=== PATIENT | male | born 1960 | race Caucasian/White ===

== ENCOUNTER 2022-03-19 10:58 | Outpatient (CLI) | payer MEDICARE, SELFPAY | END 2022-03-19 10:59 | disposition home or self-care (01) | LOC: WOUND 10:58 | PROVIDERS: PCP Family Medicine; Visit Provider Nurse Practitioner Family | DX: E11.621 Type 2 diabetes mellitus with foot ulcer (principal); L97.516 Non-pressure chronic ulcer of other part of right foot with bone involvement without evidence of necrosis; M86.171 Other acute osteomyelitis, right ankle and foot; Z79.84 Long term (current) use of oral hypoglycemic drugs; Z79.4 Long term (current) use of insulin | CPT/HCPCS: 11042 ==

== ENCOUNTER 2022-03-26 13:47 | Outpatient (CLI) | payer MEDICARE, SELFPAY | END 2022-03-26 13:48 | disposition home or self-care (01) | LOC: WOUND 13:47 | PROVIDERS: PCP Family Medicine; Visit Provider Nurse Practitioner Family | DX: E11.621 Type 2 diabetes mellitus with foot ulcer (principal); L97.516 Non-pressure chronic ulcer of other part of right foot with bone involvement without evidence of necrosis; M86.171 Other acute osteomyelitis, right ankle and foot; Z79.4 Long term (current) use of insulin; Z79.84 Long term (current) use of oral hypoglycemic drugs | CPT/HCPCS: 11043 ==

== ENCOUNTER 2022-05-28 09:34 | Outpatient (CLI) | payer OTHER, SELFPAY ==
--- NOTE | 2022-05-28 11:00 | CRLHL7_ITS ---
For Patients: As a result of the Cures Act, medical imaging exams and procedure reports are released immediately into your electronic medical record. You may view this report before your referring provider. If you have questions, please contact your health care provider. Indication: previous osteo infection, post-op with infection Technique: Right foot 3 views Comparison: MRI 02/13/2022 Findings: Amputation of the great toe noted. No soft tissue gas. No cortical destruction, periostitis or fracture. Large posterior calcaneal spur. Vascular calcifications. Impression: No evidence of osteomyelitis. Dictated by Joss Reyes MD @ 05/28/2022 11:43:53 AM (Electronically Signed)
== END 2022-05-28 09:35 | disposition home or self-care (01) ==
PROVIDERS: PCP Family Medicine; Visit Provider Nurse Practitioner Family
DX: T81.31XA Disruption of external operation (surgical) wound, not elsewhere classified, initial encounter (principal); E11.621 Type 2 diabetes mellitus with foot ulcer; L97.512 Non-pressure chronic ulcer of other part of right foot with fat layer exposed; Z79.4 Long term (current) use of insulin; Z79.84 Long term (current) use of oral hypoglycemic drugs
CPT/HCPCS: 11042; 73630; 99213

== ENCOUNTER 2022-06-04 11:19 | Outpatient (CLI) | payer OTHER, SELFPAY | END 2022-06-04 11:20 | disposition home or self-care (01) | LOC: WOUND 11:19 | PROVIDERS: PCP Family Medicine; Visit Provider Nurse Practitioner Family | DX: E11.621 Type 2 diabetes mellitus with foot ulcer (principal); T81.31XA Disruption of external operation (surgical) wound, not elsewhere classified, initial encounter | CPT/HCPCS: 11042 ==

== ENCOUNTER 2022-06-04 12:16 | Outpatient (CLI) | payer OTHER, SELFPAY | END 2022-06-04 12:17 | disposition home or self-care (01) | LOC: LAB 12:18 | PROVIDERS: PCP Family Medicine; Visit Provider Nurse Practitioner Family | DX: L97.516 Non-pressure chronic ulcer of other part of right foot with bone involvement without evidence of necrosis (principal) | CPT/HCPCS: 11042; 87070 ==

== ENCOUNTER 2022-06-05 10:45 | Outpatient (CLI) | payer OTHER, SELFPAY ==
--- NOTE | 2022-06-05 11:15 | CRLHL7_ITS ---
For Patients: As a result of the Century Cures Act, medical imaging exams and procedure reports are released immediately into your electronic medical record. You may view this report before your referring provider. If you have questions, please contact your health care provider. HISTORY: Edema/erythema to surgical site in the right foot. Evaluate for osteomyelitis. TECHNIQUE: Axial sagittal and coronal T1, proton density and STIR images were obtained of the right foot without contrast administration. COMPARISON: 05/28/2022 right foot radiographs, 02/13/2022 right foot MRI. FINDINGS: Changes of 1st toe amputation are again noted. Surgical wound at the amputation site with fluid collection in the soft tissues of the surgical bed measuring 1.9 x 0.9 cm (series 5, image 12). T1 bone marrow signal is preserved without evidence of osteomyelitis. - Diffuse superficial and deep soft tissue edema. Diffuse muscle atrophy is again noted. The flexor and extensor tendons are intact. Nodule along the medial band of the plantar aponeurosis is increased in size now measuring 14 x 8 mm previously 11 x 4 mm. Bipartite tibial hallux sesamoid is again noted. Lisfranc ligament is intact. Second 3rd TMT degenerative changes are again noted. - IMPRESSION: 1. Wound at the 1st toe amputation site with fluid collection in the surgical bed. Differential includes seroma or abscess. 2. No evidence of osteomyelitis. 3. Nodule along the medial band of the plantar aponeurosis is increased in size, possibly plantar fibroma. Dictated by Joss Keyes MD @ 06/05/2022 5:15:21 PM (Electronically Signed)
== END 2022-06-05 10:46 | disposition home or self-care (01) ==
LOC: MRI 10:47
PROVIDERS: PCP Family Medicine; Visit Provider Nurse Practitioner Family
DX: E11.621 Type 2 diabetes mellitus with foot ulcer (principal); L97.512 Non-pressure chronic ulcer of other part of right foot with fat layer exposed; R60.9 Edema, unspecified; E11.40 Type 2 diabetes mellitus with diabetic neuropathy, unspecified
CPT/HCPCS: 73718

== ENCOUNTER 2022-07-21 09:52 | Outpatient (CLI) | payer OTHER, SELFPAY ==
[2022-07-21 14:34] LABS: Chloride* 104 mmol/L (96-114); Potassium* 4.8 mmol/L (3.6-5.1); Sodium* 137 mmol/L (135-149)
[2022-07-21 14:37] LABS: Carbon Dioxide* 24 mmol/L (20-32); Creatinine* 1.8 mg/dL (0.5-1.5); Estimated Glomerular Filt Rate 43 ml/min
[2022-07-21 14:38] LABS: Blood Urea Nitrogen* 29 mg/dL (7-30); Calcium* 9.2 mg/dL (8.4-10.6); Glucose* 324 mg/dL (60-115)
== END 2022-07-21 09:53 | disposition home or self-care (01) ==
LOC: FBOREF 09:54
PROVIDERS: PCP Family Medicine; Visit Provider Family Medicine
DX: I10 Essential (primary) hypertension (principal); E11.9 Type 2 diabetes mellitus without complications
CPT/HCPCS: 80048

== ENCOUNTER 2022-07-24 10:01 | Day surgery (SDC) | payer OTHER, SELFPAY ==
[2022-07-24] VITALS (18 sets, daily range): BP systolic 158–191; BP diastolic 86–114; PULSE 89–94; RESP 16–18; TEMP 36.6; O2SAT 98–100; BMI 30.7
[2022-07-24] MEDS: BUPIVACAINE 0.5% 30 ML INJECTION (13:03)
--- NOTE | 2022-07-24 19:05 | P.GSOP_ITS ---
Operative Note Date of procedure: 07/24/22 Type of Procedure: 1. Debridement and partial resection 1st metatarsal right foot 2. Secondary closure of surgical wound dehiscence right foot Procedure Description: After discussing the risks and benefits of the procedure, the patient signed informed consent.? The operative site was marked and the patient was brought to the operating room and placed on the operating table in supine position.? Care was taken to pad the patient's pressure points.?? 30 mL of 0.5% bupivacaine plain was injected into the right foot.?? The operative site was then prepped and draped in the usual sterile fashion.? A time-out was then performed. ? Due to revascularization a tourniquet was not used. Elliptical incision was made around the open wound and then extended proximal on the medial 1st metatarsal. Incision was carried down through skin and subcutaneous tissues directly to bone. Cautery was used to obtained coagulation. All unhealthy tissue from the wound was excised using a rongeur. The tibial and fibular sesamoid bones were identified and excised in total. Wound was explored for loose bony fragments and these were removed. First metatarsal remaining shaft was identified and periosteum reflected proximally. Rongeur was used to take a small bite on the medial 1st metatarsal at a level that did have active bleeding indicating healthy bone. At this level sagittal saw was used to make a transverse cut and the distal portion of the bone removed and sent to pathology. A portion was also sent to culture. The remaining metatarsal head bleeding throughout and appeared healthy. We thoroughly irrigated with normal sterile saline. A #10 SIMÓN drain was placed. Subcutaneous tissues reapproximated with 3- 0 Vicryl and skin reapproximated with 3-0 nylon with multiple retention sutures. Excellent closure was obtained with no stress on the flaps. Sterile dressing was applied. The patient was transported to the recovery area in stable condition. The patient tolerated the procedure well. He will be discharged home. He is weight-bearing to the heel. He is encouraged to rest and elevate as much as possible. He is going to resume his clindamycin as he felt better on that antibiotic and I think the foot looked better while he was on it as well. He is shown how to remove the SIMÓN drain which can be done tomorrow. If increased bleeding is noted drinking remain in and is instructed to call me. Findings: Necrotic bone sent to pathology and culture. Complications: None apparent Anesthesia: local Surgeon: Aries [place] DPM Estimated blood loss (mL): 20 Condition: stable Disposition: same day
== END 2022-07-24 13:41 | disposition home or self-care (01) ==
PROVIDERS: PCP Family Medicine; Visit Provider Podiatrist
PROC: (CPT 11044; principal; 2022-07-24 11:30)
DX: E11.621 Type 2 diabetes mellitus with foot ulcer (principal); L97.414 Non-pressure chronic ulcer of right heel and midfoot with necrosis of bone
CPT/HCPCS: 11044; 28005; 87186; 87205; 88304; 88311; J3490

== ENCOUNTER 2022-10-23 16:37 | Outpatient (CLI) | payer OTHER, SELFPAY ==
[2022-10-23 17:22] LABS: Chloride* 104 mmol/L (96-114); Potassium* 4.6 mmol/L (3.6-5.1); Sodium* 139 mmol/L (135-149)
[2022-10-23 17:25] LABS: Blood Urea Nitrogen* 23 mg/dL (7-30); Calcium* 9.1 mg/dL (8.4-10.6); Carbon Dioxide* 29 mmol/L (20-32); Creatinine* 1.5 mg/dL (0.5-1.5); Estimated Glomerular Filt Rate 53 ml/min; Glucose* 241 mg/dL (60-115); Magnesium* 1.9 mg/dL (1.5-2.6)
== END 2022-10-23 16:38 | disposition home or self-care (01) ==
LOC: NFLDREF 16:38
PROVIDERS: PCP Family Medicine; Visit Provider Family Medicine
DX: I10 Essential (primary) hypertension (principal); N18.30 Chronic kidney disease, stage 3 unspecified; E11.9 Type 2 diabetes mellitus without complications
CPT/HCPCS: 80048; 83735

== ENCOUNTER 2023-05-17 09:14 | Outpatient (CLI) | payer MEDICARE, BC, SELFPAY ==
[2023-05-17 15:03] LABS: Anion Gap 9 mEq/L (7-15); Blood Urea Nitrogen* 28 mg/dL (7-30); Calcium* 9.8 mg/dL (8.4-10.6); Carbon Dioxide* 24 mmol/L (20-32); Chloride* 104 mmol/L (96-114); Cholesterol* 197 mg/dL (90-199); Creatinine* 1.6 mg/dL (0.5-1.5); Estimated Glomerular Filt Rate 49 ml/min; Glucose* 269 mg/dL (60-115); Potassium* 4.8 mmol/L (3.6-5.1); Sodium* 137 mmol/L (135-149); Triglycerides* 258 mg/dL (40-149)
[2023-05-17 15:04] LABS: HDL Cholesterol* 39 mg/dL (>=40); LDL Cholesterol Calculated 106 mg/dL (<100)
== END 2023-05-17 09:15 | disposition home or self-care (01) ==
PROVIDERS: PCP Family Medicine; Visit Provider Family Medicine
DX: I10 Essential (primary) hypertension (principal); E11.9 Type 2 diabetes mellitus without complications; N18.30 Chronic kidney disease, stage 3 unspecified; Z79.4 Long term (current) use of insulin; Z13.6 Encounter for screening for cardiovascular disorders
CPT/HCPCS: 80048; 80061

== ENCOUNTER 2023-08-16 08:18 | Outpatient (CLI) | payer MEDICARE, BC, SELFPAY | END 2023-08-16 08:19 | disposition home or self-care (01) | PROVIDERS: PCP Family Medicine; Visit Provider Family Medicine | DX: E11.9 Type 2 diabetes mellitus without complications (principal); I10 Essential (primary) hypertension; Z12.5 Encounter for screening for malignant neoplasm of prostate; Z79.4 Long term (current) use of insulin | CPT/HCPCS: 80048; 84153 ==

== ENCOUNTER 2023-10-14 09:20 | Outpatient (CLI) | payer MEDICARE, BC, SELFPAY | END 2023-10-14 09:21 | disposition home or self-care (01) | PROVIDERS: PCP Family Medicine; Referring Provider Family Medicine; Visit Provider Otolaryngology | DX: H91.93 Unspecified hearing loss, bilateral (principal); Z13.29 Encounter for screening for other suspected endocrine disorder | CPT/HCPCS: 84443; 85025; 85651; 86039; 86431; 86618 ==

== ENCOUNTER 2023-10-19 09:56 | Outpatient (CLI) | payer MEDICARE, BC, SELFPAY ==
--- NOTE | 2023-10-19 10:00 | CRLHL7_ITS ---
For Patients: As a result of the Century Cures Act, medical imaging exams and procedure reports are released immediately into your electronic medical record. You may view this report before your referring provider. If you have questions, please contact your health care provider. INDICATION: Otorrhea Comparison none. TECHNIQUE: Noncontrast CT of the temporal bones. FINDINGS: Right: The right mastoid air cells and mastoid antrum are clear. Middle ear cavity is clear. Normal articulation of the ossicular chain. No opacification of sinus tympani. Normal tympanic membrane. The external auditory canal is patent. Tegmen tympani is intact. Normal mineralization of the otic capsule. Normal cochlea and vestibule. Marked thinning of the osseous margin of the superior semicircular canal but no peace dehiscence. Normal internal auditory canal. Left: Opacification of the posterior inferior left mastoid air cells. The mastoid air cells and mastoid antrum are clear. Middle ear cavity is clear. Normal articulation of the ossicular chain. No opacification of sinus tympani. Normal tympanic membrane. The external auditory canal is patent. Tegmen tympani is intact. Normal mineralization of the otic capsule. Normal cochlea and vestibule. Marked thinning and focal dehiscence of the osseous margin of the superior semicircular canal (best seen on series 10, image 53; series 7, images 75-76). Normal internal auditory canal. Other: Opacification of the posterior left ethmoid air cells. Remaining visualized paranasal sinuses are clear. No facial fractures. No abnormal soft tissue swelling or inflammation about the methodist bones or mastoid bones. IMPRESSION: 1. Normal right temporal bone structures 2. Opacification of the posterior inferior left mastoid air cells. The remaining left mastoid air cells and middle ear cavity are clear. 3. Marked thinning and focal dehiscence of the osseous margin of the left superior semicircular canal. Please note that all CT scans at this facility use dose modulation, iterative reconstruction, and/or weight-based dosing when appropriate to reduce radiation dose to as low as reasonably achievable. Dictated by Yair Villegas MD @ 10/19/2023 4:36:09 PM (Electronically Signed)
== END 2023-10-19 09:57 | disposition home or self-care (01) ==
LOC: CT 10:03
PROVIDERS: PCP Family Medicine; Visit Provider Otolaryngology
DX: H92.10 Otorrhea, unspecified ear (principal)
CPT/HCPCS: 70480

== ENCOUNTER 2023-11-18 10:01 | Outpatient (CLI) | payer MEDICARE, BC, SELFPAY ==
--- NOTE | 2023-11-18 10:00 | CT_ITS ---
Patient: PILY WILSON Facility:?[facility] Patient ID:?[id number] Site Patient ID:?[id number]. Site :?[id number] Study:?CT-Head WITHOUT-11/18/2023 10:37:12 AM Ordering Physician:?VILMA Final Report: INDICATION: DIZZINESS, GIDDINESS, EAR PAIN AND EYE PRESSURE COMPARISON: 01/27/2023 MRI TECHNIQUE: A CT volumetric acquisition was performed of the brain without IV contrast. Please note that all CT scans at this facility use dose modulation, iterative reconstruction, and/or weight-based dosing when appropriate to reduce radiation dose to as low as reasonably achievable. FINDINGS: Chronic areas of decreased attenuation are present within the periventricular and subcortical white matter bilaterally. Mild generalized cortical atrophy. Degenerative changes at the temporomandibular joints. Partial opacification of the posterior left ethmoid sinus, as before. Mild mucosal thickening within the posterior left maxillary sinus. No midline shift or hydrocephalus. No hemorrhage. IMPRESSION: Chronic white matter changes likely reflecting small-vessel ischemic disease. Generalized cortical atrophy noted. Chronic ischemic change to the telma. No acute findings. Please note that all CT scans at this facility use dose modulation, iterative reconstruction, and/or weight-based dosing when appropriate to reduce radiation dose to as low as reasonably achievable. Dictated by Joss Reyes MD @ 11/18/2023 10:43:32 AM Signed by:?Joss Reyes MD @11/18/2023 10:43:32 AM (Electronic Signature)
== END 2023-11-18 10:02 | disposition home or self-care (01) ==
LOC: CT 10:02
PROVIDERS: PCP Family Medicine; Visit Provider Otolaryngology
DX: R42 Dizziness and giddiness (principal); I67.82 Cerebral ischemia
CPT/HCPCS: 36415; 70450; 82565

== ENCOUNTER 2024-03-20 12:23 | Outpatient (CLI) | payer MEDICARE, BC, SELFPAY ==
--- OUTSIDE RECORDS SUMMARY | 2024-03-20 12:32 | XMS_ITS | Clinical Summary ---
Author Organization [facility] Address [address] [place] [address] Care Team Providers Care Commercial Underwriter Name Role Phone Elsewhere, Pcp Primary Care Provider Unavailabl e Source Comments Patient records contain information from all sites at [facility]. For routine questions regarding patient records, call [phone] during business hours, M-F 8:00 AM - 5:00 PM Central Time. Record requests for emergency care only can be directed to [phone] at any time.[facility] Allergies Active Allergy Reactions Criticality Noted Date Comments Chlorthalidone Hypotension (Reselect Reaction) 01/29/2022 Caused dizziness at 25mg. Empagliflozin GI intolerance 02/09/2022 GI tolerance Lisinopril Other (see comments) 04/15/2017 Methocarbamol Other (see comments) 07/23/2020 Tiff loopy, dizzy for 1.5 days. Nexgpba-Fvl-Svo Reductase Inhibitors Other (see comments) 08/19/2014 Medications Medication Sig Dispensed Refills Start Date End Date Status blood-glucose meter kit Dispense meter, test strips, lancets covered by pt ins. E11.65 IDDM type II, uncontrolled - Test 4 times/day. Reason: High A1C 10/30/2020 Active blood sugar diagnostic (glucose blood) strips Use to test blood glucose twice daily 200 each 3 02/20/2021 Active flash glucose scanning reader (FreeStyle Carmina [address] [place]) miscIndications:Kym betes Mellitus Type 2 With Diabetic Nephropathy (HCC) 1 application daily. 1 each 05/21/2021 Active FreeStyle Carmina 2 Sensor kitIndications:Diab etes Mellitus Type 2 With Diabetic Nephropathy (HCC) CHANGE EVERY 14 DAY 6 each 3 10/28/2021 Active pen needle, diabetic 31 gauge x 5/16 needle 4 Injection daily. Use to inject 4 times daily as directed. 300 each 3 12/23/2021 Active metFORMIN (FORTAMET) 500 mg 24 hr tablet Take 1 tablet (500 mg total) by mouth 2 (two) times a day with meals. 180 tablet 11 01/30/2022 Active Additional Information Patient taking differently:500 mg oralDaily with breakfast, Reported on 11/20/2022 Basaglar KwikPen U-100 Insulin 100 unit/mL (3 mL) injectionIndication s:Diabetes Mellitus Type 2 With Diabetic Nephropathy Hyperglycemic (HCC),Care Home Use Of Insulin Active (HCC) Inject 60 Units under the skin at bedtime. 60 mL 3 01/30/2022 Active clopidogreL (PLAVIX) 75 mg tablet Take 75 mg by mouth daily. 08/31/2022 Active insulin aspart U-100 (NovoLOG FlexPen) 100 unit/mL (3 mL) injection Inject 20 Units under the skin 3 (three) times a day. 10/29/2020 Active Ozempic 1 mg/dose (4 mg/3 mL) injection INJECT 1 MG SUBCUTANEOUSLY ONCE A WEEK 10/20/2022 Active oxyCODONE (OXY-IR) 5 mg immediate release capsule Take 5 mg by mouth as needed. 07/21/2022 Active candesartan (ATACAND) 8 mg tablet Take 1 tablet by mouth once daily 90 tablet 12/28/2022 Active Additional Information Patient not taking.Reported on 03/30/2023 tamsulosin (FLOMAX) 0.4 mg 24 hr capsule Take 0.4 mg by mouth daily. 12/17/2022 Active verapamiL (CALAN-SR) 120 mg ER tablet Take 1 tablet (120 mg total) by mouth at bedtime. 30 tablet 1 01/07/2023 Active gabapentin (NEURONTIN) 300 mg capsule Take 300 mg by mouth as needed. Active Active Problems Problem Noted Date Diagnosed Date Atrial Fibrillation Paroxysmal 01/30/2022 Overview: He developed an episode of afib during a 03/2021 dobutamine stress echo. He has been on aspirin and metoprolol. Body Mass Index 32.0 To 32.9 Adult 01/28/2022 Malabsorption 01/28/2022 Overview: Reduced B12 absorption due to longstanding metformin use. Diabetes Mellitus 2 Ulcer Toe 10/07/2021 Overview: He has a wound on the right first metatarsal since 01/2021, initially he was under the care of podiatry. 08/2021 MRI no osteomyelitis. Required doxycycline 11/2021 for infection. Wound has included silvadene, iodosorb and it was healing well with Apligraf. He then developed cellulitis and toe infection 01/2022 which resulted in the wound opening back up. Xray was negative for osteomyelitis. Cultures prior to antibiotics grew staph lugdunesis. He presented with hypotension and worsening foot infection on 01/28/22 and blood cultures x2 were no growth. Vascular studies: 10/2021 lower extremity ANTOINE with TcPO2. On the R. 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 He also saw Dr. Duong with vascular at that time, no revascularization was recommended. 02/05/22 He initiated care with [facility]. Last Assessment & Plan: He states his wound has worsened since last week. His is doing wound care at home. She states that she cleaned on a pus pocket on Wednesday. He is finishing up his doxycycline for STAPHYLOCOCCUS LUGDUNENSIS 2+ The wound measures 0.5 cm x 0.9 x 0.5 undermining at 3:00 o'clock. The wound bed itself is beefy red. There is periwound excoriation measuring 1.5 x 1.5 cm. The toe is showing erythema. There is no edema in the foot. PROCEDURAL PAUSE Procedural pause conducted to verify: correct patient identity, procedure to be performed, and as applicable, correct side and site, correct patient position, and availability of implants, special equipment, or special requirements. The wound was cleansed with saline and dried. A new wound culture was obtained today. Wound was rinse with saline and cleansed with Hysept 0.5%, rinsed with saline and dried. Sharp debridement was done using a # 3 circular curette to remove the non viable tissue in the periwound skin. No bleeding occurred. Wounds rinse with Saline and dried. KerraCel AG was tucked into the wound bed covered with sterile 2 x [address] with cover stretch tape. I am concerned about his overall constitution. He states his vision is funny his blood pressure is elevated again. He has not started his Ozempic or Jardiance because he did know what he was supposed to do regarding these medications. I suggested he go to [place]' emergency department for his overall constitutional symptoms. I feel he would need Ortho ID and would benefit from hospitalization to workup his multiple chronic medical problems. He is refusing to go. He states he needs to fix his planter. I felt that he needs to be seen in a wound center. He would prefer to not go to [place]. I did put a referral in for him to go to the [facility] wound clinic in [place]. He will call to make an appointment. The benefit of a center such as [place] is the accessibility of hyperbaric therapy, if he would meet the criteria. Hypertensive Chronic Kidney Disease (CKD) Stage 3a Glomerular Filtration Rate (GFR) 45 To 59 03/14/2021 Overview: Losartan replaced with Valsartan 12/2021 Medications: Valsartan 160mg, Metoprolol succinate 150mg (for SVT). 01/28/22: pending brain imaging, holding valsartan due to dizziness with Bps < 170s, likely due to impaired autoregulation of cerebral blood flow. Last Assessment & Plan: Consider screening for Carotid Stenosis, given dizziness with slight decreases in Bps. For now, low Bps likely related to underlying foot infection. Hold Valsartan until Bps normalize. Diabetes Mellitus Type 2 With Diabetic Nephropat hy 11/11/2016 Overview: Diagnosed: Complications: Nephropathy, Neuropathy Medications: Metformin 500 mg bid (max dose with GFR 30-45), Basiglar 60 units, Aspart 15-20 units tid with meals Freestyle Carmina Last Assessment & Plan: At follow up explore adding GLP-1 agonist, SGLT2 inhibitor and reducing insulin. Supraventricular Tachycardia, Unspecified 2016 Resolved Problems Problem Noted Date Diagnosed Date Resolved Date Elevated Alkaline Phosphatase 01/28/2022 01/28/2022 Cough Acute 01/27/2022 01/28/2022 Overview: Productive cough with yellow sputum Last Assessment & Plan: He is complaining of fatigue. He has a cough which is productive with yellow sputum. He denies any fevers. His states ? you can hear it in his chest ? . X-ray was done which was normal. He was put on a Z-Reyes. He should continue the Z-Reyes due to his symptomatology. He will also take Mucinex 600 mg every 12 hours while he has the cough. Chronic Kidney Disease (CKD) , Stage 3a Glomerular Filtration Rate (GFR) 45 To 59 03/14/2021 2021 Other Intervertebral Disc Di splacement Lumbar Region 08/25/2018 01/28/2022 Encounters Date Type Department Care Team Description 01/19/2024 Clinical Communication Department of Otorhinolaryngology in [place], [place] [address] [place] [address] Олег Gracia M.D. Order Request; Pre-visit Intake 01/12/2024 Clinical Communication Department of Otorhinolaryngology in [place], [place] [address] [place] [address] Vinicius Rios M.D. 01/05/2024 Clinical Communication [facility] Emergency Department Formerly [facility], [facility] [place] [phone] Nory Andujar M.S.N., R.N. Follow-up 01/04/2024 1:10 PM CDT - 01/04/2024 5:35 PM CDT Emergency [facility] Emergency Department [address] [place] [phone] Uday Quan APRN, C.N.P., D.N.P. Otitis Externa Acute Left (Primary Dx); Otitis Media Unspecified Left Ear Discharge Disposition: Home or Self Care 01/04/2024 Clinical Communication Department of Otorhinolaryngology in [place], [place] [address] [address] Олег Gracia M.D. 12/29/2023 Clinical Communication Department of Otorhinolaryngology in [place], [place] [address] [address] Олег Gracia M.D. 12/22/2023 11:00 AM CDT Comprehensive Visit Department of Otorhinolaryngology in [place], [place] [address] [address] Олег Gracia M.D. Dizziness (Primary Dx); Imbalance Non Orthopedic; Eustachian Tube Disorder Bilateral from Last 3 Months Immunizations Name Administration Dates Next Due Influenza TIV (IM) 09/28/2011 Influenza, Seasonal, Injectable 09/28/2011 PPSV23 09/28/2011 RZV (SHINGRIX) 02/11/2021(Deferred: Patient karen lobo) SARS-COV-2 (COVID-19) - PFIZ ER (Discontinued)(12 years or older) 12/26/2020,12/05/2020 Td (Adult), adsorbed 11/10/2000 Tdap 09/28/2011 influenza vaccine QV(FLUBLOK ) (18 years or older) (PF) 08/11/2021 influenza vaccine quad (FLUZONE/FLUARIX) (6 months and older)(PF) 07/23/2020,09/06/2019,08/16/2018, 017,11/12/2016 Family History Medical History Relation Name Comments Diabetes mellitus type II Brother 1 Artie Diabetes type II Brother 2 Gar Hypertension Father Stroke Father Diabetes mellitus type II Mother Relation Name Status Comments Brother 1 Artie Alive Brother 2 Gar Alive Father Mother Social History Tobacco Use Types Packs/Day Years Used Date Smoking Tobacco: Former Cigarettes Q uit: 2018 Smokeless Tobacco: Never Tobacco Cessation:Counseling Given: Not Answered Alcohol Use Standard Drinks/Week Comments Yes 1 (1 standard drink = 0.6 oz pur e alcohol) once in a while PHQ-2 Answer Date Recorded PHQ-2 Score 0 09/22/2021 Nutrition Answer Date Recorded Nutrition: EVOO Fat Source Unknown 11/25 Nutrition: Servings of Fruits/Vegetables per Day Not on file 11/25/2020 Dental Answer Date Recorded Dental: Regular Dentist Unknown 11/28/19 21 Sex and Gender Information Value Date Recorded Sex Assigned at Not on file Gender Identity Not on file Sexual Orientation Not on file Last Filed Vital Signs Vital Sign Reading Time Taken Comments Blood Pressure 189/116 01/04/2024 5:15 PM CDT Pulse 91 01/04/2024 5:15 PM CDT Temperature 36.7 ??C (98.1 ??F) 01/04/2024 1:13 PM CD T Respiratory Rate 18 01/04/2024 1:13 PM CDT Oxygen Saturation 99% 01/04/2024 5:15 PM CDT Inhaled Oxygen Concentration - - Weight 112 kg (246 lb 7.6 oz) 01/04/2024 1:12 PM CDT Height 182.3 cm (5' 11.77) 03/30/2023 8:53 AM C DT Body Mass Index 33.64 03/30/2023 8:53 AM CDT Plan of Treatment Upcoming Encounters Date Type Department Care Team (Latest Contact Info) Description 04/04/2024 10:45 AM CDT Diagnostic Department of Otorhinolaryngology in [place], [place] [address] [place] [address] Олег Gracia M.D. [address] [place] [phone] Jo Mota Au.D., M.A. [address] [place] [address] 04/04/2024 1:00 PM CDT Diagnostic Department of Otorhinolaryngology in [place], [place] [address] [place] [address] Олег Gracia M.D. [address] [place] [phone] Glen Graham Au.D. [address] [place] [address] 05/01/2024 12:15 PM CDT Office Visit Department of Neurology in [place], [place] [address] [place] [address] Yunier Galloway M.D., M.P.H. [address] [place] [address] Discharge Disposition: Home or Self Care Health Maintenance Due Date Last Done Comments CT Colonography 1962 Cologuard 1962 Dilated Eye Exam 1962 FIT 1962 Hepatitis C Screening 1962 Pneumococcal vaccine (0-64 y ears) (2 of 2 - PCV) 09/28/2012 09/28/2011 Diabetes Education 02/11/2021 Hemoglobin A1C 03/11/2022 2021, 09/20, 09/18/2021, Additional history exists Urine Albumin 09/18/2022 09/18/2021 Diabetic Office Visit with F oot Exam 10/29/2022 10/29/2021 (Performed elsewhere) COVID-19 Vaccine (4 - 2022-2 4 season) 2023 08/11/2021, 12/26/2020, 12/05/2020 Influenza Vaccine (#1) 2023 , 07/23/2020, 09/06/2019, Additional history exists Office Visit for Blood Press ure Check / Re-check 06/30/2023 03/30/2023 Depression Screening (Annual PHQ-2) 09/20/2023 Lipid (Cholesterol) Screening 11/25/2023, 07/17/2022, 02/02/2022, Additional history exists Creatinine Level (Kidney Fun ction Test) 01/03/2025 01/04/2024, 12/23/2022, 11/24/2022, Additional history exists Potassium Level 01/03/2025 01/04/2024, 0401/2023, 11/24/2022, Additional history exists Sodium Level 01/03/2025 01/04/2024, 03/0 03/2023, 07/20/2022, Additional history exists Colonoscopy 12/03/2027 12/02/2017 Colorectal Cancer Screening 12/03/2027 DTaP,Tdap,and Td Vaccines (3 - Td or Tdap) 04/19/2033 04/19/2023, 09/28/2011, 11/10/2000 Zoster Vaccines Completed 04/19/2023, 02/11/2021 Procedures Procedure Name Priority Date/Time Associated Diagnosis Comments GRAM STAIN Routine 01/04/2024 5:24 PM CDT FUNGAL SMEAR Routine 01/04/2024 5:24 PM CDT BACTERIAL CULTURE, AEROBIC + SUSC Routine 01/04/2024 5:24 PM CDT FUNGAL CULTURE, ROUTINE Routine 01/04/2024 5:24 PM CDT POTASSIUM, S/P STAT 01/04/2024 3:[address] TEMPORAL BONE WITHOUT IV CONTRAST RAD - Routine (most inpatients and all outpatients) 01/04/2024 3:41 PM CDT C-REACTIVE PROTEIN (CRP), S/P STAT 01/04/2024 2:30 PM CDT SEDIMENTATION RATE, B STAT 01/04/2024 2:30 PM CDT CBC WITH DIFFERENTIAL, B STAT 01/04/2024 2:30 PM CDT BASIC METABOLIC PANEL, S/P STAT 01/04/2024 2:30 PM CDT LIPID PANEL, S Routine 11/24/2022 2:57 PM NETWORK PROGRAM MANAGER Hypertensive Chronic Kidney Disease (CKD) Stage 3a Glomerular Filtration Rate (GFR) 45 To 59 (HCC) HEMOGLOBIN A1C, B Routine 2021 10:01 AM CDT Diabetes Mellitus Type 2 With Diabetic Nephropathy (HCC) ALBUMIN, RANDOM, U Routine 09/18/2021 9: 14 AM NETWORK PROGRAM MANAGER Diabetes Mellitus Type 2 Hyperglycemia (HCC) from Last 3 Months or Most Recently Relevant to Health Maintenance Results * (ABNORMAL) Bacterial Culture, Aerobic + Susceptibility (01/04/2024 5:24 PM CDT) Bacterial Culture, Aerobic + Susc With upper respiratory/ora l microbiota(A) 01/08/2024 2:29 PM CDT DTL Bacterial Culture, Aerobic + Susc FILAMENTOUS FUNGUS 2+ (A) 01/08/2024 2:29 PM CDT DTL Comment:Identification repor dat under fungal culture. Swab (Ear, Left) 01/04/2024 5:24 PM CDT 01/04/2024 7:04 PM CDT Comment:Specimen Source Site : Swab Koko Lee P.A.-C. LAB MICROBIOLOGY - GENERAL ORDERABLES Performing Organization Address City/[facility]/ZIP Co de Phone Number [facility] [address] [place] [address], [facility] [place] [address] * (ABNORMAL) Fungal Smear (01/04/2024 5:24 PM CDT) Fungal Smear HYPHAE(A) 01/04/2024 10:21 PM CDT DTL Swab (Ear, Left) 01/04/2024 5:24 PM CDT 01/04/2024 7:04 PM CDT Comment:Specimen Source Site : Swab Koko Lee P.A.-C. LAB MICROBIOLOGY - GENERAL ORDERABLES Performing Organization Address City/[facility]/ZIP Co de Phone Number [facility] [address] [place] [address], [facility] [place] [phone] * (ABNORMAL) Gram Stain (01/04/2024 5:24 PM CDT) Gram Stain GRAM POSITIVE COCCI Rare. (A) 01/04/2024 9:30 PM CDT DTL Swab (Ear, Left) 01/04/2024 5:24 PM CDT 01/04/2024 7:04 PM CDT Comment:Specimen Source Site : Swab Koko Lee P.A.-C. LAB MICROBIOLOGY - GENERAL ORDERABLES Performing Organization Address [facility] Co de Phone Number [facility] [address] [place] [address], [facility] [address] [place] [address] * (ABNORMAL) Fungal Culture, Routine (01/04/2024 5:24 PM CDT) Fungal Culture, Routine ASPERGILLUS FLAVUS COMPLEX Many (A) 01/28/2024 4:05 PM CDT DT Comment: Susceptibility testing is not indicated for all molds. Infectious Diseases consult is required to order mold susceptibility testing. Swab (Ear, Left) 01/04/2024 5:24 PM CDT 01/04/2024 7:04 PM CDT Comment:Specimen Source Site : Swab Koko Lee P.A.-C. LAB MICROBIOLOGY - GENERAL ORDERABLES Performing Organization Address [facility] Co de Phone Number [facility] [address] [place], [place] [address] [address] [place] [address] * Potassium (01/04/2024 3:44 PM CDT) Potassium, P 4.8 3.6 - 5.2 mmol/L 01/04/2024 4:15 PM CDT STMA Blood 01/04/2024 3:44 PM CDT 01/04/2024 3:52 PM CDT Uday Brookesirwan JACOBO C.N.P., Sylvia.N.PJeff L AB BLOOD ADD-ON [facility] [address] [place] [address], [facility] [address] [place] [address] * CT Temporal Bone without IV Contrast (01/04/2024 3:41 PM CDT) Anatomical Region Laterality Modality Head, Neuroradiology RST LOS , Neuroradiology ARZ LOS, Neuroradiology FLA LOS N/A Computed Tomography, Compute d Tomography Impressions 01/04/2024 4:15 PM CDT 1. Findings compatible with left otitis externa and otomastoiditis. No evidence of drainable fluid collection/abscess. 2. Dehiscence of the left superior semicircular canal. Narrative 01/04/2024 4:15 PM CDT EXAM: CT TEMPORAL BONE WITHOUT IV CONTRAST COMPARISON: CT head 12/17/2023 FINDINGS: LEFT: Since 11/27/2023, new soft tissue thickening has appeared throughout the left external auditory canal with associated prominent thickening of the left tympanic membrane. Scattered areas of soft tissue thickening throughout the left middle ear cavity, including Prussak's space without associated osseous erosive or destructive changes. The ossicular chain and scutum are intact. Focal dehiscence of the left superior semicircular canal (7-134, 8-46, 10-80). The left inner ear structures and left IAC are otherwise normal in appearance. Moderate fluid opacification of the left mastoid air cells. No definite evidence of osseous dehiscence, subperiosteal abscess or surrounding inflammatory changes. RIGHT: Thin bone covering of the right superior semicircular canal without evidence of dehiscence. The internal auditory canal, ossicular chain and inner ear structures appear normal. The external auditory canal, middle ear cavity and mastoid air cells are well aerated. Procedure Note Everardo Wiley M.D., Ph.D. - 01/04/2024 EXAM: CT TEMPORAL BONE WITHOUT IV CONTRAST COMPARISON: CT head 12/17/2023 FINDINGS: LEFT: Since 11/27/2023, new soft tissue thickening has appeared throughoutthe left external auditory canal with associated prominent thickening ofthe left tympanic membrane. Scattered areas of soft tissue thickeningthroughout the left middle ear cavity, including Prussak's space without associated osseous erosive ordestructive changes. The ossicular chain and scutum are intact. Focaldehiscence of the left superior semicircular canal (7-134, 8-46, 10-80).The left inner ear structures and left IAC are otherwise normal in appearance. Moderate fluid opacification of the leftmastoid air cells. No definite evidence of osseous dehiscence,subperiosteal abscess or surrounding inflammatory changes. RIGHT: Thin bone covering of the right superior semicircular canal withoutevidence of dehiscence. The internal auditory canal, ossicular chain andinner ear structures appear normal. The external auditory canal, middleear cavity and mastoid air cells are well aerated. IMPRESSION: 1. Findings compatible with left otitis externa and otomastoiditis. Noevidence of drainable fluid collection/abscess. 2. Dehiscence of the left superior semicircular canal. Uday Quan APRN, C.N.P., D.N.P. I MG CT PROCEDURES * (ABNORMAL) Sedimentation Rate (01/04/2024 2:30 PM CDT) [facility] Signature Sedimentation Rate, B 28(H) 2 - 20 mm/h 01/04/2024 3:42 PM CDT DTL Blood (Blood, Venous) 01/04/2024 2:30 PM CDT 01/04/2024 2:45 PM CDT Uday Quan APRN, C.N.P., D.N.P. L AB BLOOD ADD-ON [facility] [address] [place] [address], [place] [facility] [address] [place] [address] * CBC with Differential, Blood (01/04/2024 2:30 PM CDT) [facility] Hemoglobin 14.9 13.2 - 16.6 g/dL 01/04/2024 2:41 PM CDT STMA Hematocrit 42.3 38.3 - 48.6 % 01/04/2024 2:41 PM CDT STMA Erythrocytes 4.68 4.35 - 5.65 x10(12)/L 01/04/2024 2:41 PM CDT ST[facility] MCV 90.4 78.2 - 97.9 fL 01/04/2024 2:41 PM CDT ST[facility] RBC Distrib Width 12.7 11.8 - 14.5 % 01/04/2024 2:41 PM CDT ST[facility] Platelet Count 287 135 - 317 x10(9)/L 01/04/2024 2:41 PM CDT [facility] Leukocytes 6.8 3.4 - 9.6 x10(9)/L 01/04/2024 2:41 PM CDT ST[facility] Neutrophils 4.11 1.56 - 6.45 x10(9)/L 01/04/2024 2:41 PM CDT DH[facility] Lymphocytes 1.71 0.95 - 3.07 x10(9)/L 01/04/2024 2:41 PM CDT STMA Monocytes 0.63 0.26 - 0.81 x10(9)/L 01/04/2024 2:41 PM CDT STMA Eosinophils 0.30 0.03 - 0.48 x10(9)/L 01/04/2024 2:41 PM CDT STMA Basophils 0.07 0.01 - 0.08 x10(9)/L 01/04/2024 2:41 PM CDT ST[facility] Blood (Blood, Venous) 01/04/2024 2:30 PM CDT 01/04/2024 2:38 PM CDT Imtithana Quan APRN, C.N.P., D.N.P. L AB BLOOD ADD-ON [facility] [address] [place] [address], [facility] STMA [facility] [address] [place] [address] [facility] [address] [place] [address] * CRP (C-Reactive Protein) (01/04/2024 2:30 PM CDT) Pathologist [facility] C-Reactive Protein (CRP), S 3.9 <5.0 mg/L 01/04/2024 3:25 PM CDT DT Blood (Blood, Venous) 01/04/2024 2:30 PM CDT 01/04/2024 3:08 PM CDT Uday Quan APRN C.N.P., D.N.P. L AB BLOOD ADD-ON [facility] [address] [place] [address], [facility] [address] [place] [address] * (ABNORMAL) Basic Metabolic Panel (01/04/2024 2:30 PM CDT) [facility] Potassium, P CANCELED mmol/L 01/04/2024 2:55 PM CDT STMA Comment: Specimen was hemolyzed. Redraw has been ordered and is in progress. Result canceled by the ancillary. Sodium, P 140 135 - 145 mmol/L 01/04/2024 2:54 PM CDT STMA Chloride, P 106 98 - 107 mmol/L 01/04/2024 2:54 PM CDT STMA Bicarbonate, P 25 22 - 29 mmol/L 01/04/2024 2:54 PM CDT STMA Anion Gap, P 9 7 - 15 01/04/2024 2:54 PM CDT STMA BUN (Blood Urea Nitrogen), P 30(H) 8 - 24 mg/dL 01/04/2024 2:54 PM CDT STMA Creatinine 1.72(H) 0.74 - 1.35 mg/dL 01/04/2024 2:54 PM CDT STMA Estimated GFR (eGFR) 45(L) >=60 mL/min/BSA 01/04/2024 2:54 PM CDT STMA Comment: Estimated GFR calculated using the 2020 CKD_EPI creatinine equation. Calcium, Total, P 9.7 8.8 - 10.2 mg/dL 01/04/2024 2:54 PM CDT STMA Glucose, P 142(H) 70 - 140 mg/dL 01/04/2024 2:54 PM CDT STMA Blood (Blood, Venous) 01/04/2024 2:30 PM CDT 01/04/2024 2:38 PM CDT Uday Quan APRN C.N.P., D.N.P. L AB BLOOD ADD-ON [facility] [address] [place] [address], [facility] [address] [place] [address] * (ABNORMAL) Lipid Panel (11/24/2022 2:57 PM NETWORK PROGRAM MANAGER) Triglycerides 392(H) mg/dL 11/24/2022 3:36 PM NETWORK PROGRAM MANAGER OWAT Comment: ----REFERENCE VALUE---- Normal: <150 mg/dL Borderline High: 150-199 mg/dL High: 200-499 mg/dL Very High: > or =500 mg/dL Cholesterol, Total 210(H) mg/dL 2022 3:36 PM NETWORK PROGRAM MANAGER OWAT Comment: ----REFERENCE VALUE---- Desirable: < 200 mg/dL Borderline High: 200 - 239 mg/dL High: > or = 240 mg/dL Cholesterol, LDL, Calculated 102 mg/dL 11/24/2022 3:36 PM NETWORK PROGRAM MANAGER OWAT Comment: ----REFERENCE VALUE---- Desirable: <100 mg/dL Above Desirable: 100-129 mg/dL Borderline High: 130-159 mg/dL High: 160-189 mg/dL Very High: >=190 mg/dL ----ADDITIONAL INFORMATION---- LDL cholesterol calculated using the Rivas/NIH equation. Cholesterol, HDL 42 >=40 mg/dL 11/25/19 3:36 PM NETWORK PROGRAM MANAGER OWAT Cholesterol, Non-HDL, Calculated 168(H) mg/dL 11/24/2022 3:36 PM NETWORK PROGRAM MANAGER OWAT Comment: ----REFERENCE VALUE---- Desirable: <130 mg/dL Above Desirable: 130-159 mg/dL Borderline High: 160-189 mg/dL High: 190-219 mg/dL Very High: > or =220 mg/dL Fasting (8 HR or more) No 11/24/2022 3:03 PM NETWORK PROGRAM MANAGER OWAT Blood (Blood, Venous) 11/24/2022 2:57 PM NETWORK PROGRAM MANAGER 11/24/2022 3:03 PM NETWORK PROGRAM MANAGER Glen Patel APRN, C.N.P. LAB BLOOD ADD -ON Performing Organization Address [facility] Co de Phone Number [facility] [address] [place] [address], [facility] OW[address] [facility] [place] [address] [place] [address] * (ABNORMAL) Hemoglobin A1c (2021 10:01 AM CDT) Hemoglobin A1c, B 8.5(H) 4.2 - 5.6 % 2021 2:29 PM CDT AT Comment: Hemoglobin A1c values greater than or equal to 6.5 percent are diagnostic for diabetes mellitus. ??Diagnosis should be confirmed by repeat testing. ??In diabetic patients, HbA1c goals should be discussed with healthcare provider. Blood (Blood, Venous) 2021 10:01 AM CDT 2021 1:46 PM CDT Mayte Berger APRN, C.N.P. LAB BLOOD ADD- ON Performing Organization Address [facility] Co de Phone Number [facility] [address] [place] [address], [facility] [place] [address] [place] [address] * (ABNORMAL) Albumin, Random, Urine (09/18/2021 9:14 AM NETWORK PROGRAM MANAGER) Microalbumin 2618.0 mg/L 09/18/2021 1:27 PM NETWORK PROGRAM MANAGER OWAT Creatinine 200 mg/dL 09/18/2021 11:02 AM NETWORK PROGRAM MANAGER OWAT Albumin/Creatinin e Ratio 1309(H) <17 mg/g 09/18/2021 1:27 PM NETWORK PROGRAM MANAGER OWAT Urine (Urine, Clean Catch) 09/18/2021 9:14 AM NETWORK PROGRAM MANAGER 09/18/2021 10:25 AM NETWORK PROGRAM MANAGER Vinicius Garza M.D. LAB URI NE ORDERABLES [facility] [address] [place] [address], [place] [address] [facility] [place] [address] [place] [address] from Last 3 Months or Most Recently Relevant to Health Maintenance Advance Directives For more information, please contact: [phone] Documents on File Type Date Recorded Patient Camp Housekeeper Expl anation Advance Directives 03/20/2021 2:16 PM Jazz Jones Health Care Directive Healthcare Agents on File Name Relationship Healthcare Agent Relationshi p Communication Jazz Jones Spouse Health Care Agent Aly Jones First Alterna te Health Care Agent Care Teams Commercial Underwriter Relationship Specialty Start Date End Date Elsewhere, Pcp PCP - General Internal Medicine 03/10/22
--- OUTSIDE RECORDS SUMMARY | 2024-03-20 12:32 | XMS_ITS | Encounter Summary ---
Author Organization [facility] Address [address] [place] [address] Care Team Providers Care Host Name Role Phone Elsewhere, Pcp Primary Care Provider Unavailabl e Reason for Visit * Reason Onset Date Comments Follow-up 01/05/2024 Encounter Details Date Type Department Care Team (Late st Contact Info) Description 01/05/2024 Clinical Communication [facility] Emergency Department [address] [place] [phone] Nory Andujar M.SJeffN., R.N. [address] [place] [phone] Follow-up Social History Tobacco Use Types Packs/Day Years Used Date Smoking Tobacco: Former Cigarettes Q uit: 2018 Smokeless Tobacco: Never Alcohol Use Standard Drinks/Week Comments Yes 1 [...] on file Sexual Orientation Not on file documented as of this encounter Miscellaneous Notes * Telephone Encounter - Nory Andujar M.SBridger., R.N. - 01/05/2024 9:00 AM CDT BACKGROUND Date and place of ED encounter being referenced: 01/03 [facility] ED Outcome / Disposition of encounter: Ear pain. Otowick placed and patient given Rxs levofloxacin andofloxacin drops REASON FOR CALL TODAY New or worsening symptom-patient calling stating overnight he noticed 2-3 oz of yellow fluid that sprayed out of his ear when he touched it. His ear felt full of fluid and then he touched it which is when the fluid came out. He states his ear feels very full of fluid and he is dizzy. He states heis having a hard time walking due to this. He is wondering if the otowick is causing the fluid to be trapped. ACTIONS TAKEN DURING CALL Other: ENT electronics design engineer has been paged to discuss. Discussed patient's concerns with Dr. French, ENT. Dr. French states the otowick is helping to open up the ear canal, which is likely why he has more drainage, which is positive from his perspective. He advises leaving the otowick in place until patient has local ENT follow up. We also reviewed gram stain and fungal smear. Dr. French advises no changes be made in plan of care until cultures are available. Called patient back and relayed Dr. French's recommendations. Patient states he feels like the wick is blocking the fluid from draining. Discussed to continue his medications. Advised if he is unable to tolerate current conditions to see a local provider or return to our ED. PLAN OF CARE DISCUSSED Per provider, Dr. French If you feel your symptoms are worsening or you are developing new symptoms that are concerning, please seek evaluation with your local care provider or Emergency Department. ANY ADDITIONAL QUESTIONS OR CONCERNS? Caller has no additional questions or concerns at this time PATIENT'S RESPONSE Verbalizes agreement with plan of care Nory Andujar M.S.N., R.N. 01/05/24 0924 documented in this encounter Plan of Treatment Upcoming Encounters Date Type Department Care Team (Latest Contact Info) Description 04/04/2024 10:45 AM CDT Diagnostic Department of Otorhinolaryngology in [place], [place] [address] [place] [address] Олег Gracia M.D. [address] [place] [phone] Jo Mota Au.D., M.A. [address] [place] [phone] 04/04/2024 1:00 PM CDT Diagnostic Department of Otorhinolaryngology in [place], [place] [address] [place] [phone] Олег Gracia M.D. [address] [place] [phone] Glen Graham Au.D. [address] [place] [phone] 05/01/2024 12:15 PM CDT Office Visit Department of Neurology in [place], [place] [address] [place] [address] Yunier Galloway M.D., M.P.H. [address] [place] [phone] Discharge Disposition: Home or Self Care documented as of this encounter Visit Diagnoses Not on filedocumented in this encounter Care Teams Host Relationship Specialty Start Date End Date Elsewhere, Pcp PCP - General Internal Medicine 03/10/22 documented as of this encounter
--- OUTSIDE RECORDS SUMMARY | 2024-03-20 12:32 | XMS_ITS | Encounter Summary ---
Author Organization [facility] Address [address] [place] [address] Care Team Providers Care Guide Domestic Tour Name Role Phone Elsewhere, Pcp Primary Care Provider Unavailabl e Reason for Referral * Outpatient (Routine) - Authorized Specialty Diagnoses / Procedures Referred By Sri wells Referred To Contact Diagnoses Dizziness Procedures Audio-Vestibular Balance evaluation Олег Gracia M.D. [address] [place] [phone] [facility] Referral ID Status Reason Start Date Expiration Date V isits Requested Visits Authorized [id number] Authorized 01/20/2024 01/19/2025 1 1 Reason for Visit * Reason Onset Date Comments Order Request 01/19/2024 Pre-visit Intake 01/19/2024 Encounter Details Date Type Department Care Team (Latest Contact Info) Description 01/19/2024 Clinical Communication Department of Otorhinolaryngology in [place], [place] [address] [place] [phone] Олег Gracia M.D. [address] [place] [phone] Order Request; Pre-visit Intake Social History Tobacco Use Types Packs/Day Years [...] on file documented as of this encounter Plan of Treatment Upcoming Encounters Date Type Department Care Team (Latest Contact Info) Description 04/04/2024 10:45 AM CDT Diagnostic Department of Otorhinolaryngology in [place], [place] [address] [place] [address] Олег Gracia M.D. [address] [phone] Jo Mota Au.D., M.A. [address] [place] [phone] 04/04/2024 1:00 PM CDT Diagnostic Department of Otorhinolaryngology in [place], [place] [address] [place] [address] Олег Gracia M.D. [address] [phone] Glen Graham Au.D. [address] [place] [phone] 05/01/2024 12:15 PM CDT Office Visit Department of Neurology in [place], [place] [address] [place] [address] Yunier Galloway M.D., M.P.H. [address] [place] [phone] Discharge Disposition: Home or Self Care documented as of this encounter Visit Diagnoses Diagnosis Dizziness- Primary documented in this encounter Care Teams Guide Domestic Tour Relationship Specialty Start Date End Date Elsewhere, Pcp PCP - General Internal Medicine 03/10/22 documented as of this encounter
--- OUTSIDE RECORDS SUMMARY | 2024-03-20 12:32 | XMS_ITS | Clinical Summary ---
Author Organization [employer] [facility] Address [place], [place] [address] Care Team Providers Care Cupola Charger Name Role Phone Joss Manning MD Primary Care Provider + [facility] Care, [place] Unavailable Allergies Active Allergy Reactions Criticality Noted Date Comments Chlorthalidone Hypotension 01/29/2022 Caused dizziness at 25mg. Empagliflozin GI Upset 02/09/2022 GI tolerance Lisinopril Hyperkalemia 04/15/2017 Methocarbamol Dizziness 07/23/2020 [place], dizzy for 1.5 days. Pjljfua-Zbn-Dak Reductase Inhibitors Myalgia 08/19/2014 Medications Medication Sig Dispensed Refills Start Date End Date Status acetaminophen (TYLENOL EXTRA STRGTH) 500 mg tablet Take 2 tablets by mouth every 6 hours if needed. Max acetaminophen dose: 4000mg in 24 hrs. 500 tablet 08/15/2019 Active insulin aspart, U-100, (NOVOLOG FLEXPEN U-100 INSULIN) 100 unit/mL (3 mL) penIndications:Ty pe 2 diabetes mellitus with hyperglycemia, with long-term current use of insulin (HC) Inject 20 units subcutaneous 3 times daily before meals. 6 pen 6 10/29/2020 Active blood-glucose meterIndications: Type 2 diabetes mellitus with hyperglycemia, with long-term current use of insulin (HC) Dispense meter, test strips, lancets covered by pt ins. E11.65 IDDM type II, uncontrolled - Test 4 times/day. Reason: High A1C 1 Device 10/30/2020 Active insulin syringe-needle u-100 1 mL 31 gauge x 02/02Indications:T ype 2 diabetes mellitus with hyperglycemia, with long-term current use of insulin (HC) FOR ADMINISTERING INSULIN AT HOME 100 Each 3 12/07/2020 Active Insulin [place], Disposable, 32 gauge x Indications: Type 2 diabetes mellitus with hyperglycemia, with long-term current use of insulin (HC) USE 1 THREE TIMES DAILY AT HOME 300 Each 3 02/20/2021 Active OneTouch Ultra Blue Test Strip stripIndications: Type 2 diabetes mellitus with hyperglycemia, with long-term current use of insulin (HC) USE TO TEST TWICE DAILY 200 Each 6 02/20/2021 Active flash glucose sensor (FreeStyle Carmina 2 Sensor) kit 1 Kit by Continuous Infusion route. 05/15/2021 Active Basaglar KwikPen U-100 Insulin 100 unit/mL (3 mL) pen INJECT 65 UNITS SUBCUTANEOUS BEFORE BEDTIME 03/10/2021 Active gabapentin (NEURONTIN) 300 mg capsule Take 300 mg by mouth at bedtime. Active Ozempic 0.25 mg or 0.5 mg(2 mg/1.5 mL) pen Inject 0.5 mg subcutaneous once weekly. On Saturdays07/02/2022 Active metoprolol succinate (TOPROL XL) 100 mg Sustained-Release tabletIndications :Hypertension DO NOT take this medication for 2 weeks and until cleared by your PCP (Jul 31) 0 07/18/2022 Active clopidogreL (PLAVIX) 75 mg tabletIndications :Left pontine stroke (HC) Take 1 Tablet (75 mg) by mouth every morning. 30 Tablet 07/18/2022 Active metFORMIN (GLUCOPHAGE XR) 500 mg Extended-Release tabletIndications :Type 2 diabetes mellitus with hyperglycemia, with long-term current use of insulin (HC) Hold your metformin through your vascular procedure. Please hold until your primary care doctor says you are okay to continue. 0 07/18/2022 Active dilTIAZem SR (CARDIZEM SR) 60 mg extended release 12 hr capsule Take 60 mg by mouth. 10/31/2022 Acti ve fluticasone (50 mcg per actuation) nasal solution (FLONASE) USE 2 SPRAY(S) IN EACH NOSTRIL ONCE DAILY 08/24/2023 Active hydrALAZINE (APRESOLINE) 10 mg tablet TAKE 1 TABLET BY MOUTH EVERY 8 HOURS 11/20/2022 Active carvediloL (COREG) 6.25 mg tablet Take 6.25 mg by mouth two times daily with meals. 12/10/2022 Active candesartan (ATACAND) 8 mg tablet Take 8 mg by mouth once daily. Active LORazepam (ATIVAN) 1 mg tablet TAKE 1 TABLET BY MOUTH ONCE NEEDED FOR ANXIETY - TAKE 1 TABLET 2 HOURS BEFORE MRI, REPEAT IN 2 HOURS NEEDED 01/18/2023 Active Active Problems Problem Noted Date Diagnosed Date Type 2 diabetes mellitus wit h kidney complication, with long-term current use of insulin 07/18/2022 PAD (peripheral artery disease) with critical is chemia RLE 07/18/2022 Vision change due to acute p ontine CVA- weakness of left eye abduction- improved 07/18/2022 Left pontine stroke 07/16/2022 Paroxysmal atrial fibrillation 01/30/2022 Overview: He developed an episode of afib during a 03/2021 dobutamine stress echo. He has been on aspirin and metoprolol. Hypertensive kidney disease, stage III Overview: Losartan replaced with Valsartan 12/2021 Medications: [...] foot infection. Hold Valsartan until Bps normalize. 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 January 2018: tried cymbalta and had side effects. ~ February 2018: Left S1 Transforaminal epidural steroid injection by Dr. Howard. ~ Apr 2018: Saw Dr. Soriano, recommended Sacroiliac joint injection and time, no surgical indication. ~ May 2018: left sacroiliac joint injection. ~ August 2018: Starting [facility] physical therapy program. ~ August 2020: L5-S1 TF epidural steroid injection by Dr. Howard. Joint pain 05/31/2017 Dizziness 05/31/2017 Rib pain on right side 11/11/2016 Hyponatremia 11/11/2016 Diabetic nephropathy associa dat with type 2 diabetes mellitus 11/11/2016 SVT (supraventricular tachycardia) 11/11/2016 Influenza A 11/08/2016 Right carpal tunnel syndrome Screening for colon cancer Abdominal bloating Diabetic ulcer of right midf oot associated with diabetes mellitus due to underlying condition, limited to breakdown of skin Rupture of operation wound Change in vision Type 2 diabetes mellitus wit h diabetic peripheral angiopathy without gangrene, with long-term current use of insulin Stage 3 chronic kidney disease Resolved Problems Problem Noted Date Diagnosed Date Resolved Date Type 2 diabetes mellitus with hyperglycemia 08/05/2015 07/18/2022 DIABETES 08/10/2002 08/05/2015 Encounters Date Type Department Care Team Description 03/09/[address] [address] Stanislav Mendoza MD Refill Request (Denied Onetouch Ultra Test / defer to current PCP Early Department of Family Medicine,) from Last 3 Months Immunizations Name Administration Dates Next Due COVID-19 vaccine ([employer] 30mcg/0.3mL) TEETEE CABRERA 12/26/2020,12/05/2020 Influenza RIV4 (Age 18+ Year s) PRESERV FREE 08/11/2021 Influenza, IIV3 (Age >=3 years) 09/28/2011 Influenza, IIV4 07/23/2020, 9,08/16/2018,2016,11/12/2016 Pneumococcal Poly,23-Valent (Pneumovax) 09/28/2011 Td (Age >=7 Years) 11/10/2000 Tdap 09/28/2011 Zoster (Shingrix-RZV, recombinant) 02/11/2021 Family History Medical History Relation Name Comments No Known Problems Brother 1 motorcycle accident Diabetes Brother 2 Prediabetes Hypertension Father Other Father parkinson Stroke Father Cancer Mother adrenal Diabetes Mother Relation Name Status Comments Brother 1 Brother 2 Alive Father Mother Social History Tobacco Use Types Packs/Day Years Used Date Smoking Tobacco: Former Cigarettes 1.5 20 0 11/06/1996 - 11/06/2016 Smokeless Tobacco: Never Tobacco Cessation:Counseling Given: Yes Comments:advised to quit Alcohol Use Standard Drinks/Week Comments Yes 0 (1 standard drink = 0.6 oz pur e alcohol) Rarely/socially PHQ-2 Answer Date Recorded PHQ-2 Score 0 11/19/2018 Social Connections Answer Date Recorded Frequency of Communication with Friends and Fami ly Not on file 09/19/2021 Financial Resource Strain Answer Date R ecorded Difficulty of Paying Living Expenses Not on file 09/19/2021 Difficulty of Paying Living Expenses Not on file 09/19/2021 Sex and Gender Information Value Date Recorded Sex Assigned at Not on file Gender Identity Not on file Sexual Orientation Not on file Obstetrics History Last Filed Vital Signs Vital Sign Reading Time Taken Comments Blood Pressure 194/96 09/01/2023 12:36 PM BLEACHING SUPERVISOR Pulse 95 09/01/2023 12:36 PM BLEACHING SUPERVISOR Temperature 36.4 ??C (97.5 ??F) 09/01/2023 12:[address] Respiratory Rate 18 09/01/2023 12:36 PM BLEACHING SUPERVISOR Oxygen Saturation 98% 09/01/2023 12:36 PM BLEACHING SUPERVISOR Inhaled Oxygen Concentration - - Weight 110.7 kg (244 lb) 09/01/2023 12:36 PM BLEACHING SUPERVISOR Height 180.3 cm (5' 11) 07/20/2022 1:00 PM CDT Body Mass Index 34.03 07/20/2022 1:00 PM CDT Plan of Treatment Health Maintenance Due Date Last Done Comments HIV for age 15-65 1977 Hepatitis C screening for ag e 18-79 1980 Pneumococcal series for age 6-64 (2 of 2 - PCV) 09/28/2012 09/28/[address] (for lung CA) ag e 50-80 2012 Depression screening for age 12+ 08/16/2019 08/16/2018, 11/15/2017, 03/08/2017, Additional history exists BMI (ht and wt on same day) for age 18+ 06/07/2020 06/07/2019, 03/02/2019, 11/21/2018, Additional history exists Zoster (shingles) series for age 50+ (2 of 2) 04/08/2021 02/11/2021 Tetanus booster 09/28/2021 09/28/2011, 11/10/2000 COVID-19 vaccine series (24 season) 2023 08/11/2021, 12/26/2020, 12/05/2020 Influenza for age 50-64 05/21/2024 08/11/20, 07/23/2020, 09/06/2019, Additional history exists Lipids for age 45-75 07/17/2027 07/17/2022, 03/13/2020, 12/16/2018, Additional history exists Colonoscopy through age 75 12/03/2027 12/02/2017 Tdap Completed 09/28/2011 Goals Goal Patient Goal Type Associated Problems Recent Progress Patient-Stated? Author BLOOD PRESSURE - MAINTAINS BP less than 140/90 Blood Pressure No Estrellita Vergara Procedures Procedure Name Priority Date/Time Associated Diagnosis Comments LIPID PANEL Early AM 07/17/2022 6:36 AM CDT COLONOSCOPY 12/02/2017 12:36 PM CDT from Last 3 Months or Most Recently Relevant to Health Maintenance Results * (ABNORMAL) Lipid Panel (07/17/2022 6:36 AM CDT) CHOLESTEROL,TOTAL 145 100 - 199 mg/dL 07/17/2022 8:17 AM CDT [facility] TRIGLYCERIDES 182(H) <150 mg/dL 07/17/2022 8:17 AM CDT [facility] HDL CHOLESTEROL 28(L) >40 mg/dL 8:17 AM CDT [facility] NON-HDL CHOLESTEROL 117 <145 mg/dl 07/17/2022 8:17 AM CDT [facility] CHOL/HDL RATIO 5.18(H) <4.50 07/17/2022 8:17 AM CDT [facility] LDL CHOLESTEROL 81 <=130 mg/dL 07/17/2022 8:17 AM CDT [facility] VLDL CHOLESTEROL 36(H) <=30 mg/dL 07/17/2022 8:17 AM CDT [facility] PROVIDER ORDERED STATUS RANDOM 07/17/2022 8:17 AM CDT [facility] Blood BLOOD SPECIMEN / Unknown Venipuncture / Unknown 07/17/2022 6:36 AM CDT 07/17/2022 7:00 AM CDT Oriana Dawn MD CHEMISTRY [facility] [address] [place] [address], * COLONOSCOPY (12/02/2017 12:36 PM CDT) 12/02/2017 12:3 6 PM CDT Narrative Transcriptions Erik Nicole MD - 12/02/2017 1:02 PM CDT Patient Name: Reggie Jones Procedure Date: 12/02/2017 Gender: Male Date of : 1960 Admit Type: Ambulatory Procedure: Colonoscopy Proceduralist: Erik [facility] Indications/Pre-Op Diagnosis: Screening for colorectal malignantneoplasm Medications: Midazolam 2 mg IV, Fentanyl 25 microgramsIV Procedure Description: The patient had risks, benefits and alternatives explained to andgave informed consent. The patient had a stable cardiopulmonary status and judged an adequate candidate for conscious sedation. The Colonoscope was passed through the anus and advanced to thececum, identified by appendiceal orifice and ileocecal valve. Thecolonoscopy was performed without difficulty. The patient tolerated the procedure well. The quality of the bowel preparation was good. Complications: No immediate complications. Estimated Blood Loss & Specimen: Estimated blood loss: none. Specimen collected - None Findings: The perianal and digital rectal examinations were normal. A few medium-mouthed diverticula were found in the sigmoid colon. Retroflexion in the right colon was performed. The retroflexed view of the distal rectum and anal verge was normaland showed no anal or rectal abnormalities. The exam was otherwise normal throughout the examined colon. Impressions/Post-Op Diagnosis: - Diverticulosis in the sigmoid colon. - No specimens collected. Recommendation: - Discharge patient to home. - Resume previous diet. - Continue present medications. - Repeat colonoscopy in 10 years for surveillance. Moderate Sedation: please see sedation report above. Sedation was given under thedirection of the endoscopist. please see sedation report above. Sedation was given under thedirection of the endoscopist. Moderate (conscious) sedation was administered by the endoscopy nurse and supervised by the endoscopist. The following parameters were monitored: oxygen saturation, heart rate, blood pressure, andresponse to care. Total physician intraservice time was 42 minutes. Erik Nicole, 12/02/2017 1:02:49 PM This report has been signed electronically. Note Initiated On: 12/02/2017 12:36 PM Erik Nicole MD PROCEDURE ORD from Last 3 Months or Most Recently Relevant to Health Maintenance Reggie Jones Workers Comp Self 1960 [id number] [place] [address] Reggie Jones Workers Comp Self 1960 [id number] [facility] [place] [address] Reggie Jones Workers Comp Self 1960 [id number] [place] [address] Reggie Jones Personal/Famil y Self 1960 [id number] [place] [id number] Advance Directives Documents on File Type Date Recorded Patient Distribution Driver Expl anation Healthcare Directive 02/11/2021 021 * Full Code (Latest Code Status on File) Date Activated Date Inactivated Comments 07/16/2022 4:41 PM 07/18/2022 2:11 PM Question Answer Comments Code Status Discussion: Reviewed Preferences * Full Code Date Activated Date Inactivated Comments 06/15/2022 7:36 AM 06/15/2022 12:52 PM Question Answer Comments Code Status Discussion: Reviewed Preferences * Full Code Date Activated Date Inactivated Comments 04/13/2022 8:59 AM 04/13/2022 1:15 PM Question Answer Comments Code Status Discussion: Unable to Assess Preferences, Provider to review later * Full Code Date Activated Date Inactivated Comments 04/13/2022 8:59 AM 04/13/2022 8:59 AM Question Answer Comments Code Status Discussion: Unable to Assess Preferences, Provider to review later * Full Code Date Activated Date Inactivated Comments 04/06/2017 10:39 AM 04/06/2017 4:43 PM Care Teams Cupola Charger Relationship Specialty Start Date End Date Joss Manning MD [address] [place] [id number] PCP - General Family Practice 06/20/[address] [address] 07/18/22
--- OUTSIDE RECORDS SUMMARY | 2024-03-20 12:32 | XMS_ITS | Encounter Summary ---
Author Organization [facility] Address [address] [place] [address] Care Team Providers Care Housekeeper Name Role Phone Elsewhere, Pcp Primary Care Provider Unavailabl e Encounter Details Date Type Department Care Team (Latest Contact Info) Description 01/12/2024 Clinical Communication Department of Otorhinolaryngology in [place], [place] [address] [place] [phone] Vinicius Rios M.D. [address] [place] [phone] Social History Tobacco Use Types Packs/Day Years [...] AM CDT Diagnostic Department of Otorhinolaryngology in [place], [place] [address] [place] [phone] Олег Gracia M.D. [address] [phone] Jo Mota Au.D., M.AJeff [address] [phone] 04/04/2024 1:00 PM CDT Diagnostic Department of Otorhinolaryngology in [place], [place] [address] [place] [phone] Олег Gracia M.D. [address] [place] [phone] Glen Graham Au.D. [address] [phone] 05/01/2024 12:15 PM CDT Office Visit Department of Neurology in [address] [phone] Yunier Galloway M.D., M.P.H. [address] [place] [phone] Discharge Disposition: Home or Self Care documented as of this encounter Visit Diagnoses Not on filedocumented in this encounter Care Teams Housekeeper Relationship Specialty Start Date End Date Elsewhere, Pcp PCP - General Internal Medicine 03/10/22 documented as of this encounter
--- OUTSIDE RECORDS SUMMARY | 2024-03-20 12:32 | XMS_ITS ---
Author Organization [facility] Address [address] [place] [address] Care Team Providers Care Compounder Flavorings Name Role Phone Unavailable Unavailable Unavailable Surgery Details Not on file Complications Check Surgery Details section. Procedure Estimated Blood Loss Check Surgery Details section. Procedure Findings Check Surgery Details section. Procedure Specimens Taken Check Surgery Details section.
--- OUTSIDE RECORDS SUMMARY | 2024-03-20 12:32 | XMS_ITS | Encounter Summary ---
Author Organization [facility] Address [address] [place] [address] Care Team Providers Care Aerial Installer Name Role Phone Elsewhere, Pcp Primary Care Provider Unavailabl e Encounter Details Date Type Department Care Team (Latest Contact Info) Description 12/29/2023 Clinical Communication Department of Otorhinolaryngology in [place], [place] [address] [phone] Олег Gracia M.D. [address] [phone] Social History Tobacco Use Types Packs/Day Years Used Date Smoking Tobacco: Former Cigarettes Q uit: 2018 Smokeless Tobacco: Never Alcohol Use Standard Drinks/Week Comments Yes 1 (1 standard drink = 0.6 oz pur e alcohol) Occ. PHQ-2 Answer Date Recorded PHQ-2 Score 0 [...] AM CDT Diagnostic Department of Otorhinolaryngology in [place], [place] [address] [place] [address] Олег Gracia M.D. [address] [place] [phone] Jo Mota Au.D., M.A. [address] [place] [address] 04/04/2024 1:00 PM CDT Diagnostic Department of Otorhinolaryngology in [place], [place] [address] [place] [address] Олег Gracia M.D. [address] [place] [phone] Glen Graham Au.D. 200 [place] [phone] 05/01/2024 12:15 PM CDT Office Visit Department of Neurology in [place], [place] [address] [place] [address] Yunier Galloway M.D., M.P.H. [address] [place] [address] Discharge Disposition: Home or Self Care documented as of this encounter Visit Diagnoses Not on filedocumented in this encounter Care Teams Aerial Installer Relationship Specialty Start Date End Date Elsewhere, Pcp PCP - General Internal Medicine 03/10/22 documented as of this encounter
--- OUTSIDE RECORDS SUMMARY | 2024-03-20 12:32 | XMS_ITS | Encounter Summary ---
Author Organization [facility] Address [address] [place] [address] Care Team Providers Care Helicopter Mechanic Name Role Phone Elsewhere, Pcp Primary Care Provider Unavailabl e Encounter Details Date Type Department Care Team (Latest Contact Info) Description 01/04/2024 Clinical Communication Department of Otorhinolaryngology in [place], [place] [address] [phone] Олег Gracia M.D. [address] [phone] Social History Tobacco Use Types [...] AM CDT Diagnostic Department of Otorhinolaryngology in [place], [place] [address] [place] [address] Олег Gracia M.D. [address] [place] [phone] Jo Mota Au.D., M.A. [address] [place] [address] 04/04/2024 1:00 PM CDT Diagnostic Department of Otorhinolaryngology in [place], [place] [address] [place] [address] Олег Gracia M.D. [address] [place] [address] Glen Graham Au.D. 200 [place] [phone] 05/01/2024 12:15 PM CDT Office Visit Department of Neurology in [place], [place] [address] [place] [address] Yunier Galloway M.D., M.P.H. [address] [place] [address] Discharge Disposition: Home or Self Care documented as of this encounter Visit Diagnoses Not on filedocumented in this encounter Care Teams Helicopter Mechanic Relationship Specialty Start Date End Date Elsewhere, Pcp PCP - General Internal Medicine 03/10/22 documented as of this encounter
--- OUTSIDE RECORDS SUMMARY | 2024-03-20 12:32 | XMS_ITS | Continuity of Care Document ---
Author Organization [facility] Address [address] [place] [address] Phone Care Team Providers Care Cut Off Saw Operator Pipe Blanks Name Role Phone Josr Bealsey MD Unavailable Unavailable Allergies, Adverse Reactions, Alerts Substance Reaction Status Criticality No Known Allergies Active No Inform ation Medications Medication Instructions Dosage Effective Dates (start - stop) Status Comments GABAPENTIN (unknown strength) Not Available - Active NORCO (unknown strength) Not Available - A ctive ASPIRIN (unknown strength) Not Available - Active CHLORTHALIDONE (unknown strength) Not Available - Active GLIPIZIDE (unknown strength) Not Available - Active LANTUS (unknown strength) Not Available - Active NOVOLOG PENFILL (unknown strength) Not Available - Active METFORMIN HCL (unknown strength) Not Available - Active TIZANIDINE HCL (unknown strength) Not Available - Active Procedures Procedure Date Office/Outpatient Visit,Est, Mod 2020 Office/Outpatient Visit,New, Mod 2017 Advance Directives Directive Yes / No Effective Date File Name No Information Encounters Encounter Description Practice Location Reason(s) For Visit Diagnoses Date Provider Providers Copied on Encounter [facility], [address], [place], [id number] , [place] tel: [phone] [facility] No Information [address] [facility], [address] [place] [address], [address], [place], [id number] , [place]. tel: [phone] Office/Outpa tient Visit,Est, Mod [facility], [address], [place], [id number] , [place] tel: [phone] [facility] Other intervertebral disc displacement, lumbar regionRadiculop athy, lumbar regionSpinal stenosis, lumbar region with neurogenic claudication [address] [place]. [facility], [address], [address], [place], [place], [id number] , [place]. tel:[phone] Referring Provider: Woodrow [place] [address] [place], [address]. [phone] Office/Outpa tient Visit,New, Mod [facility], [address], [place], [place], [id number] , [place] tel:[phone] [facility] Other intervertebral disc displacement, lumbar region [address] [place]. [facility], [address], [address], [place], [place], [id number] , . tel:[phone] Referring Provider: Woodrow [place] [address] [facility] [place], [address]. tel:[phone] Family History Family Member Type Diagnosis Age At Onset No Information Payers Payer name Insurance type Covered constitution party ID Danay sadler(s) Risk Administration Service [id number] Social History Type Description Quantity Date Captured Comments Sex Male Smoking Status No Information Chief Complaint And Reason For Visit No Information Reason For Referral Reason For Referral No Information History Of Present Illness Encounter Date Complaint History Of Prese nt Illness No Information Functional Status Date Functional Assessmen t No Information Instructions Date Instruction Additional Infor mation No Information Assessments Type Assessment Date No Information Patient Care Teams Name Effective Dates (start - stop) Status Members No Information
--- OUTSIDE RECORDS SUMMARY | 2024-03-20 12:32 | XMS_ITS | Referral Summary ---
Author Organization [facility] Address [address] [place] [address] Care Team Providers Care Peripheral Vascular Tech Name Role Phone Elsewhere, Pcp Primary Care Provider Unavailabl e Source Comments Patient records contain information from all sites at [facility]. For routine questions regarding patient records, call [phone] during business hours, M-F 8:00 AM - 5:00 PM Central Time. Record requests for emergency care only can be directed to [phone] at any time.[facility] Encounters Date Type Department Care Team Description 01/19/2024 Clinical Communication Department of Otorhinolaryngology in [place], [place] [address] [place] [address] Олег Gracia M.D. Order Request; Pre-visit Intake 01/12/2024 Clinical Communication Department of Otorhinolaryngology in [place], [place] [address] [place] [address] Vinicius Rios M.D. 01/05/2024 Clinical Communication [facility] Emergency Department [address] [place] [phone] Nory Andujar M.S.N., R.N. Follow-up 01/04/2024 1:10 PM CDT - 01/04/2024 5:35 PM CDT Emergency [facility] Emergency Department [address] [place] [phone] Uday Quan APRN, C.N.P., D.N.P. Otitis Externa Acute Left (Primary Dx); Otitis Media Unspecified Left Ear Discharge Disposition: Home or Self Care 01/04/2024 Clinical Communication Department of Otorhinolaryngology in [address] [phone] Олег Gracia M.D. 12/29/2023 Clinical Communication Department of Otorhinolaryngology in [address] [phone] Олег Gracia M.D. 12/22/2023 11:00 AM CDT Comprehensive Visit Department of Otorhinolaryngology in [address] [phone] Олег Gracia M.D. Dizziness (Primary Dx); Imbalance Non Orthopedic; Eustachian Tube Disorder Bilateral from Last 3 Months Allergies Active Allergy Reactions Criticality Noted Date Comments Chlorthalidone Hypotension (Reselect Reaction) 01/29/2022 Caused dizziness at 25mg. Empagliflozin GI intolerance 02/09/2022 GI tolerance Lisinopril Other (see comments) 04/15/2017 Methocarbamol Other (see comments) 07/23/2020 [place] loopy, dizzy for 1.5 days. Vzdikra-Rbk-Bed Reductase Inhibitors Other (see comments) 08/19/2014 Medications [...] flash glucose scanning reader (FreeStyle Carmina 2 [place]) miscIndications:Kym betes Mellitus Type 2 With Diabetic [...] Mellitus Type 2 With Diabetic Nephropathy Hyperglycemic (HCC),Installation Helper Use Of Insulin Active (HCC) Inject 60 [...] was recommended. 02/05/22 He initiated care with [facility] Wound center. Last Assessment & Plan: He [...] occurred. Wounds rinse with Saline and dried. [employer] was tucked into the wound bed [...] these medications. I suggested he go to [facility] emergency department for his overall constitutional symptoms. I feel he would need Ortho ID and would benefit from hospitalization to workup his multiple chronic medical problems. He is refusing to go. He states he needs to fix his planter. I felt that he needs to be seen in a wound center. He would prefer to not go to [place]. I did put a referral in for him to go to the [facility] wound clinic in [place]. He will call to make an appointment. The benefit of a center such as [place] is the accessibility of hyperbaric therapy, if [...] Disc Di splacement Lumbar Region 08/25/2018 01/28/2022 Immunizations Name Administration Dates Next Due Influenza TIV (IM) 09/28/2011 Influenza, Seasonal, Injectable 09/28/2011 PPSV23 09/28/2011 RZV (SHINGRIX) 02/11/2021(Deferred: Patient karen tian) SARS-COV-2 (COVID-19) - PFIZ ER (Discontinued)(12 years or older) 12/26/2020,12/05/2020 Td (Adult), adsorbed 11/10/2000 Tdap 09/28/2011 influenza vaccine QV(FLUBLOK ) (18 years or older) (PF) 08/11/2021 influenza vaccine quad (FLUZONE/FLUARIX) (6 months and older)(PF) 07/23/2020,09/06/2019,08/16/2018, 017,11/12/2016 Social History Tobacco Use Types Packs/Day Years [...] AM CDT Diagnostic Department of Otorhinolaryngology in [place], [place] [address] [place] [address] Олег Gracia M.D. [address] [place] [phone] Jo Mota Au.D., M.A. [address] [place] [phone] 04/04/2024 1:00 PM CDT Diagnostic Department of Otorhinolaryngology in [place], [place] [address] [place] [phone] Олег Gracia M.D. [address] [place] [phone] Glen Graham Au.D. [address] [place] [phone] 05/01/2024 12:15 PM CDT Office Visit Department of Neurology in [place], [place] [address] [place] [address] Yunier Galloway M.D., M.P.H. [address] [place] [phone] Discharge Disposition: Home or Self Care Procedures Procedure Name Priority Date/Time Associated Diagnosis [...] LIPID PANEL, S Routine 11/24/2022 2:57 PM COIN MACHINE SERVICE REPAIRER Hypertensive Chronic Kidney Disease (CKD) Stage 3a Glomerular Filtration Rate (GFR) 45 To 59 (HCC) HEMOGLOBIN A1C, B Routine 2021 10:01 AM CDT Diabetes Mellitus Type 2 With Diabetic Nephropathy (HCC) ALBUMIN, RANDOM, U Routine 09/18/2021 9: 14 AM COIN MACHINE SERVICE REPAIRER Diabetes Mellitus Type 2 Hyperglycemia (HCC) from [...] MICROBIOLOGY - GENERAL ORDERABLES Performing Organization Address City/[facility]/ZIP Co de Phone Number [facility] [address] [place] [address], [facility] [address] [place] [address] * (ABNORMAL) Fungal Smear (01/04/2024 5:24 PM CDT) Fungal Smear HYPHAE(A) 01/04/2024 10:21 PM CDT DTL Swab (Ear, Left) 01/04/2024 5:24 PM CDT 01/04/2024 7:04 PM CDT Comment:Specimen Source Site : Swab Koko Lee P.A.-C. LAB MICROBIOLOGY - GENERAL ORDERABLES Performing Organization Address City/[facility]/ZIP Co de Phone Number [facility] [address] [place] [address], [facility] [address] [place] [address] * (ABNORMAL) Gram Stain (01/04/2024 5:24 PM CDT) Gram Stain GRAM POSITIVE COCCI Rare. (A) 01/04/2024 9:30 PM CDT DTL Swab (Ear, Left) 01/04/2024 5:24 PM CDT 01/04/2024 7:04 PM CDT Comment:Specimen Source Site : Swab Koko Lee P.A.-C. LAB MICROBIOLOGY - GENERAL ORDERABLES Performing Organization Address [facility] de Phone Number [facility] [address] [place] [address] * (ABNORMAL) Fungal Culture, Routine (01/04/2024 5:24 PM CDT) [facility] Fungal Culture, Routine ASPERGILLUS FLAVUS COMPLEX Many (A) 01/28/2024 4:05 PM CDT DT Comment: Susceptibility testing is not indicated for all molds. Infectious Diseases consult is required to order mold susceptibility testing. Swab (Ear, Left) 01/04/2024 5:24 PM CDT 01/04/2024 7:04 PM CDT Comment:Specimen Source Site : Swab Koko Lee P.A.-C. LAB MICROBIOLOGY - GENERAL ORDERABLES Performing Organization Address [facility] de Phone Number [facility] [address] [place] [address], [facility] [address] [place] [address] * Potassium (01/04/2024 3:44 PM CDT) Pathologist [facility] Potassium, P 4.8 3.6 - 5.2 mmol/L 01/04/2024 4:15 PM CDT STMA Blood 01/04/2024 3:44 PM CDT 01/04/2024 3:52 PM CDT Uday Quan APRN, C.N.P., D.N.P. L AB BLOOD ADD-ON [facility] [address] [place] [address], [place] [facility] [facility] [employer] [facility] [address] [place] [address] * CT Temporal Bone without IV Contrast [...] (ABNORMAL) Sedimentation Rate (01/04/2024 2:30 PM CDT) Pathologist [facility] Sedimentation Rate, B 28(H) 2 - 20 mm/h 01/04/2024 3:42 PM CDT DTL Blood (Blood, Venous) 01/04/2024 2:30 PM CDT 01/04/2024 2:45 PM CDT Uday Quan APRN, C.N.P., D.N.P. L AB BLOOD ADD-ON [facility] [address] [place] [address], [facility] [address] [place] [address] * CBC with Differential, Blood (01/04/2024 2:30 PM CDT) Pathologist [facility] Hemoglobin 14.9 13.2 - 16.6 g/dL [...] APRN, C.N.P., D.N.P. L AB BLOOD ADD-ON [facility] [address] [place] [address], [facility] STMA [facility] [address] [place] [address] [facility] [address] [place] [address] * CRP (C-Reactive Protein) (01/04/2024 2:30 PM CDT) C-Reactive Protein (CRP), S 3.9 <5.0 mg/L 01/04/2024 3:25 PM CDT DTL Blood (Blood, Venous) 01/04/2024 2:30 PM CDT 01/04/2024 3:08 PM CDT Uday Quan APRN, C.N.P., D.N.P. L AB BLOOD ADD-ON [facility] [address] [place] [address], [facility] [address] [place] [address] * (ABNORMAL) Basic Metabolic Panel (01/04/2024 2:30 PM CDT) Pathologist [facility] Potassium, P CANCELED mmol/L 01/04/2024 2:55 [...] 2:30 PM CDT 01/04/2024 2:38 PM CDT Imtithal Kadeem CENTENO C.N.P., D.N.P. L AB BLOOD ADD-ON [facility] [address] [place] [address], [facility] [address] [place] [address] * (ABNORMAL) Lipid Panel (11/24/2022 2:57 PM COIN MACHINE SERVICE REPAIRER) Triglycerides 392(H) mg/dL 11/24/2022 3:36 PM COIN MACHINE SERVICE REPAIRER [facility]AT Comment: ----REFERENCE VALUE---- Normal: <150 mg/dL Borderline High: 150-199 mg/dL High: 200-499 mg/dL Very High: > or =500 mg/dL Cholesterol, Total 210(H) mg/dL 2022 3:36 PM COIN MACHINE SERVICE REPAIRER [place] Comment: ----REFERENCE VALUE---- Desirable: < 200 mg/dL Borderline High: 200 - 239 mg/dL High: > or = 240 mg/dL Cholesterol, LDL, Calculated 102 mg/dL 11/24/2022 3:36 PM COIN MACHINE SERVICE REPAIRER [place] Comment: ----REFERENCE VALUE---- Desirable: <100 mg/dL Above Desirable: 100-129 mg/dL Borderline High: 130-159 mg/dL High: 160-189 mg/dL Very High: >=190 mg/dL ----ADDITIONAL INFORMATION---- LDL cholesterol calculated using the Rivas/NIH equation. Cholesterol, HDL 42 >=40 mg/dL 11/25/19 3:36 PM COIN MACHINE SERVICE REPAIRER OWAT Cholesterol, Non-HDL, Calculated 168(H) mg/dL 11/24/2022 3:36 PM COIN MACHINE SERVICE REPAIRER [place] Comment: ----REFERENCE VALUE---- Desirable: <130 mg/dL Above Desirable: 130-159 mg/dL Borderline High: 160-189 mg/dL High: 190-219 mg/dL Very High: > or =220 mg/dL Fasting (8 HR or more) No 11/24/2022 3:03 PM COIN MACHINE SERVICE REPAIRER [place] Blood (Blood, Venous) 11/24/2022 2:57 PM COIN MACHINE SERVICE REPAIRER 11/24/2022 3:03 PM COIN MACHINE SERVICE REPAIRER Glen Patel APRN, C.N.P. LAB BLOOD ADD -ON Performing Organization Address [facility] Co de Phone Number - [facility] [address] [place] [address], [facility] OWAT [facility] [place] [address], [place] [address] * (ABNORMAL) Hemoglobin A1c (2021 10:01 AM CDT) Hemoglobin A1c, B 8.5(H) 4.2 - 5.6 % 2021 2:29 PM CDT OWAT Comment: Hemoglobin A1c values greater than or equal to 6.5 percent are diagnostic for diabetes mellitus. ??Diagnosis should be confirmed by repeat testing. ??In diabetic patients, HbA1c goals should be discussed with healthcare provider. Blood (Blood, Venous) 2021 10:01 AM CDT 2021 1:46 PM CDT Mayte Berger APRN, C.N.P. LAB BLOOD ADD- ON Performing Organization Address [facility] Co de Phone Number - [facility] [address] [place] [address], [place] [facility] [facility] [place] [address], [place] [address] * (ABNORMAL) Albumin, Random, Urine (09/18/2021 9:14 AM COIN MACHINE SERVICE REPAIRER) Microalbumin 2618.0 mg/L 09/18/2021 1:27 PM COIN MACHINE SERVICE REPAIRER [facility] Creatinine 200 mg/dL 09/18/2021 11:02 AM COIN MACHINE SERVICE REPAIRER [facility] Albumin/Creatinin e Ratio 1309(H) <17 mg/g 09/18/2021 1:27 PM COIN MACHINE SERVICE REPAIRER [facility] Urine (Urine, Clean Catch) 09/18/2021 9:14 AM COIN MACHINE SERVICE REPAIRER 09/18/2021 10:25 AM COIN MACHINE SERVICE REPAIRER Vinicius Garza M.D. LAB URI NE ORDERABLES - [facility] [address] [place] [address], [place] [facility] [place] [address] [place] [address] from Last 3 Months or Most Recently Relevant to Health Maintenance Advance Directives For more information, please contact: [phone] Documents on File Type Date Recorded Patient Quality Manager Expl anation Advance Directives 03/20/2021 2:16 PM Jazz Jones Health Care Directive Healthcare Agents on File Name Relationship Healthcare Agent Relationshi p Communication Jazz Jones Spouse Health Care Agent Aly Jones First Alterna te Health Care Agent Care Teams Peripheral Vascular Tech Relationship Specialty Start Date End Date Elsewhere, Pcp PCP - General Internal Medicine 03/10/22
--- OUTSIDE RECORDS SUMMARY | 2024-03-20 12:32 | XMS_ITS | Encounter Summary ---
Author Organization [facility] Address [address] [place] [address] Care Team Providers Care Dermatology Physician Name Role Phone Elsewhere, Pcp Primary Care Provider Unavailabl e Reason for Referral * Outpatient (Routine) - Authorized Specialty Diagnoses / Procedures Referred By Sri wells Referred To Contact Otorhinolaryngology Diagnoses Dizziness Imbalance Non Orthopedic Eustachian Tube Disorder Bilateral Олег Gracia M.D. [address] [place] [address] [facility] Referral ID Status Reason Start Date Expiration Date V isits Requested Visits Authorized [id number] Authorized 12/22/2023 06/22/2025 1 1 Reason for Visit * Reason Comments Otitis Media * Appointment Request (Routine) - Closed Specialty Diagnoses / Procedures Referred By Sri wells Referred To Contact Otorhinolaryngology Referral ID Status Reason Start Date Expiration Date Visits Re quested Visits Authorized [id number] Closed 11/09/2023 11/08/2024 1 1 Encounter Details Date Type Department Care Team (Latest Contact Info) Description 12/22/2023 11:00 AM CDT Comprehensive Visit Department of Otorhinolaryngology in [place], [place] [address] [place] [address] Олег Gracia M.D. [address] [place] [address] (work) Dizziness (Primary Dx); Imbalance Non Orthopedic; Eustachian Tube Disorder Bilateral Social History Tobacco Use Types Packs/Day Years [...] Date Recorded Dental: Regular Dentist Unknown 11/28/19 Sex and Gender Information Value Date Recorded Sex Assigned at Not on file Gender Identity Not on file Sexual Orientation Not on file documented as of this encounter Consult Notes * Олег Gracia M.D. - 12/22/2023 11:00 AM CDT Referring Provider: No ref. provider found Primary Care Provider: ELSEWHERE, PCP CHIEF COMPLAINT / REASON FOR VISIT Reggie Jones is a 63 y.o. male who presents for evaluation of Otitis Media. ENT PROGRESS NOTE: HISTORY OF PRESENT ILLNESS Patient is a pleasant 63-year-old male here with his for 2nd opinion evaluation of his ears. He has a complicated ear history with extensive workup with Dr. Silveira in [place]. He had a history of a CVA 2 years ago. Denies problems with a plugged sensation and pressure in the left ear as well as dizziness and imbalance particularly when walking. He has had a CT scan of the temporal bone was reported out as normal. He was unable tolerate an open MRI. He has been using Flonase intranasalsteroid spray. His symptoms started 4 months ago. Recently 1 week ago he had a left PE tube placed.Symptoms improved initially however he now feels they are worse with the pressure sensation and imbalance. Past Medical History: Diagnosis Date Chronic Kidney Disease (CKD), Stage 3a Glomerular Filtration Rate (GFR) 45 To 59 ([facility]) 03/14/2021 Diabetes Mellitus 2 Ulcer Toe ([facility]) 10/07/2021 He has a wound on the first metatarsal since 02/07. He has been under the care of the insurance claims representative. Hewas told he needs an amputation. He had a recent negative MRI. Wound has included silvadene Then iodosorb. He stated nothing is working' He does have an appointment with vascular in [place] for venous/arterial competency. Doppler was used to ascertain pedal pulse. Tendon visualized. Diabetes Mellitus Type 2 With Diabetic Nephropathy (HCC) 11/11/2016 Hypertension Essential Primary 03/14/2021 Hypertensive Chronic Kidney Disease (CKD) Stage 3a Glomerular Filtration Rate (GFR) 45 To 59 (HCC) 03/14/2021 Hypertension with CKD Past Surgical History: Procedure Laterality Date BACK SURGERY CARPAL TUNNEL RELEASE CHOLECYSTECTOMY Allergies Allergen Reactions Chlorthalidone Hypotension (Reselect Reaction) Caused dizziness at 25mg. Jardiance [Empagliflozin] GI intolerance GI tolerance Lisinopril Other (see comments) Methocarbamol Other (see comments) [place] loopy, dizzy for 1.5 days. Cwctzhp-Epk-Cbz Reductase Inhibitors Other (see comments) Current Outpatient Medications Medication Sig Dispense Refill Basaglar KwikPen U-100 Insulin 100 unit/mL (3 mL) injection Inject 60 Units under the skin at bedtime. 60 mL 3 blood sugar diagnostic (glucose blood) strips Use to test blood glucose twice daily 200 each 3 blood-glucose meter kit Dispense meter, test strips, lancets covered by pt ins. E11.65 IDDM type II, uncontrolled - Test 4 times/day. Reason: High A1C candesartan (ATACAND) 8 mg tablet Take 1 tablet by mouth once daily (Patient not taking: Reported on 03/30/2023) 90 tablet 0 clopidogreL (PLAVIX) 75 mg tablet Take 75 mg by mouth daily. flash glucose scanning reader (FreeStyle Carmina 2 [place]) misc 1 application daily. 1 each 0 FreeStyle Carmina 2 Sensor kit CHANGE EVERY 14 DAY 6 each 3 gabapentin (NEURONTIN) 300 mg capsule Take 300 mg by mouth as needed. insulin aspart U-100 (NovoLOG FlexPen) 100 unit/mL (3 mL) injection Inject 20 Units under the skin 3 (three) times a day. metFORMIN (FORTAMET) 500 mg 24 hr tablet Take 1 tablet (500 mg total) by mouth 2 (two) times a day with meals. (Patient taking differently: Take 500 mg by mouth daily with breakfast.) 180 tablet 11 oxyCODONE (OXY-IR) 5 mg immediate release capsule Take 5 mg by mouth as needed. Ozempic 1 mg/dose (4 mg/3 mL) injection INJECT 1 MG SUBCUTANEOUSLY ONCE A WEEK pen needle, diabetic 31 gauge x 5/16 needle 4 Injection daily. Use to inject 4 times daily as directed. 300 each 3 tamsulosin (FLOMAX) 0.4 mg 24 hr capsule Take 0.4 mg by mouth daily. verapamiL (CALAN-SR) 120 mg ER tablet Take 1 tablet (120 mg total) by mouth at bedtime. 30 tablet 1 No current facility-administered medications for this visit. Social History Socioeconomic History Marital status: Spouse name: Not on file Number of children: Not on file Years of education: Not on file Highest education level: Not on file Occupational History Not on file Tobacco Use Smoking status: Former Packs/day: 1.5 Types: Cigarettes Quit date: 2017 Years since quittin.2 Smokeless tobacco: Never Vaping Use Vaping Use: never used Substance and Sexual Activity Alcohol use: Yes Alcohol/week: 1.0 standard drink of alcohol Types: 1 Cans of beer per week Comment: Occ. Drug use: Never Sexual activity: Not Currently Partners: Female Other Topics Concern Not on file Social History Narrative Not on file Social Determinants of Health Food Insecurity: Not on file Transportation Needs: Not on file Physical Activity: Not on file Intimate Partner Violence: Not on file Housing Stability: Not on file Family History Problem Relation Age of Onset Diabetes mellitus type II Mother Stroke Father Hypertension Father Diabetes mellitus type II Brother Diabetes type II Brother There were no vitals filed for this visit. There is no height or weight on file to calculate BMI. PHYSICAL EXAM GENERAL: Patient is alert, oriented, and in no acute distress. Respirations are quiet and unlabored. Vocal quality is normal. HEAD: Normocephalic and atraumatic. Skin on head and neck normal. EARS: External ears normal bilaterally. External ear canals normal bilaterally. Binocular chad microscopic exam reveals normal ear canal bilaterally. Right tympanic membrane is normal with clear middle ear space. Left ear reveals a patent PE tube with clear middle ear space. New line cranial nerves are intact. No spontaneous nystagmus. Gait appears unstable. ASSESSMENT / PLAN #1 Dizziness #2 Imbalance Non Orthopedic #3 Eustachian Tube Disorder Bilateral Long discussion with patient. We discussed difficulty of this problem. We discussed Eustachian tubedysfunction. Discussed paradoxical plugging secondary PE tube. I am not sure if he is imbalance anddizziness is due to his ears or his previous CVA. I have no other further answers or recommendations. Initially he was referred to subspecialty Otology, [facility] however he was scheduled to seeme general ENT. If we are unable to obtain [place] appointment discussed option of the neurology consultation. I think he needs tertiary, probable multi specialty evaluation. If unable to get him in to [place], discussed option of [facility]. Referral order for [place] was placed. He will follow-up with Dr. Sunil Silveira as needed. Олег Gracia M.D. 12/29/2023 3:35 PM CDT documented in this encounter Plan of Treatment Upcoming Encounters Date Type Department Care Team (Latest Contact Info) Description 04/04/2024 10:45 AM CDT Diagnostic Department of Otorhinolaryngology in [place], [place] [address] [place] [address] Олег Gracia M.D. [address] [phone] Jo Mota Au.D., M.A. [address] [place] [phone] 04/04/2024 1:00 PM CDT Diagnostic Department of Otorhinolaryngology in [place], [place] [address] [place] [phone] Олег Gracia M.D. [address] [phone] Glen Graham Au.D. [address] [place] [phone] 05/01/2024 12:15 PM CDT Office Visit Department of Neurology in [address] [phone] Yunier Galloway M.D., M.P.H. [address] [place] [phone] Discharge Disposition: Home or Self Care Scheduled Referrals Name Type Priority Associated Diagnoses Order Schedule Otorhinolaryngology - Otology and neurotology consult (clinic) Outpatient Referral Routine Dizziness Imbalance Non Orthopedic Eustachian Tube Disorder Bilateral Expected: 12/22/2023, Expires: 03/22/2025 documented as of this encounter Visit Diagnoses Diagnosis Dizziness- Primary Imbalance Non Orthopedic Eustachian Tube Disorder Bilateral documented in this encounter Care Teams Dermatology Physician Relationship Specialty Start Date End Date Elsewhere, Pcp PCP - General Internal Medicine 03/10/22 documented as of this encounter
--- OUTSIDE RECORDS SUMMARY | 2024-03-20 12:32 | XMS_ITS | Encounter Summary ---
Author Organization [facility] Address [address] [place] [id number] Care Team Providers Care Order Make Up Clerk Name Role Phone Elsewhere, Pcp Primary Care Provider Unavailabl e Reason for Visit * Reason Comments Earache L ear Encounter Details Date Type Department Care Team (Late st Contact Info) Description 01/04/2024 1:10 PM CDT - 01/04/2024 5:[address] [facility] Emergency Department [address] [place] [phone] Uday Quan APRN, C.N.P., D.N.P. [address] [place] [phone] Otitis Externa Acute Left (Primary Dx); Otitis Media Unspecified Left Ear Discharge Disposition: Home or Self Care Social History Tobacco Use Types Packs/Day Years [...] on file documented as of this encounter Last Filed Vital Signs Vital Sign Reading [...] 7.6 oz) 01/04/2024 1:12 PM CDT Height - - Body Mass Index 33.64 03/30/2023 8:53 AM CDT documented in this encounter Discharge Instructions * Discharge Instructions* Koko Lee P.A.-C. - 01/04/2024 5:24 PM CDT Follow up with the ENT as planned, they can exchange your ear wick during this visit Take antibiotic as directed. Consider use of live culture yogurt or rqwy-qqw-mquqggz probiotic, candiscuss with local pharmacist about their recommendations. Also take the antibiotic with food in your stomach. Ear drops as prescribed Given sinus type symptoms as well as positive response to anti history of enlarging medication, we will plan to start the patient on a nasal hygiene regimen Nasal saline irrigations b.i.d. Flonase daily for the next week, b.i.d. for the week thereafter Afrin b.i.d. for the next 3 days You were examined and treated today in the Emergency Department (ED) on an emergency basis. This visit is not a substitute for comprehensive and ongoing medical care. In most cases, you must let yourprimary physician evaluate you again. Call your doctor today to advise them of your ED visit and arrange for out patient follow up. Tell your doctor about any new or lasting problems. After you leavethe ED today, please follow the instructions provided to you. Return to the Emergency Department for new, worsening, or persistent symptoms. * Attachments The following attachments cannot be sent through Care Everywhere. * Otitis Media Adult Fjqb-to-Mcrx (Czech) * Otitis Externa Zvqj-zo-Awtc (Czech) documented in this encounter Medications at Time of Discharge Medication Sig Dispensed Refills Start Date End Date Ian Rice U-100 Insulin 100 unit/mL (3 mL) injectionIndications: Diabetes Mellitus Type 2 With Diabetic Nephropathy Hyperglycemic (HCC),Assisted Use Of Insulin Active (HCC) Inject 60 Units under the skin at bedtime. 60 mL 3 01/30/2022 blood sugar diagnostic (glucose blood) strips Use to test blood glucose twice daily 200 each 3 02/20/2021 blood-glucose meter kit Dispense meter, test strips, lancets covered by pt ins. E11.65 IDDM type II, uncontrolled - Test 4 times/day. Reason: High A1C 10/30/2020 candesartan (ATACAND) 8 mg tablet Take 1 tablet by mouth once daily 90 tablet 12/28/2022 clopidogreL (PLAVIX) 75 mg tablet Take 75 mg by mouth daily. 08/31/2022 flash glucose scanning reader (AcronisStyle Carmina 2 Reagan) miscIndications:Diabe sri Mellitus Type 2 With Diabetic Nephropathy (HCC) 1 application daily. 1 each 05/21/2021 FreeStyle Carmina 2 Sensor kitIndications:Diabet es Mellitus Type 2 With Diabetic Nephropathy (HCC) CHANGE EVERY 14 DAY 6 each 3 10/28/2021 gabapentin (NEURONTIN) 300 mg capsule Take 300 mg by mouth as needed. insulin aspart U-100 (NovoLOG FlexPen) 100 unit/mL (3 mL) injection Inject 20 Units under the skin 3 (three) times a day. 10/29/2020 metFORMIN (FORTAMET) 500 mg 24 hr tablet Take 1 tablet (500 mg total) by mouth 2 (two) times a day with meals. 180 tablet 11 01/30/2022 oxyCODONE (OXY-IR) 5 mg immediate release capsule Take 5 mg by mouth as needed. 07/21/2022 Ozempic 1 mg/dose (4 mg/3 mL) injection INJECT 1 MG SUBCUTANEOUSLY ONCE A WEEK 10/20/2022 pen needle, diabetic 31 gauge x 5/16 needle 4 Injection daily. Use to inject 4 times daily as directed. 300 each 3 12/23/2021 tamsulosin (FLOMAX) 0.4 mg 24 hr capsule Take 0.4 mg by mouth daily. 12/17/2022 verapamiL (CALAN-SR) 120 mg ER tablet Take 1 tablet (120 mg total) by mouth at bedtime. 30 tablet 1 01/07/2023 clotrimazole (FUNGI CURE) 1 % external solution Apply to left ear 4-5 drops BID for 10 days. 30 mL 01/06/2024 01/16/2024 levoFLOXacin (LEVAQUIN) 750 mg tablet Take 1 tablet (750 mg total) by mouth every morning before breakfast for 10 days. 10 tablet 01/04/2024 01/14/2024 ofloxacin (FLOXIN) 0.3 % otic solution Administer 5 drops into the left ear 2 (two) times a day for 7 days. 10 mL 01/04/2024 01/11/2024 documented as of this encounter Consult Notes * Richardson French M.D., Ph.D. - 01/04/2024 4:14 PM CDTAssociated Order(s): IP CONSULT TO OTORHINOLARYNGOLOGY Addendum In addition to my recommendations below, given the patient's likely otitis externa and potential otitis media after imaging results, would recommend the following in addition to those recs below: Start Levaquin for 10 days Ofloxacin drops, 4 drops in the left ear, 2 times a day, for 7 days Please send swab left in Room for: Aerobic culture Fungal culture Gram stain Fungal smear OTORHINOLARYNGOLOGY ED CONSULT Chief Complaint: L ear pain History of Present Illness: Reggie Jones is a 63 y.o. male with a past medical history significant for type 2 diabetes, diabetic nephropathy, supraventricular tachycardia, and proximal atrial fibrillation presenting to theemergency department with left- sided ear pain. Please see assessment plan for full history. Review of Systems: Constitutional: no fevers or weight loss Eyes: no recent changes in vision Mouth: no sore throat Cardiovascular: no lightheadedness Respiratory: no wheezing or stridor GI: no dysphagia, no nausea/vomiting Lymph: no swollen lymph nodes in the head and neck Skin: no new skin lesions Musculoskeletal: no neck pain, no shoulder weakness Neurological: no facial weakness or droopiness, no headache, no changes in voice Allergic/Immune: no new rashes, no congestion, no rhinorrhea Past Medical History: Past Medical History: Diagnosis Date Chronic Kidney Disease (CKD), Stage 3a Glomerular Filtration Rate (GFR) 45 To 59 ([facility]) 03/14/2021 Diabetes Mellitus 2 Ulcer Toe ([facility]) 10/07/2021 He has a wound on the first metatarsal since 02/07. He has been under the care of the airport engineer. Hewas told he needs an amputation. He had a recent negative MRI. Wound has included silvadene Then iodosorb. He stated nothing is working' He does have an appointment with vascular in [place] for venous/arterial competency. Doppler was used to ascertain pedal pulse. Tendon visualized. Diabetes Mellitus Type 2 With Diabetic Nephropathy ([facility]) 11/11/2016 Hypertension Essential Primary 03/14/2021 Hypertensive Chronic Kidney Disease (CKD) Stage 3a Glomerular Filtration Rate (GFR) 45 To 59 ([facility]) 03/14/2021 Hypertension with CKD Family History: Family History Problem Relation Name Age of Onset Diabetes mellitus type II Mother Stroke Father Hypertension Father Diabetes mellitus type II Brother Artie Diabetes type II Brother Gar Physical Exam: Vital Signs: Vitals: 01/04/24 1430 BP: Pulse: 94 Resp: Temp: SpO2: 97% General: Awake, alert, oriented, in no acute distress Head: Normocephalic, atraumatic Face: Symmetric. House-Brackmann 1/6 bilaterally. Symmetric sensation in the distribution of V1-V3 Eyes: Pupils are equal round and reactive to light bilaterally. Extraocular movements intact. No gross lateral gaze nystagmus. No conjunctival injection. Ears: Auricles unremarkable bilaterally. Otoscopy was performed on both ears. On the right side, the EAC appeared clear without signs of erythema or excoriation. There was moderate cerumen in the canal. The tympanic membrane was visualized and appeared intact and non-erythematous. It was not retracted. There was a good light reflex and the middle ear space appeared well-aerated. The mastoid area w as non-tender, non-erythematous, and nonfluctuant bilaterally. On the left side, there is significant narrowing of the canal with granulation tissue as well as white raised lesions throughout it was judiciously suctioned. A full view of the tympanic membrane could not be appreciated, nor can a tympanostomy tube be appreciated (recently placed) given the level of stenosis in the external auditory canal. Nose: Nares patent bilaterally. Nasal mucosa appears pink and moist. Anterior rhinoscopy revealed normal appearing inferior turbinates. No signs of excoriations or ulcerations on the anterior septum.No epistaxis. No purulent discharge. No obvious polyps visualized. Septum appeared midline. Mouth: Dentition appeared healthy. There was no trismus. Oral mucosa was pink and moist. No lesionsnoted anywhere on the buccal or labial mucosa, or on the floor of mouth, soft or hard palate, or oral tongue. Tongue is midline and mobile. Palate elevation is symmetric. Uvula is midline. Neck: Normal range of motion. Trachea is midline. No lymphadenopathy palpable in any of the neck levels on either side. Thyroid was normal in size and there were no palpable nodules. Neuro: Cranial nerves II-XII were grossly intact. The voice is strong without hoarseness or breathiness. Pulmonary: Non-labored breathing, no wheezing or stridor noted. Cardiac: Weaver, well-perfused extremities, no signs of cyanosis. Assessment/Plan: Patient Active Problem List Diagnosis Diabetes Mellitus Type 2 With Diabetic Nephropathy (HCC) Supraventricular Tachycardia, Unspecified (HCC) Hypertensive Chronic Kidney Disease (CKD) Stage 3a Glomerular Filtration Rate (GFR) 45 To 59 Diabetes Mellitus 2 Ulcer Toe (HCC) Body Mass Index 32.0 To 32.9 Adult Malabsorption Atrial Fibrillation Paroxysmal (HCC) Reggie Jones is a 63 y.o. male year old male with a past medical history significant for type 2 diabetes, diabetic nephropathy, supraventricular tachycardia, and proximal atrial fibrillation presenting to the emergency department with left-sided ear pain. Patient reports to me 4-5 months of left- sided ear pain as well as mild headaches and ocular pain without ocular pain with extraocular movements. He did see his local ear nose and throat doctor, who recently placed a tympanostomy tube in the left side, which provided some benefit in the short term given the patient's what was believed to be Eustachian tube dysfunction, however, over the past 2-3 days, the patient has had significant worsening of his left-sided ear pain. No ear drops were prescribed at that time. He does report that he has taken ofloxacin in the past with what he describes as ???filling of my eyes?? , when he places these in his left external auditory canal. The patient has excellent extraocular movement, anterior rhinoscopy is not revealing for purulent material suggestive of active sinus infection, but left-sided otoscopy is revealing for what appears to be granulation tissue and white lesions throughout the external auditory canal, given the level of stenosis in the external auditory canal full view of the tympanic membrane can not be appreciated, nor can I appreciate the tympanostomy tube recently placed by a local ear nose and throat doctor. Given these findings and the patient's strange presentation as it relates to his description of ocular manifestations and potential sinusitis type symptoms) he reports some facial pain and pressure over the left side over the past 4-5 months as well which is mildly responsive to antihistamines urgent medications)\ - we will plan to get some imaging with aCT temporal bone. Review of his most recent CT head with and without contrast on 11/18/2023 is unrevealing for mastoid opacification or signs or symptoms concerning for otitis externa on the left or right. Recommendations: CT Temporal bone Pending these results, either otitis externa treatment, otitis media treatment, or alternative pathology ENT likely to place an otowick for ototopicals given level of stenosis This can be removed by his PCP in 3-4 days Given sinus type symptoms as well as positive response to anti history of enlarging medication, we will plan to start the patient on a nasal hygiene regimen Nasal saline irrigations b.i.d. Flonase daily for the next week, b.i.d. for the week thereafter Afrin b.i.d. for the next 3 days Follow-up outpatient with neurology All questions from the patient and family were welcomed and answered to the best of my abilities. This case was discussed with Chief Resident senior national account manager, Dr. Cuate Rios. The primary service has been updated regarding the plan. Thank you for involving us in the care of this patient. Please do not hesitate [place] [phone] with any additional questions or concerns. Richardson French M.D., Ph.D. Otorhinolaryngology - Head & Neck Surgery ENT on-call pager number: [phone] documented in this encounter ED Notes * Koko Lee P.A.-C. - 01/04/2024 4:55 PM CDT Care of patient transferred to sc by Uday Castelan CNP. Disposition pending CT results, labs and ENT recommendations. VITAL SIGNS BP (!) 189/116 Pulse 91 Temp 36.7 ??C (Oral) Resp 18 Wt 112 kg SpO2 99% BMI 33.64 kg/m?? ED Course as of 01/04/241747e Jan 04, 2024 1654 Paged ENT, they will be down to place [place]. They request primary follow-up to remove this. They want Levaquin 750 mg for the next 10 days. They would like Ciprodex drops as well. Updated patient and family. They note that they have some concern about the Ciprodex drops being patient was getting eye irritation with these, noted that they should discuss this with ENT physician. 1747 ENT obtained Gram stain, fungal smear, fungal culture, aerobic culture. Follow up with the ENT on this coming . I encourage follow up with their primary care provider as indicated. I also encourage to return emergency department for worsening symptoms or any other concerns they feel requires further evaluation. This plan of discharge and follow-up included discussion of all test results in detail with opportunity to ask questions during discharge process. At this time there are no further questions regarding this plan and discussion. I will discharge them home in stable condition. Final Diagnoses: as of 01/04/241747 Otitis Externa Acute Left Otitis Media Unspecified Left Ear - concern for developing mastoiditis Koko eLe, P.A.-C. 01/04/241748 * Uday Quan APRN, C.N.P., D.N.P. - 01/04/2024 3:20 PM CDT SUBJECTIVE CHIEF COMPLAINT/REASON FOR VISIT Earache (L ear) HISTORY OF PRESENT ILLNESS 63-year-old male patient known with Patient Active Problem List: Diabetes Mellitus Type 2 With Diabetic Nephropathy (HCC) Supraventricular Tachycardia, Unspecified (HCC) Hypertensive Chronic Kidney Disease (CKD) Stage 3a Glomerular Filtration Rate (GFR) 45 To 59 Diabetes Mellitus 2 Ulcer Toe (HCC) Body Mass Index 32.0 To 32.9 Adult Malabsorption Atrial Fibrillation Paroxysmal (HCC) Presenting to the emergency department with worsening left ear pain and pressure. Patient reported that he had long history of left ear pain and discomfort with pressure around the ear the eyes and in his head. He reported that he was told he has eustachian tube dysfunction. He reported that a tubewas inserted in his left ear couple of weeks ago and he has been taking Claritin which has helped with his symptoms however over the past 2 days been having increasing pain in his left ear and increasing discharges that is yellow and thick in nature. No fever no chills no difficulty swallowing. No otorrhea. REVIEW OF SYSTEMS Constitutional: Negative for fever. HENT: Positive for ear discharge. Negative for voice change. Gastrointestinal: Negative for abdominal pain. Genitourinary: Negative for dysuria. Musculoskeletal: Negative for back pain. Neurological: Positive for headaches. Psychiatric/Behavioral: Negative for confusion. OBJECTIVE Initial Vitals Temperature 01/04/24 1313 36.7 ??C Pulse Rate 01/04/24 1313 96 Heart Rate -- Resp Rate 01/04/24 1313 18 Blood Pressure 01/04/24 1316 (!) 186/106 SpO2 01/04/24 1313 98 % Pain Score 01/04/24 1337 6 PHYSICAL EXAMINATION Constitutional: Nursing note and vitals reviewed. No distress. HENT: Head: No signs of injury. Left Ear: There is drainage and tenderness. No mastoid tenderness. A middle ear effusion is present. Decreased hearing is noted. Eyes: Pupils are equal, round, and reactive to light. Cardiovascular: No tachycardia present. Pulmonary/Chest: No tachypnea. Abdominal: exhibits no distension. Musculoskeletal: General: No edema. Cervical back: Normal range of motion. Neurological: Alert. Skin: Skin is warm. Psychiatric: He has a normal mood and affect. ASSESSMENT/PLAN Assessment and Plan 63-year-old male patient presenting to the emergency department with left ear pain and discharge. Mastoid is non swollen nontender. The canal itself appears to be mildly swollen I do not appreciate any significant erythema there is significant fluids and secretions and front of the tympanic membrane and was not able to evaluate it properly. Given his history and given that he was recently evaluated by ENT will proceed with an ENT consult in the ED will obtain basic labs. Concern for otitis externa, concern for perforated tympanic membrane, concern for tube dislodgement among others. He is otherwise well-appearing his blood pressure is on the upper side at 189/105 systolic he reported that his blood pressure runs high most of the time. I think the plan will be dependent on our ENT colleagues recommendations.. ED Course as of 01/04/24 1524 Tue Jan 04, 2024 1524 ENT recommended CBC BMP ESR CRP and CT of the temporal bones. Uday Quan APRN, C.N.P., D.N.P. 01/04/24 1524 * Lucy Campos R.N. - 01/04/2024 1:15 PM CDT Pt with complaints of left ear pain. Pt reports a L ear drain placed two weeks ago and worsening pain, difficulty hearing, and drainage coming from L ear. Pt reports It feels like the tube is being pushed in. The is worried it is infected Lucy Campos R.N. 01/04/24 1318 documented in this encounter Plan of Treatment Upcoming Encounters Date Type Department Care Team (Latest Contact Info) Description 04/04/2024 10:45 AM CDT Diagnostic Department of Otorhinolaryngology in [place], [place] [address] [place] [phone] Олег Gracia M.D. [address] [place] [address] Jo Mota Au.D., M.A. [address] [place] [phone] 04/04/2024 1:00 PM CDT Diagnostic Department of Otorhinolaryngology in [place], [place] [address] [place] [phone] Олег Gracia M.D. [address] [place] [phone] Glen Graham Au.D. [address] [place] [phone] 05/01/2024 12:15 PM CDT Office Visit Department of Neurology in [place], [place] [address] [place] [address] Yunier Galloway M.D., M.P.H. [address] [place] [address] Discharge Disposition: Home or Self Care documented as of this encounter Procedures Procedure Name Priority Date/Time Associated Diagnosis Comments BACTERIAL CULTURE, AEROBIC + SUSC Routine 01/04/2024 5:24 PM CDT FUNGAL SMEAR Routine 01/04/2024 5:24 PM CDT GRAM STAIN Routine 01/04/2024 5:24 PM CDT FUNGAL CULTURE, ROUTINE Routine 01/04/2024 5:24 PM CDT POTASSIUM, S/P STAT 01/04/2024 3:[address] TEMPORAL BONE WITHOUT IV CONTRAST RAD - Routine (most inpatients and all outpatients) 01/04/2024 3:41 PM CDT SEDIMENTATION RATE, B STAT 01/04/2024 2:30 PM CDT CBC WITH DIFFERENTIAL, B STAT 01/04/2024 2:30 PM CDT C-REACTIVE PROTEIN (CRP), S/P STAT 01/04/2024 2:30 PM CDT BASIC METABOLIC PANEL, S/P STAT 01/04/2024 2:30 PM CDT documented in this encounter Results * (ABNORMAL) Gram Stain (01/04/2024 5:24 PM CDT) Gram Stain GRAM POSITIVE COCCI Rare. (A) 01/04/2024 9:30 PM CDT DTL Swab (Ear, Left) 01/04/2024 5:24 PM CDT 01/04/2024 7:04 PM CDT Comment:Specimen Source Site : Swab Koko Lee P.A.-C. LAB MICROBIOLOGY - GENERAL ORDERABLES Performing Organization Address City/[facility]/ZIP Co de Phone Number [address] [place] [address] * (ABNORMAL) Fungal Smear (01/04/2024 5:24 PM CDT) Fungal Smear HYPHAE(A) 01/04/2024 10:21 PM CDT DTL Swab (Ear, Left) 01/04/2024 5:24 PM CDT 01/04/2024 7:04 PM CDT Comment:Specimen Source Site : Swab Koko Lee P.A.-C. LAB MICROBIOLOGY - GENERAL ORDERABLES Performing Organization Address City/[facility]/ZIP Co de Phone Number [facility] [address] [place] [address] * (ABNORMAL) Bacterial Culture, Aerobic + Susceptibility [...] MICROBIOLOGY - GENERAL ORDERABLES Performing Organization Address City/[facility] Co de Phone Number [facility] [address] [place] [address] * (ABNORMAL) Fungal Culture, Routine (01/04/2024 5:24 [...] MICROBIOLOGY - GENERAL ORDERABLES Performing Organization Address [facility] Co de Phone Number [facility] [address] [place] [address] * Potassium (01/04/2024 3:44 PM CDT) Potassium, P 4.8 3.6 - 5.2 mmol/L 01/04/2024 4:15 PM CDT STMA Blood 01/04/2024 3:44 PM CDT 01/04/2024 3:52 PM CDT Uday Quan APRN, C.N.P., D.N.P. L AB BLOOD ADD-ON Performing Organization Address City/[facility]/ZIP Co de Phone Number [facility] 200 [place] [address], [facility] [address] [place] [address] * CT Temporal Bone without IV Contrast [...] Dehiscence of the left superior semicircular canal. [facility] Quan APRN, C.N.P., D.N.P. I MG CT PROCEDURES * CRP (C-Reactive Protein) (01/04/2024 2:30 PM CDT) Pathologist [facility] C-Reactive Protein (CRP), S 3.9 <5.0 mg/L 01/04/2024 3:25 PM CDT DTL Blood (Blood, Venous) 01/04/2024 2:30 PM CDT 01/04/2024 3:08 PM CDT [facility] Kadeem CENTENO, C.N.P., D.N.P. L AB BLOOD ADD-ON [facility] [address] [place] [address], [facility] [address] [place] [address] * (ABNORMAL) Sedimentation Rate (01/04/2024 2:30 PM CDT) Pathologist [facility] Sedimentation Rate, B 28(H) 2 - 20 mm/h 01/04/2024 3:42 PM CDT DT Blood (Blood, Venous) 01/04/2024 2:30 PM CDT 01/04/2024 2:45 PM CDT Katie Cote APRNN.PJeff, D.N.P. L AB BLOOD ADD-ON [facility] [address] [place] [address], [facility] [address] [place] [address] * CBC with Differential, Blood (01/04/2024 2:30 PM CDT) Hemoglobin 14.9 13.2 - 16.6 g/dL 01/04/2024 [...] PM CDT 01/04/2024 2:38 PM CDT Uday Kadeem CENTENO C.N.P., D.N.P. L AB BLOOD ADD-ON [facility] [address] [place] [address], [facility] STMA [facility] [address] [place] [address] DHPM [facility] [address] [place] [address] * (ABNORMAL) Basic Metabolic Panel (01/04/2024 2:30 PM CDT) Potassium, P CANCELED mmol/L 01/04/2024 2:55 PM [...] CDT 01/04/2024 2:38 PM CDT Imtithana Quan APRN C.N.P., D.N.P. L AB BLOOD ADD-ON [facility] [address] [place] [address], [facility] [place] [facility] [address] [place] [address] documented in this encounter Visit Diagnoses Diagnosis Otitis Externa Acute Left- Primary Otitis Media Unspecified Left Ear documented in this encounter Care Teams Order Make Up Clerk Relationship Specialty Start Date End Date Elsewhere, Pcp PCP - General Internal Medicine 03/10/22 documented as of this encounter
== END 2024-03-20 12:24 | disposition home or self-care (01) ==
PROVIDERS: PCP Family Medicine; Visit Provider Family Medicine
DX: E78.5 Hyperlipidemia, unspecified (principal); I10 Essential (primary) hypertension
CPT/HCPCS: 80048; 80061; 84460

== ENCOUNTER 2024-03-31 10:20 | Inpatient (IN) | payer MEDICARE, BC, SELFPAY ==
[2024-03-31 10:35] VITALS: BP 199/94; PULSE 78; RESP 18; TEMP 36.3; O2SAT 97; BMI 34.4
--- NOTE | 2024-03-31 10:55 | ED.GENADULT ---
HPI - General Adult General Date Seen: 03/31/24 Chief complaint: Dizziness/Vertigo Stated complaint: post surgical - vomiting, nausea Time Seen by Provider: 03/31/24 10:55 History of Present Illness HPI narrative: 64-year-old male with a history of type 2 diabetes, diabetic neuropathy, hypertension, hypertensive chronic kidney disease, paroxysmal AFib, cardiovascular disease, peripheral artery disease, BPH, He saw ENT on 03/15 and was diagnosed with left otitis externa due to otorrhea on the left. Treated with Ciprodex drops. Also sinus infection-treated with Augmentin 875/125 b.i.d.. Fluticasone nasal spray. He had a follow-up visit with ENT on 03/21. He had ongoing left ear otorrhea-ENT saw granulation tissue around the ear to. Tube removal is recommended. Patient wanted to wait a week for tube removal so patient had another visit on 03/29. Tube was removed on 03/29. He was started on steroid (Kenalog drops for the left ear to use 2 drops daily for 7 days. He was to see [facility] [place] in 2 days (today) Related Data Home Medications ?Medication ?Instructions ?Recorded ?Confirmed aspirin 81 mg tablet,delayed 81 mg PO QDAY 04/19/23 03/29/24 release clotrimazole 1 % topical solution topical 01/14/24 03/29/24 ciprofloxacin 0.3 %-dexamethasone 6 drp otic (ear) QID PRN 01/17/24 03/29/24 0.1 % ear drops,suspension cetirizine 10 mg tablet 10 mg PO QDAY 03/13/24 03/29/24 Previous Rx's ?Medication ?Instructions ?Recorded flash glucose sensor (FreeStyle #6 ea 06/15/23 Carmina 2 Sensor kit) flash glucose scanning reader #1 ea 10/18/23 (FreeStyle Carmina 2 [place]) pen needle, diabetic 31 gauge x #300 ea 03/03/2402/02 (BD Ultra-Fine Short Pen Needle) insulin aspart U-100 100 unit/mL 20 unit (0.2 mL) subcut TID #30 mL 03/14/24 (3 mL) subcutaneous pen (Novolog FlexPen U-100 Insulin aspart) blood sugar diagnostic ([email or web address].comTouch #200 ea 03/15/24 Ultra Test strips) fluticasone propionate 50 2 spray intranasal QDAY 30 days 03/15/24 mcg/actuation nasal #16 grams spray,suspension Ian Rice U-100 Insulin 100 55 unit (0.55 mL) subcut QPM #45 mL 03/20/24 unit/mL (3 mL) subcutaneous (insulin glargine) candesartan 8 mg tablet 8 mg PO DAILY #90 tabs 03/20/24 hydroxyzine pamoate 25 mg capsule 25 - 50 mg (1 - 2 x 25 mg) PO TID 03/20/24 #90 caps ezetimibe 10 mg tablet (Zetia) 10 mg PO QDAY #30 tabs 03/21/24 semaglutide 1 mg/dose (4 mg/3 mL) 1 mg (0.75 mL) subcut QWEEK #3 mL 03/21/24 subcutaneous pen injector triamcinolone acetonide 0.1 % See Rx Instructions .Route 03/29/24 lotion .COMPLEX #60 mL Allergies Allergy/AdvReac Type Severity Reaction Status Date / Time candesartan Allergy Mild dizzy Verified 03/29/24 10:23 Cephalosporins Allergy Unknown Verified 03/29/24 10:23 chlorthalidone Allergy Unknown Unknown Verified 03/29/24 10:23 clotrimazole Allergy Unknown Verified 03/29/24 10:23 lisinopril Allergy Unknown Verified 03/29/24 10:23 methocarbamol Allergy Unknown Unknown Verified 03/29/24 10:23 [id number] Reductase Allergy Verified 03/29/24 10:23 Inhibitor PFSH PFS Medical History (Updated 03/31/24 @ 15:29 by Too Andujar MD) Mixed hyperlipidemia ?E78.2 - Mixed hyperlipidemia (ICD-10) Type 2 diabetes mellitus, with long-term current use of insulin ?E11.9 - Type 2 diabetes mellitus without complications (ICD-10) ?Z79.4 - correction (current) use of insulin (ICD-10) Primary hypertension ?I10 - Essential (primary) hypertension (ICD-10) Lightheadedness ?R42 - Dizziness and giddiness (ICD-10) BPH (benign prostatic hyperplasia) ?N40.0 - Benign prostatic hyperplasia without lower urinary tract symptoms (ICD-10) Cardiovascular disease ?I25.10 - Atherosclerotic heart disease of [place] coronary artery without angina pectoris (ICD-10) Peripheral vascular disease ?I73.9 - Peripheral vascular disease, unspecified (ICD-10) Peripheral neuropathy ?G62.9 - Polyneuropathy, unspecified (ICD-10) Hypertensive kidney disease, stage III ?I12.9 - Hypertensive chronic kidney disease with stage 1 through stage 4 chronic kidney disease, or unspecified chronic kidney disease (ICD-10) ?N18.30 - Chronic kidney disease, stage 3 unspecified (ICD-10) Paroxysmal atrial fibrillation ?I48.0 - Paroxysmal atrial fibrillation (ICD-10) Health care directive on file ?Z78.9 - Other specified health status (ICD-10) CVA (cerebral vascular accident) ?I63.9 - Cerebral infarction, unspecified (ICD-10) Non-pressure chronic ulcer of other part of right foot with fat layer exposed ?L97.512 - Non-pressure chronic ulcer of other part of right foot with fat layer exposed (ICD-10) Diabetic nephropathy associated with type 2 diabetes mellitus (11/11/16) ?E11.21 - Type 2 diabetes mellitus with diabetic nephropathy (ICD-10) Degeneration of intervertebral disc of lumbar region (08/25/18) ?M51.36 - Other intervertebral disc degeneration, lumbar region (ICD-10) Surgical History (Updated 11/20/22 @ 05:38 by Joss Manning MD) Hx of appendectomy ?Z90.49 - Acquired absence of other specified parts of digestive tract (ICD-10) History of amputation of toe ?Z89.429 - Acquired absence of other toe(s), unspecified side (ICD-10) Carpal tunnel syndrome of right wrist ?G56.01 - Carpal tunnel syndrome, right upper limb (ICD-10) Family History (Updated 09/09/22 @ 08:42 by Linda Sandoval) Father Stroke High blood pressure Parkinson disease Mother Type 2 diabetes mellitus History of adrenal cancer Brother Type 2 diabetes mellitus Social History (Updated 08/16/23 @ 08:57 by Carey Malik ~ [facility], [facility]) Narrative: , 2 kids, nonsmoker, no alcohol What is your current living situation?: declined to answer Problems where you live: declined to answer In the past 12 months, utilities in danger of being shut off: declined to answer In past 12 months, lack of transportation kept you from medical appts, meetings, work, or getting things needed for daily living: declined to answer In the past 12 mos, have been you worried that your food would run out before you had money to buy more?: declined to answer In the past 12 mos, the food you bought just didn't last and you didn't have money to buy more?: declined to answer Smoking Status: Former smoker Do you use any of these nicotine containing products: None How often do you have a drink containing alcohol: monthly or less Alcohol type: beer How many standard drinks containing alcohol do you have on a typical day: 1 or 2 How often do you have six or more drinks on one occasion: Never AUDIT-C Alcohol total score: 1 Non-prescribed substance use: denies use Caffeine: Yes (COFFEE DAILY 1 POT) How often does anyone, including family, friends and others, physically hurt you: decline to answer How often does anyone, including family, friends and others, insult or talk down to you: decline to answer How often does anyone, including family, friends and others, threaten you with harm: decline to answer How often does anyone, including family, friends and others, scream or curse at you: decline to answer Little interest or pleasure in doing things: nearly every day Feeling down, depressed, or hopeless: not at all Exam Const: Vital Signs, click to edit/add: Vital Signs - 24 hr 03/31/24 10:35 03/31/24 14:02 Temperature 97.3 F L Pulse Rate [Pulse Oximeter] 78 79 Respiratory Rate 18 20 Blood Pressure [Ri ght Upper Arm] 199/94 H 200/102 H Pulse Oximetry 97 98 Oxygen Delivery Me thod Room Air Room Air Course Course ED Course: Discussed with his ENT surgeon, Dr. Mead. We discussed that he has no worsening severe vertigo that started yesterday after he started the steroid drops. He also has significant whitish discharge in his left ear canal. ENT requested we get CT imaging. MRI would be best but is not possible because of the patient's marked claustrophobia. We will do CT head and CT temporal bones to evaluate for possible mastoiditis or other complication. We will also do labs with CBC and sed rate. Recheck-nurses were only able able to get a small 24 gauge IV in the patient's right thumb through this we were able to administer Zofran and Valium. We also administered oral meclizine. Vital Signs Vital signs: Initial Vital Signs Temperature 97.3 F L 03/31/24 10:35 Temperature Source Temporal Artery Scan 03/31/24 10:35 Pulse Rate 78 03/31/24 10:35 Respiratory Rate 18 03/31/24 10:35 Blood Pressure 199/94 H 03/31/24 10:35 Blood Pressure Mean 129 H 03/31/24 10:35 Blood Pressure Position Sitting 03/31/24 10:35 Pulse Oximetry 97 03/31/24 10:35 Oxygen Delivery Method Room Air 03/31/24 10:35 Vital Signs Temperature 97.3 F L 03/31/24 10:35 Pulse Rate 78 03/31/24 10:35 Respiratory Rate 18 03/31/24 10:35 Blood Pressure 199/94 H 03/31/24 10:35 Pulse Oximetry 97 03/31/24 10:35 Oxygen Delivery Method Room Air 03/31/24 10:35 Temperature 97.3 F L 03/31/24 10:35 Pulse Rate 79 03/31/24 14:02 Respiratory Rate 20 03/31/24 14:02 Blood Pressure 200/102 H 03/31/24 14:02 Pulse Oximetry 98 03/31/24 14:02 Oxygen Delivery Method Room Air 03/31/24 14:02 Medications Administered Medications: Discontinued Medications Generic Name Dose Route Start Last Admin Trade Name Freq PRN Reason Stop Dose Admin Diazepam 10 mg 03/31/24 13:38 03/31/24 15:01 Diazepam 5 Mg/Ml Inj IV 03/31/24 13:39 Not Given ONCE ONE Sodium Chloride 1,000 mls @ 1,000 mls/hr 03/31/24 12:00 03/31/24 15:04 0.9 % Sodium Chloride 1000 Ml IV 03/31/24 12:59 Infused .Q1H JUSTO Infusion Meclizine HCl 25 mg 03/31/24 11:50 03/31/24 12:38 Meclizine Hcl 25 Mg Tablet PO 03/31/24 11:51 25 mg ONCE ONE Administration Ondansetron HCl 4 mg 03/31/24 11:50 03/31/24 12:12 Ondansetron 2 Mg/Ml Inj IVP 03/31/24 11:51 4 mg ONCE ONE Administration Ondansetron HCl 4 mg 03/31/24 14:50 07/12/24 15:01 Ondansetron 2 Mg/Ml Inj IVP 03/31/24 14:51 4 mg ONCE ONE Administration Medical Decision Making MDM Narrative Medical decision making narrative: 63-year-old gentleman with a complex presentation to the ER. He has been having ongoing trouble with infections and drainage from his left ear canal. He has been on Ciprodex drops for the past couple of weeks (but only using them once a day or sporadically and not exactly as directed), and is also on oral Augmentin for possible sinus infection since March 20, about 10 days ago. He had his left ear tube removed 2 days ago by ENT and has had ongoing drainage since then. He was put on otic steroid drops with suspicion that he probably had a allergic phenomena in his left ear. Since starting the drops yesterday he has had onset of severe vertigo triggered by movement and better if he holds very still. Although we suspect that the vertigo is probably due to his ear infection or a side effect of the steroid drops. Differential is broad including central causes of vertigo. At this point on my exam I see a horizontal nystagmus but no vertical nystagmus no evidence for other brainstem lesions or other focal deficits. MRI would be most sensitive to look for an acute cerebellar infarct, however that is not possible due to the patient's severe anxiety. Although it is much less sensitive, we did were at least able to do a noncontrast brain CT which is normal. No evidence for any obvious hemorrhage, or infarct on the CT scan . CT scan does show evidence for fluid in left mastoid air cells and left middle ear suspicious for an ongoing left otitis media. CT temporal bones except confirms fluid in the left middle ear cavity would and debris in the external auditory canal and opacification of left mastoid air cells. Discussed with ENT, Dr. Mead. At this point with the patient's ongoing symptoms, he pain and he will require hospitalization for supportive care. Will also start on antibiotics. Is discussion with pharmacist will start him on Zosyn to cover for possible Pseudomonas which may have not been covered by his recent Augmentin. Will also obtain cultures of the debris from his left ear canal. MRSA culture from his left nares. Discussed with our hospitalist, Dr. Montoya who graciously agrees to admit. With the patient's nausea and vomiting he has also developed hyperglycemia. Labs confirm a sugar of 413 which correlates with his CGM. Fortunately venous pH and anion gap are normal. No evidence for DKA a. He received IV fluids here in the ER. He had already taken an extra dose of his long acting insulin at home. White blood cell count is 6.8-normal. However ESR is elevated at 28. The patient also has significant underlying anxiety. He is very nervous about all of a interventions, requires sedation just have a CT scan. He is very anxious about being in the hospital but ultimately agrees to stay. He is self medicating himself with his prescription hydroxyzine from home. He took a dose of his home hydroxy here in the ER and is starting to feel little bit better. He is refusing Valium for now. Lab Data Labs: Lab Results 03/31/24 03/31/24 Range/Units 12:00 12:22 WBC 6.78 (4.50-11.00) K/uL RBC 3.51 L (4.30-5.90) m/uL Hgb 11.1 L (13.5-17.5) gm/dL Hct 32.7 L (37.0-53.0) % MCV 93 (80-100) fL MCH 32 (26-34) pg MCHC 34 (32-36) gm/dL RDW Coeff of Isac 13.0 (11.5-15.5) % Plt Count 155 (140-440) K/uL Neut % (Auto) 88.4 H (42.0-72.0) % Lymph % (Auto) 7.5 L (20-44) % [place] % (Auto) 3.4 (0.0-11.0) % Eos % (Auto) 0.3 (0.0-7.0) % Baso % (Auto) 0.1 (0.0-3.0) % Neut # (Auto) 6.00 (1.7-7.0) K/uL Lymph # (Auto) 0.50 L (0.90-2.90) K/uL [place] # (Auto) 0.20 (0.00-0.90) K/UL Eos # (Auto) 0.02 (0.00-0.50) K/uL Baso # (Auto) 0.01 (0.00-0.30) K/uL Abs Immat Gran (auto) 0.02 (0.00-0.30) K/uL Imm/Tot Granulo (auto) 0.3 % ESR 28 H (2-15) mm/hr VBG pH 7.326 (7.32-7.43) VBG pCO2 45 (40-50) mmHG VBG pO2 < 30.1 (25-47) mmHG VBG HCO3 24 (21-28) mmol/L Sodium 140 (135-149) mmol/L Potassium 5.1 (3.6-5.1) mmol/L Chloride 105 (96-114) mmol/L Carbon Dioxide 21 (20-32) mmol/L Anion Gap 14 (7-15) mEq/L BUN 30 (7-30) mg/dL Creatinine 1.7 H (0.5-1.5) mg/dL Estimated Creat Clear 48.60 Estimated GFR 45 ml/min Glucose 413 H* (60-115) mg/dL Calcium 9.7 (8.4-10.6) mg/dL Imaging Data CT scan - head: Attestation: I have reviewed the pertinent imaging results. Radiologist's impression: IMPRESSION: 1. No intracranial bleed or mass effect. 2. Fluid within the left middle ear and mastoid air cells which can be seen in otitis media. 3. Mild nonspecific white matter disease, likely microangiopathy. CT temporal bones: Attestation: I have reviewed the pertinent imaging results. Radiologist's impression: prelim report 2:21 Near-complete opacification of the left middle ear cavity is new/increased along with circumferential thickening and heterogeneous foci about the external auditory canal. Opacification of the left mastoid air cells has increased, without evidence of coalescent mastoiditis. Findings are likely infectious/inflammatory in nature. Thinning and dehiscence of the osseous left superior semi circular canal is similar. Discharge Plan Discharge Clinical Impression: Vertigo, Acute left otitis media, Acute hyperglycemia, Anxiety Prescriptions: No Action aspirin 81 mg tablet,delayed release (DR/EC) 81 mg PO QDAY clotrimazole 1 % solution topical ciprofloxacin-dexamethasone 0.3-0.1 % drops,suspension 6 drp otic (ear) QID PRN fluticasone propionate 50 mcg/actuation spray,suspension 2 spray intranasal QDAY 30 Days Qty: 16 11RF Rx Instructions: administer into each nostril triamcinolone acetonide 0.1 % lotion See Rx Instructions .ROUTE .COMPLEX Qty: 60 0RF Rx Instructions: 2 drops to left ear daily for 7 days; candesartan 8 mg tablet 8 mg PO DAILY Qty: 90 1RF hydroxyzine pamoate 25 mg capsule 25 - 50 mg PO TID Qty: 90 5RF insulin glargine [Basaglar KwikPen U-100 Insulin] 100 unit/mL (3 mL) insulin pen 55 unit subcut QPM Qty: 45 3RF semaglutide 1 mg/dose (4 mg/3 mL) pen injector 1 mg subcut QWEEK Qty: 3 3RF cetirizine 10 mg tablet 10 mg PO QDAY (DME) FreeStyle Carmina 2 Sensor Kit See Rx Instructions .ROUTE .MEDSUPPLY Qty: 6 3RF Rx Instructions: As directed (DME) FreeStyle Carmina 2 [place]eca Misc See Rx Instructions .Route Qty: 1 0RF Rx Instructions: As directed (DME) pen needle, diabetic [BD Ultra-Fine Short Pen Needle] 31 gauge x 5/16 needle See Rx Instructions .ROUTE .COMPLEX Qty: 300 0RF Dose Instruction: USE 1 4 TIMES DAILY Rx Instructions: USE 1 4 TIMES DAILY insulin aspart U-100 [Novolog FlexPen U-100 Insulin] 100 unit/mL (3 mL) insulin pen 20 unit subcut TID Qty: 30 2RF (DME) OneTouch Ultra Test Strip See Rx Instructions .Route Qty: 200 2RF Rx Instructions: As directed, tests BID ezetimibe [Zetia] 10 mg tablet 10 mg PO QDAY Qty: 30 5RF Follow Up/Referrals: Joss Manning MD [Primary Care Provider] -
--- OUTSIDE RECORDS SUMMARY | 2024-03-31 11:38 | XMS_ITS | Clinical Summary ---
Author Organization [facility] Address [address] [place] [address] Care Team Providers Care Lead Janitor Name Role Phone Elsewhere, Pcp Primary Care Provider Unavailabl e Source Comments Patient records contain information from all sites at [facility]. For routine questions regarding patient records, call [phone] during business hours, M-F 8:00 AM - 5:00 PM Central Time. Record requests for emergency care only can be directed to [phone] at any time.[facility] Allergies Active Allergy Reactions Criticality Noted Date Comments Chlorthalidone Hypotension (Reselect Reaction) 01/29/2022 Caused dizziness at 25mg. Empagliflozin GI intolerance 02/09/2022 GI tolerance Lisinopril Other (see comments) 04/15/2017 Methocarbamol Other (see comments) 07/23/2020 [place] loopy, dizzy for 1.5 days. Smuzrgi-Ptr-Qle Reductase Inhibitors Other (see comments) 08/19/2014 Medications [...] flash glucose scanning reader (FreeStyle Carmina 2 [place]) miscIndications:Kym betes Mellitus Type 2 With Diabetic [...] Information Patient taking differently:500 mg oralDaily with morning meal, Reported on 11/20/2022 Basaglar KwikPen U-100 Insulin 100 unit/mL (3 mL) injectionIndication s:Diabetes Mellitus Type 2 With Diabetic Nephropathy Hyperglycemic (HCC),Phone Engineer Use Of Insulin Active (HCC) Inject 60 [...] was recommended. 02/05/22 He initiated care with [facility] center. Last Assessment & Plan: He states [...] these medications. I suggested he go to [facility] emergency department for his overall constitutional symptoms. I feel he would need Ortho ID and would benefit from hospitalization to workup his multiple chronic medical problems. He is refusing to go. He states he needs to fix his planter. I felt that he needs to be seen in a wound center. He would prefer to not go to [facility]. I did put a referral in for him to go to the [facility] wound clinic in [place]. He will call to make an appointment. The benefit of a center such as [place] is the accessibility of hyperbaric therapy, if [...] 01/19/2024 Clinical Communication Department of Otorhinolaryngology in [place], [place] [address] [place] [address] Олег Gracia M.D. Order Request; Pre-visit Intake 01/12/2024 Clinical Communication Department of Otorhinolaryngology in [place], [place] [address] [place] [address] Vinicius Rios M.D. 01/05/2024 Clinical Communication [facility] Emergency [facility] [place] [phone] Nory Andujar M.S.N., R.N. Follow-up 01/04/2024 1:10 PM CDT - 01/04/2024 5:35 PM CDT Emergency [facility] Emergency Department [address] [place] [phone] Uday Quan APRN, C.N.P., D.N.P. Otitis Externa Acute Left (Primary Dx); Otitis Media Unspecified Left Ear Discharge Disposition: Home or Self Care 01/04/2024 Clinical Communication Department of Otorhinolaryngology in [place], [place] [address] [place] [address] Олег Gracia M.D. from Last 3 Months Immunizations Name Administration [...] AM CDT Diagnostic Department of Otorhinolaryngology in [place], [place] [address] [place] [address] Олег Gracia M.D. [address] [place] [phone] Jo Mota Au.D., M.A. [address] [place] [phone] 04/04/2024 1:00 PM CDT Diagnostic Department of Otorhinolaryngology in [place], [place] [address] [place] [address] Олег Gracia M.D. [address] [place] [phone] Glen Graham Au.D. [address] [place] [phone] 05/01/2024 12:15 PM CDT Office Visit Department of Neurology in [place], [place] [address] [place] [address] Yunier Galloway M.D., M.P.H. [address] [place] [address] Discharge Disposition: Home or Self [...] Exam 10/29/2022 10/29/2021 (Performed elsewhere) COVID-19 Vaccine ( - 2022-2 4 season) 2023 08/11/2021, 12/26/2020, 12/05/2020 Office Visit for Blood Press ure Check / Re-check 06/30/2023 03/30/2023 Depression Screening (Annual PHQ-2) 09/20/2023 Lipid (Cholesterol) Screening 11/25/2023, 07/17/2022, 02/02/2022, Additional history exists Influenza Vaccine (#1) 2024 , 07/23/2020, 09/06/2019, Additional history exists Creatinine Level (Kidney Fun ction Test) 01/03/2025 01/04/2024, 12/23/2022, 11/24/2022, Additional history exists Potassium Level 01/03/2025 01/04/2024, 04/0 01/2023, 11/24/2022, Additional history exists Sodium Level 01/03/2025 [...] LIPID PANEL, S Routine 11/24/2022 2:57 PM TECHNICAL STAFF ASSISTANT Hypertensive Chronic Kidney Disease (CKD) Stage 3a Glomerular Filtration Rate (GFR) 45 To 59 (HCC) HEMOGLOBIN A1C, B Routine 2021 10:01 AM CDT Diabetes Mellitus Type 2 With Diabetic Nephropathy (HCC) ALBUMIN, RANDOM, U Routine 09/18/2021 9: 14 AM TECHNICAL STAFF ASSISTANT Diabetes Mellitus Type 2 Hyperglycemia (HCC) from [...] MICROBIOLOGY - GENERAL ORDERABLES Performing Organization Address [facility] Co de Phone Number [facility] [address] [place] [address] * (ABNORMAL) Fungal Smear (01/04/2024 5:24 PM CDT) Fungal Smear HYPHAE(A) 01/04/2024 10:21 PM CDT DTL Swab (Ear, Left) 01/04/2024 5:24 PM CDT 01/04/2024 7:04 PM CDT Comment:Specimen Source Site : Swab Koko Lee P.A.-C. LAB MICROBIOLOGY - GENERAL ORDERABLES Performing Organization Address [facility] Co de Phone Number [facility] [address] [place] [address] * (ABNORMAL) Gram Stain (01/04/2024 5:24 PM CDT) Gram Stain GRAM POSITIVE COCCI Rare. (A) 01/04/2024 9:30 PM CDT DTL Swab (Ear, Left) 01/04/2024 5:24 PM CDT 01/04/2024 7:04 PM CDT Comment:Specimen Source Site : Swab Koko Lee P.A.-C. LAB MICROBIOLOGY - GENERAL ORDERABLES Performing Organization Address City/[facility] Co de Phone Number [facility] 200 [place], [place] [address] 200 [place] [address] * (ABNORMAL) Fungal Culture, Routine (01/04/2024 5:24 [...] MICROBIOLOGY - GENERAL ORDERABLES Performing Organization Address [facility] Co de Phone Number [facility] [address] [place], [place] [phone] [place] [address] 200 [place] [address] * Potassium (01/04/2024 3:44 PM CDT) Pathologist [facility] Potassium, P 4.8 3.6 - 5.2 mmol/L 01/04/2024 4:15 PM CDT [facility] Blood 01/04/2024 3:44 PM CDT 01/04/2024 3:52 PM CDT Uday Quan APRN, C.N.P., D.N.P. L AB BLOOD ADD-ON Performing Organization Address City/[facility] Co de Phone Number [facility] [address] [place] [address] * CT Temporal Bone without IV Contrast [...] the left superior semicircular canal. Uday Quan APRN C.N.P., D.N.P. I MG CT PROCEDURES * (ABNORMAL) Sedimentation Rate (01/04/2024 2:30 PM CDT) [facility] Sedimentation Rate, B 28(H) 2 - 20 mm/h 01/04/2024 3:42 PM CDT DT Blood (Blood, Venous) 01/04/2024 2:30 PM CDT 01/04/2024 2:45 PM CDT Uday Quan APRN, C.N.P., D.N.P. L AB BLOOD ADD-ON [facility] 200 [place] [address], [facility] 200 [place] [address] * CBC with Differential, Blood (01/04/2024 2:30 PM CDT) [facility] Hemoglobin 14.9 13.2 - 16.6 g/dL 01/04/2024 [...] CDT 01/04/2024 2:38 PM CDT Imtithal Kadeem CENTENO, C.N.P., D.N.P. L AB BLOOD ADD-ON [facility] [address] [place] [address], [facility] STMA [facility] [address] [place] [address] DHPM [facility] [address] [place] [address] * CRP (C-Reactive Protein) (01/04/2024 2:30 PM CDT) C-Reactive Protein (CRP), S 3.9 <5.0 mg/L 01/04/2024 3:25 PM CDT DTL Blood (Blood, Venous) 01/04/2024 2:30 PM CDT 01/04/2024 3:08 PM CDT Katie Cote APRNNBridgett, Sylvia.N.PJeff L AB BLOOD ADD-ON [facility] [address] [place] [address], [place] DTL [facility] [address] [place] [address] * (ABNORMAL) Basic Metabolic Panel (01/04/2024 2:30 [...] PM CDT 01/04/2024 2:38 PM CDT Imtithal Kisirwan AUTOMOTIVE TITLE CLERK, C.N.P., D.N.P. L AB BLOOD ADD-ON [facility] [address] [place] [address], [facility] [address] [place] [address] * (ABNORMAL) Lipid Panel (11/24/2022 2:57 PM TECHNICAL STAFF ASSISTANT) Triglycerides 392(H) mg/dL 11/24/2022 3:36 PM TECHNICAL STAFF ASSISTANT OWAT Comment: ----REFERENCE VALUE---- Normal: <150 mg/dL Borderline High: 150-199 mg/dL High: 200-499 mg/dL Very High: > or =500 mg/dL Cholesterol, Total 210(H) mg/dL 2022 3:36 PM TECHNICAL STAFF ASSISTANT OWAT Comment: ----REFERENCE VALUE---- Desirable: < 200 mg/dL Borderline High: 200 - 239 mg/dL High: > or = 240 mg/dL Cholesterol, LDL, Calculated 102 mg/dL 11/24/2022 3:36 PM TECHNICAL STAFF ASSISTANT OWAT Comment: ----REFERENCE VALUE---- Desirable: <100 mg/dL Above Desirable: 100-129 mg/dL Borderline High: 130-159 mg/dL High: 160-189 mg/dL Very High: >=190 mg/dL ----ADDITIONAL INFORMATION---- LDL cholesterol calculated using the Rivas/NIH equation. Cholesterol, HDL 42 >=40 mg/dL 11/25/19 3:36 PM TECHNICAL STAFF ASSISTANT OWAT Cholesterol, Non-HDL, Calculated 168(H) mg/dL 11/24/2022 3:36 PM TECHNICAL STAFF ASSISTANT OWAT Comment: ----REFERENCE VALUE---- Desirable: <130 mg/dL Above Desirable: 130-159 mg/dL Borderline High: 160-189 mg/dL High: 190-219 mg/dL Very High: > or =220 mg/dL Fasting (8 HR or more) No 11/24/2022 3:03 PM TECHNICAL STAFF ASSISTANT OWAT Blood (Blood, Venous) 11/24/2022 2:57 PM TECHNICAL STAFF ASSISTANT 11/24/2022 3:03 PM TECHNICAL STAFF ASSISTANT Glen Patel APRN C.N.P. LAB BLOOD ADD -ON Performing Organization Address City/[facility]/ZIP Co de Phone Number [facility] [address] [place] [address], [place] OWAT [facility] [place] [address] [place] [address] * (ABNORMAL) Hemoglobin A1c (2021 10:01 AM CDT) Hemoglobin A1c, B 8.5(H) 4.2 - 5.6 % 2021 2:29 PM CDT OW Comment: Hemoglobin A1c values greater than or equal to 6.5 percent are diagnostic for diabetes mellitus. ??Diagnosis should be confirmed by repeat testing. ??In diabetic patients, HbA1c goals should be discussed with healthcare provider. Blood (Blood, Venous) 2021 10:01 AM CDT 2021 1:46 PM CDT Cady Ramos APRN.N.P. LAB BLOOD ADD- ON Performing Organization Address City/[facility]/ZIP Co de Phone Number [facility] [address] [place] [address], [place] OWAT [facility] [place] [address] [place] [address] * (ABNORMAL) Albumin, Random, Urine (09/18/2021 9:14 AM TECHNICAL STAFF ASSISTANT) Microalbumin 2618.0 mg/L 09/18/2021 1:27 PM TECHNICAL STAFF ASSISTANT OWAT Creatinine 200 mg/dL 09/18/2021 11:02 AM TECHNICAL STAFF ASSISTANT OWAT Albumin/Creatinin e Ratio 1309(H) <17 mg/g 09/18/2021 1:27 PM TECHNICAL STAFF ASSISTANT OWAT Urine (Urine, Clean Catch) 09/18/2021 9:14 AM TECHNICAL STAFF ASSISTANT 09/18/2021 10:25 AM TECHNICAL STAFF ASSISTANT Vinicius I. Wariboko M.B.B.S., M.D. LAB URI NE ORDERABLES [facility] [address] [place] [address], [place] [address] [facility] [place] [address] [place] [address] from Last 3 Months or Most Recently Relevant to Health Maintenance Advance Directives For more information, please contact: [phone] Documents on File Type Date Recorded Patient Motorbike Courier Expl anation Advance Directives 03/20/2021 2:16 PM Jazz Jones Health Care Directive Healthcare Agents on File Name Relationship Healthcare Agent Relationshi p Communication Jazz Jones Spouse Health Care Agent Aly Jones First Alterna Health Care Agent Care Teams Lead Janitor Relationship Specialty Start Date End Date Elsewhere, Pcp PCP - General Internal Medicine 03/10/22
--- OUTSIDE RECORDS SUMMARY | 2024-03-31 11:39 | XMS_ITS | Encounter Summary ---
Author Organization [facility] Address [address] [place] [address] Care Team Providers Care School Lunch Manager Name Role Phone Elsewhere, Pcp Primary Care Provider Unavailabl e Encounter Details Date Type Department Care Team (Latest Contact Info) Description 01/04/2024 Clinical Communication Department of Otorhinolaryngology in [place], [place] [address] [phone] Олег Gracia M.D. [address] [phone] Social History Tobacco Use Types [...] AM CDT Diagnostic Department of Otorhinolaryngology in [place], [place] [address] [place] [address] Олег Gracia M.D. [address] [place] [phone] Jo Mota Au.D., M.A. [address] [place] [address] 04/04/2024 1:00 PM CDT Diagnostic Department of Otorhinolaryngology in [place], [place] [address] [place] [address] Олег Gracia M.D. [address] [place] [address] Glen Graham Au.D. 200 [place] [phone] 05/01/2024 12:15 PM CDT Office Visit Department of Neurology in [place], [place] [address] [place] [address] Yunier Galloway M.D., M.P.H. [address] [place] [address] Discharge Disposition: Home or Self Care documented as of this encounter Visit Diagnoses Not on filedocumented in this encounter Care Teams School Lunch Manager Relationship Specialty Start Date End Date Elsewhere, Pcp PCP - General Internal Medicine 03/10/22 documented as of this encounter
--- OUTSIDE RECORDS SUMMARY | 2024-03-31 11:39 | XMS_ITS | Encounter Summary ---
Author Organization [facility] Address [address] [place] [address] Care Team Providers Care Capsule Inspector Name Role Phone Elsewhere, Pcp Primary Care Provider Unavailabl e Encounter Details Date Type Department Care Team (Latest Contact Info) Description 12/29/2023 Clinical Communication Department of Otorhinolaryngology in [place], [place] [address] [phone] Олег Gracia M.D. [address] [phone] Social History Tobacco Use Types [...] AM CDT Diagnostic Department of Otorhinolaryngology in [place], [place] [address] [place] [address] Олег Gracia M.D. [address] [place] [phone] Jo Mota Au.D., M.A. [address] [place] [address] 04/04/2024 1:00 PM CDT Diagnostic Department of Otorhinolaryngology in [place], [place] [address] [place] [address] Олег Gracia M.D. [address] [place] [phone] Glen Graham Au.D. 200 [place] [phone] 05/01/2024 12:15 PM CDT Office Visit Department of Neurology in [place], [place] [address] [place] [address] Yunier Galloway M.D., M.P.H. [address] [place] [address] Discharge Disposition: Home or Self Care documented as of this encounter Visit Diagnoses Not on filedocumented in this encounter Care Teams Capsule Inspector Relationship Specialty Start Date End Date Elsewhere, Pcp PCP - General Internal Medicine 03/10/22 documented as of this encounter
--- OUTSIDE RECORDS SUMMARY | 2024-03-31 11:39 | XMS_ITS | Clinical Summary ---
Author Organization [employer] [facility] Address [place], [place] [address] Care Team Providers Care Roll Forming Machine Operator Name Role Phone Joss Manning MD Primary Care Provider + [facility] Care, [place] Unavailable Allergies Active Allergy Reactions Criticality Noted Date Comments Chlorthalidone Hypotension 01/29/2022 Caused dizziness at 25mg. Empagliflozin GI Upset 02/09/2022 GI tolerance Lisinopril Hyperkalemia 04/15/2017 Methocarbamol Dizziness 07/23/2020 [place] loopy, dizzy for 1.5 days. Fbgyfxn-Xww-Dqk Reductase Inhibitors Myalgia 08/19/2014 Medications Medication Sig [...] HOME 100 Each 3 12/07/2020 Active Insulin [place], Disposable, 32 gauge x Indications: Type 2 [...] Type Department Care Team Description 03/09/[address] [phone] Stanislav Mendoza MD Refill Request (Denied Onetouch Ultra Test / defer to current PCP [place] Department of [facility],) from Last 3 Months Immunizations Name Administration Dates Next Due COVID-19 vaccine (ChamelicBio NTech 30mcg/0.3mL) TEETEE CABRERA 12/26/2020,12/05/2020 Influenza RIV4 [...] Comments Blood Pressure 194/96 09/01/2023 12:36 PM FIRE PROTECTION DESIGNER Pulse 95 09/01/2023 12:36 PM FIRE PROTECTION DESIGNER Temperature 36.4 ??C (97.5 ??F) 09/01/2023 12:[address] Respiratory Rate 18 09/01/2023 12:36 PM FIRE PROTECTION DESIGNER Oxygen Saturation 98% 09/01/2023 12:36 PM FIRE PROTECTION DESIGNER Inhaled Oxygen Concentration - - Weight 110.7 kg (244 lb) 09/01/2023 12:36 PM FIRE PROTECTION DESIGNER Height 180.3 cm (5' 11) 07/20/2022 1:00 [...] - 199 mg/dL 07/17/2022 8:17 AM CDT [facility] TRIGLYCERIDES 182(H) <150 mg/dL 07/17/2022 8:17 AM CDT [facility] HDL CHOLESTEROL 28(L) >40 mg/dL 8:17 AM CDT [facility] NON-HDL CHOLESTEROL 117 <145 mg/dl 07/17/2022 8:17 AM CDT [facility] CHOL/HDL RATIO 5.18(H) <4.50 07/17/2022 8:17 AM CDT [facility] LDL CHOLESTEROL 81 <=130 mg/dL 07/17/2022 8:17 AM CDT [facility] VLDL CHOLESTEROL 36(H) <=30 mg/dL 07/17/2022 8:17 AM CDT [facility] PROVIDER ORDERED STATUS RANDOM 07/17/2022 8:17 AM CDT [facility] Blood BLOOD SPECIMEN / Unknown Venipuncture / Unknown 07/17/2022 6:36 AM CDT 07/17/2022 7:00 AM CDT Oriana Dawn MD CHEMISTRY [facility] [address] [place] [address], * COLONOSCOPY (12/02/2017 12:36 PM CDT) 12/02/2017 12:3 6 PM CDT Narrative Transcriptions Erik Nicole MD - 12/02/2017 1:02 PM CDT Patient Name: Reggie Jones Procedure Date: 12/02/2017 Gender: Male Date of : 1960 Admit Type: Ambulatory Procedure: Colonoscopy Proceduralist: Erik Nicole [facility] Indications/Pre-Op Diagnosis: Screening for colorectal malignantneoplasm [...] Recently Relevant to Health Maintenance Advance Directives Documents on File Type Date Recorded Patient Button And Buckle Maker Expl anation Healthcare Directive 02/11/2021 021 * [...] 10:39 AM 04/06/2017 4:43 PM Care Teams Roll Forming Machine Operator Relationship Specialty Start Date End Date Joss Manning MD [address] [place] [phone] PCP - General Family Practice 06/20/[address] [address] 07/18/22
--- OUTSIDE RECORDS SUMMARY | 2024-03-31 11:39 | XMS_ITS | Encounter Summary ---
Author Organization [facility] Address [address] [place] [address] Care Team Providers Care Director Of Casino Marketing Name Role Phone Elsewhere, Pcp Primary Care Provider Unavailabl e Reason for Referral * Outpatient (Routine) - Authorized Specialty Diagnoses / Procedures Referred By Sri wells Referred To Contact Diagnoses Dizziness Procedures Audio-Vestibular Balance evaluation Олег Gracia M.D. [address] [place] [phone] [facility] Referral ID Status Reason Start Date Expiration Date V isits Requested Visits Authorized [id number] Authorized 01/20/2024 01/19/2025 1 1 Reason for Visit * Reason Onset Date Comments Order Request 01/19/2024 Pre-visit Intake 01/19/2024 Encounter Details Date Type Department Care Team (Latest Contact Info) Description 01/19/2024 Clinical Communication Department of Otorhinolaryngology in [place], [place] [address] [place] [phone] Олег Gracia M.D. [address] [place] [phone] Order Request; Pre-visit Intake Social History [...] AM CDT Diagnostic Department of Otorhinolaryngology in [place], [place] [address] [place] [address] Олег Gracia M.D. [address] [phone] Jo Mota Au.D., M.A. [address] [place] [phone] 04/04/2024 1:00 PM CDT Diagnostic Department of Otorhinolaryngology in [place], [place] [address] [place] [address] Олег Gracia M.D. [address] [phone] Glen Graham Au.D. [address] [place] [phone] 05/01/2024 12:15 PM CDT Office Visit Department of Neurology in [place], [place] [address] [place] [address] Yunier Gallwoay M.D., M.P.H. [address] [place] [address] Discharge Disposition: Home or Self Care documented as of this encounter Visit Diagnoses Diagnosis Dizziness- Primary documented in this encounter Care Teams Director Of Casino Marketing Relationship Specialty Start Date End Date Elsewhere, Pcp PCP - General Internal Medicine 03/10/22 documented as of this encounter
--- OUTSIDE RECORDS SUMMARY | 2024-03-31 11:39 | XMS_ITS ---
Author Organization [facility] Address [address] [place] [address] Care Team Providers Care Clinical Science Consultant Name Role Phone Unavailable Unavailable Unavailable Surgery Details Not on file Complications Check Surgery Details section. Procedure Estimated Blood Loss Check Surgery Details section. Procedure Findings Check Surgery Details section. Procedure Specimens Taken Check Surgery Details section.
--- OUTSIDE RECORDS SUMMARY | 2024-03-31 11:39 | XMS_ITS | Encounter Summary ---
Author Organization [facility] Address [address] [place] [address] Care Team Providers Care Environmental Control Administrator Name Role Phone Elsewhere, Pcp Primary Care Provider Unavailabl e Reason for Visit * Reason Onset Date Comments Follow-up 01/05/2024 Encounter Details Date Type Department Care Team (Late st Contact Info) Description 01/05/2024 Clinical Communication [facility] Emergency Department [address] [place] [phone] Nory Andujar M.SJeffN., R.N. [address] [place] [phone] Follow-up Social History Tobacco Use Types Packs/Day [...] place of ED encounter being referenced: 01/03 [facility] ED Outcome / Disposition of encounter: Ear [...] trapped. ACTIONS TAKEN DURING CALL Other: ENT information technology program manager has been paged to discuss. Discussed patient's [...] AM CDT Diagnostic Department of Otorhinolaryngology in [place], [place] [address] [place] [address] Олег Gracia M.D. [address] [place] [phone] Jo Mota Au.D., M.A. [address] [place] [address] 04/04/2024 1:00 PM CDT Diagnostic Department of Otorhinolaryngology in [place], [place] [address] [place] [address] Олег Gracia M.D. [address] [place] [phone] Glen Graham Au.D. 200 [place] [address] 05/01/2024 12:15 PM CDT Office Visit Department of Neurology in [place], [place] [address] [place] [address] Yunier Galloway M.D., M.P.H. [address] [place] [address] Discharge Disposition: Home or Self Care documented as of this encounter Visit Diagnoses Not on filedocumented in this encounter Care Teams Environmental Control Administrator Relationship Specialty Start Date End Date Elsewhere, Pcp PCP - General Internal Medicine 03/10/22 documented as of this encounter
--- OUTSIDE RECORDS SUMMARY | 2024-03-31 11:39 | XMS_ITS | Encounter Summary ---
Author Organization [facility] Address [address] [place] [address] Care Team Providers Care Electronics Scale Tester Name Role Phone Elsewhere, Pcp Primary Care Provider Unavailabl e Reason for Referral * Outpatient (Routine) - Authorized Specialty Diagnoses / Procedures Referred By Sri wells Referred To Contact Otorhinolaryngology Diagnoses Dizziness Imbalance Non Orthopedic Eustachian Tube Disorder Bilateral Олег Gracia M.D. [address] [place] [address] [facility] Referral ID Status Reason Start Date Expiration Date V isits Requested Visits Authorized [id number] Authorized 12/22/2023 06/22/2025 1 1 Reason for Visit * Reason Comments Otitis Media * Appointment Request (Routine) - Closed Specialty Diagnoses / Procedures Referred By Sri wells Referred To Contact Otorhinolaryngology Referral ID Status Reason Start Date Expiration Date Visits Re quested Visits Authorized [id number] Closed 11/09/2023 11/08/2024 1 1 Encounter Details Date Type Department Care Team (Latest Contact Info) Description 12/22/2023 11:00 AM CDT Comprehensive Visit Department of Otorhinolaryngology in [place], [place] [address] [place] [address] Олег Gracia M.D. [address] [place] [address] (work) Dizziness (Primary Dx); Imbalance [...] with extensive workup with Dr. Silveira in [place]. He had a history of a CVA [...] Glomerular Filtration Rate (GFR) 45 To 59 ([facility]) 03/14/2021 Diabetes Mellitus 2 Ulcer Toe ([facility]) 10/07/2021 He has a wound on the first metatarsal since 02/07. He has been under the care of the jackspooler. Hewas told he needs an amputation. He had a recent negative MRI. Wound has included silvadene Then iodosorb. He stated nothing is working' He does have an appointment with vascular in [place] for venous/arterial competency. Doppler was used to [...] Other (see comments) Methocarbamol Other (see comments) Rives loopy, dizzy for 1.5 days. Fcxdrhc-Hth-Nqd Reductase Inhibitors Other (see comments) Current Outpatient [...] flash glucose scanning reader ([employer] Carmina 2 [place]) misc 1 application daily. 1 each 0 [...] Initially he was referred to subspecialty Otology, [facility] however he was scheduled to seeme general ENT. If we are unable to obtain [place] appointment discussed option of the neurology consultation. I think he needs tertiary, probable multi specialty evaluation. If unable to get him in to [place], discussed option of [facility]. Referral order for [place] was placed. He will follow-up with Dr. Sunil Silveira as needed. Олег Gracia M.D. 12/29/2023 3:35 PM CDT documented in this encounter Plan of Treatment Upcoming Encounters Date Type Department Care Team (Latest Contact Info) Description 04/04/2024 10:45 AM CDT Diagnostic Department of Otorhinolaryngology in [place], [place] [address] [place] [address] Олег Gracia M.D. [address] [phone] Jo Mota Au.D., M.A. [address] [place] [phone] 04/04/2024 1:00 PM CDT Diagnostic Department of Otorhinolaryngology in [place], [place] [address] [place] [phone] Олег Gracia M.D. [address] [phone] Glen Graham Au.D. [address] [place] [phone] 05/01/2024 12:15 PM CDT Office Visit Department of Neurology in [address] [address] Yunier Galloway M.D., M.P.H. [address] [place] [phone] Discharge Disposition: Home or Self Care Scheduled Referrals Name Type Priority Associated Diagnoses Order Schedule Otorhinolaryngology - Otology and neurotology consult (clinic) Outpatient Referral Routine Dizziness Imbalance Non Orthopedic Eustachian Tube Disorder Bilateral Expected: 12/22/2023, Expires: 03/22/2025 documented as of this encounter Visit Diagnoses Diagnosis Dizziness- Primary Imbalance Non Orthopedic Eustachian Tube Disorder Bilateral documented in this encounter Care Teams Electronics Scale Tester Relationship Specialty Start Date End Date Elsewhere, Pcp PCP - General Internal Medicine 03/10/22 documented as of this encounter
--- OUTSIDE RECORDS SUMMARY | 2024-03-31 11:39 | XMS_ITS | Referral Summary ---
Author Organization [facility] Address [address] [place] [address] Care Team Providers Care Human Capital Manager Name Role Phone Elsewhere, Pcp Primary Care Provider Unavailabl e Source Comments Patient records contain information from all sites at [facility]. For routine questions regarding patient records, call [phone] during business hours, M-F 8:00 AM - 5:00 PM Central Time. Record requests for emergency care only can be directed to [phone] at any time.[facility] Encounters Date Type Department Care Team Description 01/19/2024 Clinical Communication Department of Otorhinolaryngology in [place], [place] [address] [place] [address] Олег Gracia M.D. Order Request; Pre-visit Intake 01/12/2024 Clinical Communication Department of Otorhinolaryngology in [place], [place] [address] [place] [address] Vinicius Rios M.D. 01/05/2024 Clinical Communication [facility] Emergency Department [address] [place] [phone] Nory Andujar M.S.N., R.N. Follow-up 01/04/2024 1:10 PM CDT - 01/04/2024 5:35 PM CDT Emergency [facility] Emergency Department [address] [place] [phone] Uday Quan APRN, C.N.P., D.N.P. Otitis Externa Acute Left (Primary Dx); Otitis Media Unspecified Left Ear Discharge Disposition: Home or Self Care 01/04/2024 Clinical Communication Department of Otorhinolaryngology in [place], [place] [address] [place] [phone] Олег Gracia M.D. from Last 3 Months Allergies Active Allergy Reactions Criticality Noted Date Comments Chlorthalidone Hypotension (Reselect Reaction) 01/29/2022 Caused dizziness at 25mg. Empagliflozin GI intolerance 02/09/2022 GI tolerance Lisinopril Other (see comments) 04/15/2017 Methocarbamol Other (see comments) 07/23/2020 [place] loopy, dizzy for 1.5 days. Upkmpqo-Xqw-Ojw Reductase Inhibitors Other (see comments) 08/19/2014 Medications [...] 3 02/20/2021 Active flash glucose scanning reader ([employer]Style Carmina 2 [place]) miscIndications:Kym betes Mellitus Type 2 With Diabetic [...] times a day with meals. 180 tablet 01/30/2022 Active Additional Information Patient taking differently:500 mg oralDaily with morning meal, Reported on 11/20/2022 Ian Rice U-100 Insulin 100 unit/mL (3 mL) injectionIndication s:Diabetes Mellitus Type 2 With Diabetic Nephropathy Hyperglycemic (HCC),Shelter Use Of Insulin Active (HCC) Inject 60 [...] was recommended. 02/05/22 He initiated care with [facility] Wound center. Last Assessment & Plan: [...] these medications. I suggested he go to [place]'s emergency department for his overall constitutional symptoms. I feel he would need Ortho ID and would benefit from hospitalization to workup his multiple chronic medical problems. He is refusing to go. He states he needs to fix his planter. I felt that he needs to be seen in a wound center. He would prefer to not go to [place]. I did put a referral in for him to go to the [facility] wound clinic in [place]. He will call to make an appointment. The benefit of a center such as [place] is the accessibility of hyperbaric therapy, if [...] Aspart 15-20 units tid with meals Freestyle Carmian Last Assessment & Plan: At follow up [...] AM CDT Diagnostic Department of Otorhinolaryngology in [place], [place] [address] [place] [address] Олег Gracia M.D. [address] [place] [phone] Jo Mota Au.D., M.A. [address] [place] [phone] 04/04/2024 1:00 PM CDT Diagnostic Department of Otorhinolaryngology in [place], [place] [address] [place] [address] Олег Gracia M.D. [address] [place] [phone] Glne Graham Au.D. [address] [place] [phone] 05/01/2024 12:15 PM CDT Office Visit Department of Neurology in [place] [phone] [place] [address] Yunier Galloway M.D., M.P.H. [address] [place] [phone] Discharge Disposition: Home or Self Care Procedures [...] LIPID PANEL, S Routine 11/24/2022 2:57 PM MAIL TECHNICIAN Hypertensive Chronic Kidney Disease (CKD) Stage 3a Glomerular Filtration Rate (GFR) 45 To 59 (HCC) HEMOGLOBIN A1C, B Routine 2021 10:01 AM CDT Diabetes Mellitus Type 2 With Diabetic Nephropathy (HCC) ALBUMIN, RANDOM, U Routine 09/18/2021 9: 14 AM MAIL TECHNICIAN Diabetes Mellitus Type 2 Hyperglycemia (HCC) from [...] MICROBIOLOGY - GENERAL ORDERABLES Performing Organization Address City/[facility]/ZIP Co de Phone Number [facility] [address] [facility] [address] [place] [address] * (ABNORMAL) Fungal Smear (01/04/2024 5:24 PM CDT) Fungal Smear HYPHAE(A) 01/04/2024 10:21 PM CDT DTL Swab (Ear, Left) 01/04/2024 5:24 PM CDT 01/04/2024 7:04 PM CDT Comment:Specimen Source Site : Swab Koko Lee P.A.-C. LAB MICROBIOLOGY - GENERAL ORDERABLES Performing Organization Address [facility] Co de Phone Number [facility] [address] [facility] [address] [place] [address] * (ABNORMAL) Gram Stain (01/04/2024 5:24 PM CDT) Gram Stain GRAM POSITIVE COCCI Rare. (A) 01/04/2024 9:30 PM CDT DTL Swab (Ear, Left) 01/04/2024 5:24 PM CDT 01/04/2024 7:04 PM CDT Comment:Specimen Source Site : Swab Koko Lee P.A.-C. LAB MICROBIOLOGY - GENERAL ORDERABLES Performing Organization Address City/[facility]/ZIP Co de Phone Number [facility] [address] [facility] [address] [place] [address] * (ABNORMAL) Fungal Culture, Routine (01/04/2024 5:24 [...] Lee P.A.-C. LAB MICROBIOLOGY - GENERAL ORDERABLES [facility] [address] [place], [place] [phone] [place] [address] [address] [place] [address] * Potassium (01/04/2024 3:44 PM CDT) Pathologist [facility] Potassium, P 4.8 3.6 - 5.2 mmol/L 01/04/2024 4:15 PM CDT STMA Blood 01/04/2024 3:44 PM CDT 01/04/2024 3:52 PM CDT Uday Quan APRN C.N.P., D.N.P. 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 [facility] Quan APRN C.N.P., D.N.P. I MG CT PROCEDURES * (ABNORMAL) Sedimentation Rate (01/04/2024 2:30 PM CDT) Pathologist [facility] Sedimentation Rate, B 28(H) 2 - 20 mm/h 01/04/2024 3:42 PM CDT DTL Blood (Blood, Venous) 01/04/2024 2:30 PM CDT 01/04/2024 2:45 PM CDT [facility] Kadeem CENTENO, C.N.P., D.N.P. L AB BLOOD ADD-ON [facility] [address] [place] [address], [facility] [address] [place] [address] * CBC with Differential, Blood (01/04/2024 2:30 [...] CDT 01/04/2024 2:38 PM CDT Uday Quan APRN, C.N.P., D.N.P. L AB BLOOD ADD-ON [facility] [address] [place] [address], [facility] STMA [facility] [address] [place] [address] [facility] [address] [place] [address] * CRP (C-Reactive Protein) (01/04/2024 2:30 PM CDT) C-Reactive Protein (CRP), S 3.9 <5.0 mg/L 01/04/2024 3:25 PM CDT DTL Blood (Blood, Venous) 01/04/2024 2:30 PM CDT 01/04/2024 3:08 PM CDT Uday Quan APRN C.N.P., D.N.P. L AB BLOOD ADD-ON Performing Organization Address City/[facility]/ZIP Co de Phone Number [facility] [address] [place] [address], [facility] DTL [facility] [address] [place] [address] * (ABNORMAL) Basic Metabolic Panel (01/04/2024 2:30 [...] 2:30 PM CDT 01/04/2024 2:38 PM CDT Cady Cote APRN.N.P., D.N.P. L AB BLOOD ADD-ON [facility] [address] [place] [address], [facility] [address] [place] [address] * (ABNORMAL) Lipid Panel (11/24/2022 2:57 PM MAIL TECHNICIAN) Triglycerides 392(H) mg/dL 11/24/2022 3:36 PM MAIL TECHNICIAN OWAT Comment: ----REFERENCE VALUE---- Normal: <150 mg/dL Borderline High: 150-199 mg/dL High: 200-499 mg/dL Very High: > or =500 mg/dL Cholesterol, Total 210(H) mg/dL 2022 3:36 PM MAIL TECHNICIAN OWAT Comment: ----REFERENCE VALUE---- Desirable: < 200 mg/dL Borderline High: 200 - 239 mg/dL High: > or = 240 mg/dL Cholesterol, LDL, Calculated 102 mg/dL 11/24/2022 3:36 PM MAIL TECHNICIAN OWAT Comment: ----REFERENCE VALUE---- Desirable: <100 mg/dL Above Desirable: 100-129 mg/dL Borderline High: 130-159 mg/dL High: 160-189 mg/dL Very High: >=190 mg/dL ----ADDITIONAL INFORMATION---- LDL cholesterol calculated using the Rivas/NIH equation. Cholesterol, HDL 42 >=40 mg/dL 11/25/19 3:36 PM MAIL TECHNICIAN OWAT Cholesterol, Non-HDL, Calculated 168(H) mg/dL 11/24/2022 3:36 PM MAIL TECHNICIAN OWAT Comment: ----REFERENCE VALUE---- Desirable: <130 mg/dL Above Desirable: 130-159 mg/dL Borderline High: 160-189 mg/dL High: 190-219 mg/dL Very High: > or =220 mg/dL Fasting (8 HR or more) No 11/24/2022 3:03 PM MAIL TECHNICIAN OWAT Blood (Blood, Venous) 11/24/2022 2:57 PM MAIL TECHNICIAN 11/24/2022 3:03 PM MAIL TECHNICIAN Glen Patel APRN, C.N.P. LAB BLOOD ADD -ON [facility] [address] [place] [address], [facility] OWAT [facility] [place] [address] [place] [address] * (ABNORMAL) Hemoglobin A1c (2021 10:01 AM [...] CDT 2021 1:46 PM CDT Cady Ramos APRN.N.PJeff LAB BLOOD ADD- ON Performing Organization Address City/[facility]/ZIP Co de Phone Number [facility] [address] [place] [address], [facility] OWAT [facility] [place] [address] [place] [address] * (ABNORMAL) Albumin, Random, Urine (09/18/2021 9:14 AM MAIL TECHNICIAN) Microalbumin 2618.0 mg/L 09/18/2021 1:27 PM MAIL TECHNICIAN OWAT Creatinine 200 mg/dL 09/18/2021 11:02 AM MAIL TECHNICIAN OWAT Albumin/Creatinin e Ratio 1309(H) <17 mg/g 09/18/2021 1:27 PM MAIL TECHNICIAN OWAT Urine (Urine, Clean Catch) 09/18/2021 9:14 AM MAIL TECHNICIAN 09/18/2021 10:25 AM MAIL TECHNICIAN Vinicius Garza M.D. LAB URI NE ORDERABLES Performing Organization Address City/[facility]/ZIP Co de Phone Number [facility] [address] [place] [address], [place] OWAT [facility] [place] [address] [place] [address] from Last 3 Months or Most Recently Relevant to Health Maintenance Advance Directives For more information, please contact: [phone] Documents on File Type Date Recorded Patient Shaper Machine Hand Expl anation Advance Directives 03/20/2021 2:16 PM Jazz Jones Health Care Directive Healthcare Agents on File Name Relationship Healthcare Agent Relationshi p Communication Jazz Jones Spouse Health Care Agent Aly Jones [facility] Alterna Health Care Agent Care Teams Human Capital Manager Relationship Specialty Start Date End Date Elsewhere, Pcp PCP - General Internal Medicine 03/10/22
--- OUTSIDE RECORDS SUMMARY | 2024-03-31 11:39 | XMS_ITS | Encounter Summary ---
Author Organization [facility] Address [address] [place] [address] Care Team Providers Care Car Repairer Name Role Phone Elsewhere, Pcp Primary Care Provider Unavailabl e Reason for Visit * Reason Comments Earache L ear Encounter Details Date Type Department Care Team (Late st Contact Info) Description 01/04/2024 1:10 PM CDT - 01/04/2024 5:35 PM CDT Emergency [facility] Emergency Department [address] [place] [phone] Uday Quan APRN, C.N.P., D.N.P. [address] [place] [phone] Otitis Externa Acute Left (Primary Dx); Otitis [...] Consider use of live culture yogurt or jsks-bke-ymaimgv probiotic, candiscuss with local pharmacist about their [...] through Care Everywhere. * Otitis Media Adult Oooz-ub-Mjxy (Yi) * Otitis Externa Dhkg-ui-Bhpl (Yi) documented in this encounter Medications at Time of Discharge Medication Sig Dispensed Refills Start Date End Date Ian Rice U-100 Insulin 100 unit/mL (3 mL) injectionIndications: Diabetes Mellitus Type 2 With Diabetic Nephropathy Hyperglycemic (HCC),Mcfp Use Of Insulin Active (HCC) Inject 60 [...] mouth daily. 08/31/2022 flash glucose scanning reader ([employer] Carmina 2 [place]) miscIndications:Diabe sri Mellitus Type 2 With Diabetic [...] Glomerular Filtration Rate (GFR) 45 To 59 ([facility]) 03/14/2021 Diabetes Mellitus 2 Ulcer Toe ([facility]) 10/07/2021 He has a wound on the first metatarsal since 02/07. He has been under the care of the patient admitting representative. Hewas told he needs an amputation. He had a recent negative MRI. Wound has included silvadene Then iodosorb. He stated nothing is working' He does have an appointment with vascular in [place] for venous/arterial competency. Doppler was used to ascertain pedal pulse. Tendon visualized. Diabetes Mellitus Type 2 With Diabetic Nephropathy ([facility]) 11/11/2016 Hypertension Essential Primary 03/14/2021 Hypertensive Chronic Kidney Disease (CKD) Stage 3a Glomerular Filtration Rate (GFR) 45 To 59 ([facility]) 03/14/2021 Hypertension with CKD Family [...] breathing, no wheezing or stridor noted. Cardiac: [place], well-perfused extremities, no signs of cyanosis. Assessment/Plan: [...] This case was discussed with Chief Resident workers compensation coordinator, Dr. Cuate Rios. The primary service has been updated regarding the plan. Thank you for involving us in the care of this patient. Please do not hesitate [place] [phone] with any additional questions or concerns. Richardson French M.D., Ph.D. Otorhinolaryngology - Head & Neck Surgery ENT on-call pager number: [phone] documented in this encounter ED Notes * Koko Lee P.A.-C. - 01/04/2024 4:55 PM CDT Care of patient transferred to ar by Uday Castelan CNP. Disposition pending CT [...] Ear - concern for developing mastoiditis Koko Lee, P.A.-C. 01/04/241748 * Uday Quan APRN, C.N.P., [...] AM CDT Diagnostic Department of Otorhinolaryngology in [place], [place] [address] [place] [phone] Олег Gracia M.D. [address] [place] [address] Jo Mota Au.D., M.A. 200 [place] [phone] 04/04/2024 1:00 PM CDT Diagnostic Department of Otorhinolaryngology in [place], [place] [address] [place] [phone] Олег Gracia M.D. [address] [place] [address] Glen Graham Au.D. [address] [place] [address] 05/01/2024 12:15 PM CDT Office Visit Department of Neurology in [place], [place] [address] [place] [address] Yunier Galloway M.D., M.P.H. [address] [place] [address] Discharge Disposition: Home or Self [...] MICROBIOLOGY - GENERAL ORDERABLES Performing Organization Address City/[facility]/ZIP Co de Phone Number [address] [place] [address] * (ABNORMAL) Fungal Smear (01/04/2024 5:24 PM CDT) Fungal Smear HYPHAE(A) 01/04/2024 10:21 PM CDT DTL Swab (Ear, Left) 01/04/2024 5:24 PM CDT 01/04/2024 7:04 PM CDT Comment:Specimen Source Site : Swab Koko Lee P.A.-C. LAB MICROBIOLOGY - GENERAL ORDERABLES Performing Organization Address City/[facility]/ZIP Co de Phone Number [facility] [address] [place] [address] * (ABNORMAL) Bacterial Culture, Aerobic + Susceptibility [...] MICROBIOLOGY - GENERAL ORDERABLES Performing Organization Address City/[facility] Co de Phone Number [facility] [address] [place] [address] * (ABNORMAL) Fungal Culture, Routine (01/04/2024 5:24 [...] MICROBIOLOGY - GENERAL ORDERABLES Performing Organization Address [facility] Co de Phone Number [facility] [address] [place] [address] * Potassium (01/04/2024 3:44 PM CDT) Potassium, P 4.8 3.6 - 5.2 mmol/L 01/04/2024 4:15 PM CDT STMA Blood 01/04/2024 3:44 PM CDT 01/04/2024 3:52 PM CDT Uday Quan APRN, C.N.P., D.N.P. 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 [facility] Quan APRN, C.N.P., D.N.P. I MG CT PROCEDURES * CRP (C-Reactive Protein) (01/04/2024 2:30 PM CDT) Pathologist [facility] C-Reactive Protein (CRP), S 3.9 <5.0 mg/L 01/04/2024 3:25 PM CDT DTL Blood (Blood, Venous) 01/04/2024 2:30 PM CDT 01/04/2024 3:08 PM CDT [facility] Kadeem CENTENO, C.N.P., D.N.P. L AB BLOOD ADD-ON [facility] [address] [place] [address], [facility] [address] [place] [address] * (ABNORMAL) Sedimentation Rate (01/04/2024 2:30 PM CDT) Pathologist [facility] Sedimentation Rate, B 28(H) 2 - 20 mm/h 01/04/2024 3:42 PM CDT DT Blood (Blood, Venous) 01/04/2024 2:30 PM CDT 01/04/2024 2:45 PM CDT Katie Cote APRNN.PJeff, D.N.P. L AB BLOOD ADD-ON [facility] [address] [place] [address], [facility] [address] [place] [address] * CBC with Differential, Blood (01/04/2024 2:30 [...] CENTENO C.N.P., D.N.P. L AB BLOOD ADD-ON [facility] [address] [place] [address], [facility] STMA [facility] [address] [place] [address] DHPM [facility] [address] [place] [address] * (ABNORMAL) Basic Metabolic Panel (01/04/2024 2:30 [...] APRN C.N.P., D.N.P. L AB BLOOD ADD-ON [facility] [address] [place] [address], [facility] [address] [place] [address] documented in this encounter Visit Diagnoses Diagnosis Otitis Externa Acute Left- Primary Otitis Media Unspecified Left Ear documented in this encounter Care Teams Car Repairer Relationship Specialty Start Date End Date Elsewhere, Pcp PCP - General Internal Medicine 03/10/22 documented as of this encounter
--- OUTSIDE RECORDS SUMMARY | 2024-03-31 11:39 | XMS_ITS | Continuity of Care Document ---
Author Organization [facility] Address [address] [place] [address] Phone Care Team Providers Care Denture Waxer Name Role Phone Josr Beasley MD Unavailable Unavailable Allergies, Adverse Reactions, Alerts Substance Reaction Status Criticality No Known Allergies Active No Inform ation Medications Medication Instructions Dosage Effective Dates (start - stop) Status Comments NORCO (unknown strength) Not Available - A ctive GABAPENTIN (unknown strength) Not Available - Active TIZANIDINE HCL (unknown strength) Not Available - Active METFORMIN HCL (unknown strength) Not Available - Active NOVOLOG PENFILL (unknown strength) Not Available - Active LANTUS (unknown strength) Not Available - Active GLIPIZIDE (unknown strength) Not Available - Active CHLORTHALIDONE (unknown strength) Not Available - Active ASPIRIN (unknown strength) Not Available - Active Procedures Procedure Date Office/Outpatient Visit,Est, Mod 2020 Office/Outpatient Visit,New, Mod 2017 Advance Directives Directive Yes / No Effective Date File Name No Information Encounters Encounter Description Practice Location Reason(s) For Visit Diagnoses Date Provider Providers Copied on Encounter [facility], [address], [place], [id number] , [place] tel: [phone] [facility] No Information 1 Ramos Ovalles. [facility], [address] [place] [address], [address], [place], [id number] , [place]. tel: [phone] Office/Outpa tient Visit,Est, Mod [facility], [address], [place], [id number] , [place] tel: [phone] [facility] Other intervertebral disc displacement, lumbar regionRadiculop athy, lumbar regionSpinal stenosis, lumbar region with neurogenic claudication 1 Ramos Ovalles. [facility], [address], [address], [place], [place], [id number] , [place]. tel:[phone] Referring Provider: Woodrow Morrison [address] [address] [place], [address]. [phone] Office/Outpa tient Visit,New, Mod [facility], [address], [place], [place], [id number] , [place] tel:[phone] [facility] Other intervertebral disc displacement, lumbar region 8 Ramos Ovalles. [facility], [address], [address], [place], [place], [id number] , . tel:[phone] Referring Provider: Woodrow Morrison [facility] [address] [facility] [place], [address]. tel:[phone] Family History Family Member Type Diagnosis Age At Onset No Information Payers Payer name Insurance type Covered democrat ID Danay sadler(s) Risk Administration Service [id number] Social History Type Description Quantity Date Captured [...]
--- OUTSIDE RECORDS SUMMARY | 2024-03-31 11:39 | XMS_ITS | Encounter Summary ---
Author Organization [facility] Address [address] [place] [address] Care Team Providers Care Carpenter Bridge Name Role Phone Elsewhere, Pcp Primary Care Provider Unavailabl e Encounter Details Date Type Department Care Team (Latest Contact Info) Description 01/12/2024 Clinical Communication Department of Otorhinolaryngology in [place], [place] [address] [place] [phone] Vinicius Rios M.D. [address] [place] [address] Social History Tobacco Use Types Packs/Day Years [...] AM CDT Diagnostic Department of Otorhinolaryngology in [place], [place] [address] [place] [phone] Олег Gracia M.D. [address] [phone] Jo Mota Au.D., M.A. [address] [place] [phone] 04/04/2024 1:00 PM CDT Diagnostic Department of Otorhinolaryngology in [place], [place] [address] [place] [address] Олег Gracia M.D. [address] [place] [phone] Glen Graham Au.D. 200 [place] [phone] 05/01/2024 12:15 PM CDT Office Visit Department of Neurology in [place] [id number] [place] [phone] Yunier Galloway M.D., M.P.H. [address] [place] [phone] Discharge Disposition: Home or Self Care documented as of this encounter Visit Diagnoses Not on filedocumented in this encounter Care Teams Carpenter Bridge Relationship Specialty Start Date End Date Elsewhere, Pcp PCP - General Internal Medicine 03/10/22 documented as of this encounter
--- NOTE | 2024-03-31 11:58 | CRLHL7_ITS ---
For Patients: As a result of the 21st Century Cures Act, medical imaging exams and procedure reports are released immediately into your electronic medical record. You may view this report before your referring provider. If you have questions, please contact your health care provider. INDICATION: Vertigo, left ear pain TECHNIQUE: CT of the temporal bones without contrast. Coronal and axial small field of view reconstructions of both temporal bones are included. COMPARISON: CT head 03/31/2024, 11/18/2023, CT temporal bone 10/19/2023 FINDINGS: RIGHT temporal bone: Normal periauricular soft tissues. Normal external auditory canal. Normal tympanic membrane. Clear middle ear and mastoid air cells. Normal ossicular chain. Normal facial nerve canal. Normal mineralization of the otic capsule. Normal cochlea, vestibule, and vestibular aqueduct. Redemonstration of thin bony roof overlying the superior semicircular canal. Normal internal auditory canal. Normal carotid canal and jugular fossa. LEFT temporal bone: Mild circumferential mucosal thickening and trace debris/cerumen throughout the external auditory canal, progressed relative to 10/19/2023. Large middle ear and mastoid effusions, with near-complete low-attenuation opacification. No suspicious fluid collections identified in the periauricular soft tissues. No aggressive bony erosions identified. Sharp bony scutum. Intact ossicular chain. Preserved mastoid septae. Unremarkable facial nerve canal. Normal cochlea, vestibule, and vestibular aqueduct. Redemonstration of thin bony roof overlying the superior semicircular canal. Normal internal auditory canal. Normal carotid canal and jugular fossa. Other structures: Lobulated mucosal thickening throughout the left posterior ethmoid air cells. No sinonasal air-fluid level. Orbits are unremarkable for technique. Intracranial structures are detailed in a separate report. IMPRESSION: 1. Large left-sided middle ear and mastoid effusions, progressed relative to 10/19/2023, and compatible with otomastoiditis. 2. Progressive circumferential mucosal thickening throughout the left external auditory canal, presumably reactive. 3. No aggressive bony erosions identified. No suspicious fluid collections are seen in the periauricular soft tissues. 4. Thin appearance of the bony roof overlying the bilateral superior semicircular canals. Consider correlation for potential superior semicircular canal dehiscence syndrome. 5. Otherwise, unremarkable CT of the right temporal bone. Please note that all CT scans at this facility use dose modulation, iterative reconstruction, and/or weight-based dosing when appropriate to reduce radiation dose to as low as reasonably achievable. Dictated by Kayy Reyes MD @ 03/31/2024 4:02:55 PM (Electronically Signed)
--- NOTE | 2024-03-31 11:58 | CRLHL7_ITS ---
For Patients: As a result of the Century Cures Act, medical imaging exams and procedure reports are released immediately into your electronic medical record. You may view this report before your referring provider. If you have questions, please contact your health care provider. INDICATION: Vertigo and left ear pain. TECHNIQUE: CT head without contrast. COMPARISON: Head CT 11/18/2023. FINDINGS: CSF spaces: Within normal limits for age. Brain parenchyma and extra-axial spaces: The spears-white differentiation is normal. No sign of mass, hemorrhage, or midline shift. No extra-axial fluid collection. Mild low-density within the deep white matter. Skull base and calvarium: Opacify the left mastoid air cells with fluid in the middle ear. The visualized orbits are grossly unremarkable. No skull fractures. Atherosclerosis. IMPRESSION: 1. No intracranial bleed or mass effect. 2. Fluid within the left middle ear and mastoid air cells which can be seen in otitis media. 3. Mild nonspecific white matter disease, likely microangiopathy. Please note that all CT scans at this facility use dose modulation, iterative reconstruction, and/or weight-based dosing when appropriate to reduce radiation dose to as low as reasonably achievable. Dictated by Thierry Garzon MD @ 03/31/2024 2:12:57 PM (Electronically Signed)
[2024-03-31] MEDS: 0.9 % SODIUM CHLORIDE 1000 ml 1,000 ML IV (12:12)
[2024-03-31] MEDS: ONDANSETRON 2 MG/ML inj 4 MG IVP ×3 (12:12→18:59)
[2024-03-31 12:19] LABS: Basophils Absolute Auto 0.01 K/uL (0.00-0.30); Basophils Percent Auto 0.1 % (0.0-3.0); Eosinophils Absolute Auto 0.02 K/uL (0.00-0.50); Eosinophils Percent Auto 0.3 % (0.0-7.0); Hematocrit 32.7 % (37.0-53.0); Hemoglobin* 11.1 gm/dL (13.5-17.5); Immature Granulocytes Abs Auto 0.02 K/uL (0.00-0.30); Immature Granulocytes Pct Auto 0.3 %; Lymphocytes Percent Auto 7.5 % (20-44); Mean Corpuscular HGB Conc 34 gm/dL (32-36); Mean Corpuscular Hemoglobin 32 pg (26-34); Mean Corpuscular Volume 93 fL (80-100); Monocytes Percent Auto 3.4 % (0.0-11.0); Neutrophils Percent Auto 88.4 % (42.0-72.0); Platelet Count* 155 K/uL (140-440); Red Blood Count 3.51 m/uL (4.30-5.90); Slide Review Reflex No; White Blood Count* 6.78 K/uL (4.50-11.00)
[2024-03-31 12:30] LABS: HCO3 VBG 24 mmol/L (21-28); PCO2 VBG 45 mmHG (40-50); PO2 VBG < 30.1 mmHG (25-47); pH VBG 7.326 (7.32-7.43)
[2024-03-31] MEDS: MECLIZINE HCL 25 MG TABLET PO (12:38)
[2024-03-31 12:52] LABS: Chloride* 105 mmol/L (96-114); Potassium* 5.1 mmol/L (3.6-5.1); Sodium* 140 mmol/L (135-149)
[2024-03-31 12:55] LABS: Anion Gap 14 mEq/L (7-15); Blood Urea Nitrogen* 30 mg/dL (7-30); Carbon Dioxide* 21 mmol/L (20-32); Creatinine* 1.7 mg/dL (0.5-1.5); Estimated Glomerular Filt Rate 45 ml/min
[2024-03-31 12:56] LABS: Calcium* 9.7 mg/dL (8.4-10.6)
[2024-03-31 13:04] LABS: Glucose* 413 mg/dL (60-115)
[2024-03-31 13:09] LABS: Erythrocyte SedimentationRate* 28 mm/hr (2-15)
[2024-03-31 14:02] VITALS: BP 200/102; PULSE 79; RESP 20; O2SAT 98
[2024-03-31] MEDS: PIPERACILLIN/TAZOBACTAM 4.5 GM in 0.9 % SODIUM CHLORIDE Mini-bag 100 ML IVPB (15:29)
[2024-03-31 16:31] VITALS: BP 205/118; PULSE 102; RESP 20; TEMP 36.8; O2SAT 95; BMI 33.6
[2024-03-31 17:01] VITALS: RESP 20; O2SAT 93
[2024-03-31] MEDS: FLUCONAZOLE 100 MG TABLET 200 MG PO (17:14)
--- NOTE | 2024-03-31 17:18 | P.IMHP_ITS ---
Hospitalist- H&P: HPI History of Present Illness Date Seen: 03/31/24 Chief complaint: post surgical - vomiting, nausea Narrative: Reggie Jones is a 63 year old male with diabetes and anxiety/panic disorder admitted with acute on chronic left otomastoiditis. 07/19/2023 he was seen for left ear pain thought secondary to cerumen impaction. Ear exam was otherwise unremarkable. 09/09/2023 he was seen for bilateral ear pain and sinus pain. Treated with Omnicef. 10/07/2023 he was seen by Dr. Mead for decreased bilateral hearing for 2 months and plugged left ear. Audiometry showed normal tympanograms and a fairly flat moderate sensorineural hearing loss between 40 and [address] of the external auditory canal showed normal right temporal bone structures, opacification of the posterior inferior left mastoid air cells and marked thinning and focal dehiscence of the osseous margin of the left superior semicircular canal. 10/19/2023 he was seen with ENT and noted some dizziness with some swelling of the external auditory canals. Could not tolerate MRI due to claustrophobia. Started on topical cortisone to the external auditory canal 11/04/2023 he was examined under the operating microscope. Fungal hyphae were seen in his external canal. Treated with clotrimazole but did not tolerate it. November 24 2023 examined under the microscope and both ears look clear. he was continuing treatment with Flonase 12/02/2023 he is concerned of vision changes associated with ear drops. Saw the eye doctor. Also reporting headache and ongoing sense of plugged ears. Referred to [facility]. Appointment in 4 days from now. 12/16/2023 he underwent an office procedure to place a left myringotomy tube for left eustachian tube dysfunction. 12/23/2023 he reports that the tube helped for the 1st couple days and then started hurting. Treated with amoxicillin 01/04/2024 went to the emergency room at [facility]. Diagnosed with otitis externa. CT showed no obvious bony destruction or osteomyelitis. He had suctioning and placement of a wick. Started on oral Levaquin and moxifloxacin drops. Culture apparently showed fungal otitis. 01/13/2024 examined and seen to have a relatively clear external canal. Continued on Ciprodex drops 02/10/2024 Evaluation showed external ear canal dermatitis and cerumen and eustachian tube dysfunction on the left and stable hearing loss. Treated with 1% cortisone ointment 03/09/2024 patient seen to have otitis externa without any erythema. No fungals for seen. Treated with antibiotic cortisone drops 03/13/2024 diagnosed at urgent care with eustachian tube dysfunction and sinusitis. Treated with Augmentin 03/21/2024 left ear had otorrhea thought secondary to tube. Quite yellow debris was suctioned from the canal. Some granulation tissue around the tube. 03/29/2024 still having whitish yellowish exudate in the middle ear. The tube was removed due to granulation tissue around it. Treated with topical triamcinolone drops 03/31/2024, today, patient reports he is feeling worse with worsening ear pain, ear plugging, vertigo associated with nausea and vomiting. Less drainage from the ear. No fever. Poorly tolerated the drops and not using them consistently. Reports prominent anxiety exacerbated by the vertigo and headache and plugging of his ear. Frequently using hydroxyzine 25 mg to help with a his anxiety and panic attacks. Review of Systems Narrative: Patient reports no other symptoms of illness except as noted above. He reports that he is unable to sleep supine because of increased pressure in the left ear. He has been primarily sitting up when he sleeps in a recliner to help with that. Ongoing problems with vertigo and with the vertigo nausea and vomiting. He is having ongoing significant problems with anxiety and panic attacks which she is self medicating with hydroxyzine 25 mg as needed. [facility] Medical History (Updated 03/31/24 @ 17:59 by Kory Montoya MD) Vertigo ?R42 - Dizziness and giddiness (ICD-10) Acute left otitis media ?H66.92 - Otitis media, unspecified, left ear (ICD-10) Otorrhea, left ear ?H92.12 - Otorrhea, left ear (ICD-10) Mastoiditis ?H70.90 - Unspecified mastoiditis, unspecified ear (ICD-10) Mixed hyperlipidemia ?E78.2 - Mixed hyperlipidemia (ICD-10) Type 2 diabetes mellitus, with long-term current use of insulin ?E11.9 - Type 2 diabetes mellitus without complications (ICD-10) ?Z79.4 - intermediate accountant (current) use of insulin (ICD-10) Primary hypertension ?I10 - Essential (primary) hypertension (ICD-10) Lightheadedness ?R42 - Dizziness and giddiness (ICD-10) BPH (benign prostatic hyperplasia) ?N40.0 - Benign prostatic hyperplasia without lower urinary tract symptoms (ICD-10) Cardiovascular disease ?I25.10 - Atherosclerotic heart disease of [place] coronary artery without angina pectoris (ICD-10) Peripheral vascular disease ?I73.9 - Peripheral vascular disease, unspecified (ICD-10) Peripheral neuropathy ?G62.9 - Polyneuropathy, unspecified (ICD-10) Hypertensive kidney disease, stage III ?I12.9 - Hypertensive chronic kidney disease with stage 1 through stage 4 chronic kidney disease, or unspecified chronic kidney disease (ICD-10) ?N18.30 - Chronic kidney disease, stage 3 unspecified (ICD-10) Paroxysmal atrial fibrillation ?I48.0 - Paroxysmal atrial fibrillation (ICD-10) Health care directive on file ?Z78.9 - Other specified health status (ICD-10) CVA (cerebral vascular accident) ?I63.9 - Cerebral infarction, unspecified (ICD-10) Non-pressure chronic ulcer of other part of right foot with fat layer exposed ?L97.512 - Non-pressure chronic ulcer of other part of right foot with fat layer exposed (ICD-10) Diabetic nephropathy associated with type 2 diabetes mellitus (11/11/16) ?E11.21 - Type 2 diabetes mellitus with diabetic nephropathy (ICD-10) Degeneration of intervertebral disc of lumbar region (08/25/18) ?M51.36 - Other intervertebral disc degeneration, lumbar region (ICD-10) Surgical History Hx of appendectomy ?Z90.49 - Acquired absence of other specified parts of digestive tract (ICD- 10) History of amputation of toe ?Z89.429 - Acquired absence of other toe(s), unspecified side (ICD-10) Carpal tunnel syndrome of right wrist ?G56.01 - Carpal tunnel syndrome, right upper limb (ICD-10) Family History Father Stroke High blood pressure Parkinson disease Mother Type 2 diabetes mellitus History of adrenal cancer Brother Type 2 diabetes mellitus Social History (Updated 03/31/24 @ 17:53 by Kory Montoya MD) Narrative: , 2 kids, nonsmoker, no alcohol. Lives with his . is healthcare power of employment law attorney. Code status is full. Does not smoke. He rarely drinks alcohol. 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 What is your current living situation?: I presently have a place to live Problems where you live: no known problems and declined to answer Problems where you live details: none In the past 12 months, utilities in danger of being shut off: no In past 12 months, lack of transportation kept you from medical appts, meetings, work, or getting things needed for daily living: no In the past 12 mos, have been you worried that your food would run out before you had money to buy more?: never true In the past 12 mos, the food you bought just didn't last and you didn't have money to buy more?: never true Highest level of school completed/degree received: Associate degree: occupational, technical, vocational program Smoking Status: Former smoker Do you use any of these nicotine containing products: None How often do you have a drink containing alcohol: monthly or less Alcohol type: beer How many standard drinks containing alcohol do you have on a typical day: 1 or 2 How often do you have six or more drinks on one occasion: Never AUDIT-C Alcohol total score: 1 Non-prescribed substance use: denies use Caffeine: Yes (COFFEE DAILY 1 POT) How often does anyone, including family, friends and others, physically hurt you : never How often does anyone, including family, friends and others, insult or talk down to you: never How often does anyone, including family, friends and others, threaten you with harm: never How often does anyone, including family, friends and others, scream or curse at you: never Little interest or pleasure in doing things: nearly every day Feeling down, depressed, or hopeless: not at all service: No Meds Home Medications and Allergies Home Medications ?Medication ?Instructions ?Recorded ?Confirmed ?Type aspirin 81 mg tablet,delayed 81 mg PO QDAY 04/19/23 03/31/24 History release ciprofloxacin 0.3 %-dexamethasone 6 drp otic (ear) HS PRN 01/17/24 03/31/24 History 0.1 % ear drops,suspension cetirizine 10 mg tablet 10 mg PO .2-3X/DAY 03/13/24 03/31/24 History candesartan 8 mg tablet 8 mg PO HS 03/31/24 03/31/24 History fluticasone propionate 50 2 spray intranasal .2-3X/DAY 03/31/24 03/31/24 History mcg/actuation nasal spray,suspension insulin glargine 100 unit/mL (3 55 unit subcut HS 03/31/24 03/31/24 History mL) subcutaneous pen (Basaglar KwikPen U-100 Insulin) Allergies Allergy/AdvReac Type Severity Reaction Status Date / Time candesartan Allergy Mild dizzy Verified 03/29/24 10:23 Cephalosporins Allergy Unknown Verified 03/29/24 10:23 chlorthalidone Allergy Unknown Unknown Verified 03/29/24 10:23 clotrimazole Allergy Unknown Verified 03/29/24 10:23 lisinopril Allergy Unknown Verified 03/29/24 10:23 methocarbamol Allergy Unknown Unknown Verified 03/29/24 10:23 [id number] Reductase Allergy Verified 03/29/24 10:23 Inhibitor Exam Narrative: Exam Narrative: He is alert appears in no distress. Right pinna and external canal are normal. Right TM is normal. Minimal cerumen. No erythema. Left pinna appears normal. Left external canal has very mild swelling but is quite patent. There is a whitish color to the external auditory canal skin suggesting moisture and possibly recent otorrhea. No marked cerumen. He did not tolerate examination to inspect the tympanic membrane. Palpation around the ear is mildly tender. Oropharynx with small airway. Neck is supple without mass or adenopathy. He has some mild tenderness in the anterior cervical chain without adenopathy. Respirations are clear to auscultation. Cardiovascular: S1, S2, regular rate and rhythm. Abdomen is soft without tenderness or mass. Extremities are normal. He has diminished sensation especially in his right foot but to a lesser degree in his left foot. He has had a right great toe amputation. Intact pedal pulses. No open skin lesions. 2+ edema bilaterally. Const: Vital Signs, click to edit/add: Vital Signs - 24 hr 03/31/24 10:35 03/31/24 14:02 03/31/24 16:31 Temperature 97.3 F L 98.3 F Pulse Rate [Pulse Oximeter] 78 79 102 H Respiratory Rate 18 20 20 Blood Pressure [Ri ght Arm] 205/118 H Blood Pressure [Ri ght Upper Arm] 199/94 H 200/102 H Pulse Oximetry 97 98 95 Oxygen Delivery Me thod Room Air Room Air Room Air 03/31/24 17:01 Temperature Pulse Rate [Pulse Oximeter] Respiratory Rate 20 Blood Pressure [Ri ght Arm] Blood Pressure [Ri ght Upper Arm] Pulse Oximetry 93 Oxygen Delivery Me thod Room Air Documenting provider has reviewed patient's vital signs: yes Hospitalist - H&P: Result Labs Labs: Short CBC 03/31/24 Range/Units 12:00 WBC 6.78 (4.50-11.00) K/uL Hgb 11.1 L (13.5-17.5) gm/dL Hct 32.7 L (37.0-53.0) % Plt Count 155 (140-440) K/uL BMP 03/31/24 12:22 Sodium 140 Potassium 5.1 Chloride 105 Carbon Dioxide 21 BUN 30 Creatinine 1.7 H Glucose 413 H* Calcium 9.[address] temporal bones: Radiologist's impression: NDICATION: Vertigo, left ear pain TECHNIQUE: CT of the temporal bones without contrast. Coronal and axial small field of view reconstructions of both temporal bones are included. COMPARISON: CT head 03/31/2024, 11/18/2023, CT temporal bone 10/19/2023 FINDINGS: RIGHT temporal bone: Normal periauricular soft tissues. Normal external auditory canal. Normal tympanic membrane. Clear middle ear and mastoid air cells. Normal ossicular chain. Normal facial nerve canal. Normal mineralization of the otic capsule. Normal cochlea, vestibule, and vestibular aqueduct. Redemonstration of thin bony roof overlying the superior semicircular canal. Normal internal auditory canal. Normal carotid canal and jugular fossa. LEFT temporal bone: Mild circumferential mucosal thickening and trace debris/cerumen throughout the external auditory canal, progressed relative to 10/19/2023. Large middle ear and mastoid effusions, with near-complete low-attenuation opacification. No suspicious fluid collections identified in the periauricular soft tissues. No aggressive bony erosions identified. Sharp bony scutum. Intact ossicular chain. Preserved mastoid septae. Unremarkable facial nerve canal. Normal cochlea, vestibule, and vestibular aqueduct. Redemonstration of thin bony roof overlying the superior semicircular canal. Normal internal auditory canal. Normal carotid canal and jugular fossa. Other structures: Lobulated mucosal thickening throughout the left posterior ethmoid air cells. No sinonasal air-fluid level. Orbits are unremarkable for technique. Intracranial structures are detailed in a separate report. IMPRESSION: 1. Large left-sided middle ear and mastoid effusions, progressed relative to 10/19/2023, and compatible with otomastoiditis. 2. Progressive circumferential mucosal thickening throughout the left external auditory canal, presumably reactive. 3. No aggressive bony erosions identified. No suspicious fluid collections are seen in the periauricular soft tissues. 4. Thin appearance of the bony roof overlying the bilateral superior semicircular canals. Consider correlation for potential superior semicircular canal dehiscence syndrome. 5. Otherwise, unremarkable CT of the right temporal bone. Assessment and Plan Assessment and plan (1) Mastoiditis: Problem comment: Initiate treatment with Zosyn for typical respiratory pathogens and Pseudomonas. Test for MRSA and treat accordingly. Ciprodex drops to continue. Empiric trial of Diflucan orally with history of fungal otitis externa and intolerance of topical treatment Status: Acute (2) Otorrhea, left ear: Status: Acute (3) Acute left otitis media: Status: Acute (4) Nausea and vomiting: Problem comment: Secondary to vertigo and left otomastoiditis Status: Acute (5) Anxiety: Problem comment: Fairly severe episodes of what sound like panic attacks. Currently treated with hydroxyzine. Consider SSRI for chronic treatment. Status: Acute Plan Patient admitted to the hospital for ongoing treatment of otomastoiditis on the left. IV antibiotics, topical drops, oral anti fungal. Needs symptomatic treatment for severe vertigo nausea and vomiting. ENT consultation done today b y phone. E[facility] follow[facility]up [facility] 4 days. Total Time Spent Total Time Spent: Total time spent today is 90 minutes in coordination of care and discussing with patient, and other providers ongoing evaluation management of acute and chronic left ear problems
[2024-03-31] MEDS: hydrOXYzine pamoate 25 MG CAPSULE PO ×2 (17:26→21:04)
[2024-03-31] MEDS: INSULIN ASPART 100 UNIT/ML SUBCUT (17:36)
[2024-03-31] MEDS: INSULIN ASPART 100 UNIT/ML 20 UNIT SUBCUT (17:37)
--- NOTE | 2024-03-31 18:18 | PC.NURSE ---
End of Shift: Patient pleasant and cooperative.Patient hypertensive but stable, MD aware, lungs clear, BS WNL, IV SL. Patient rates ear pain 2/10. Patient is experiencing dizziness and is anxious. Patient 1 assist/walker. Patient tolerating regular diet and urinating. Blood sugar this evening 389. Patient right great toe amputated.
[2024-03-31 19:00] VITALS: BP 186/95; PULSE 94; RESP 16; TEMP 37; O2SAT 97
[2024-03-31] MEDS: PIPERACILLIN/TAZOBACTAM 3.375 GM in 0.9 % SODIUM CHLORIDE Mini-bag 100 ML IVPB (21:05)
[2024-03-31] MEDS: FLUTICASONE PROPIONATE NASAL 2 SPRAY NOSTRIL-B (21:12)
[2024-03-31] MEDS: SODIUM CHLORIDE 0.9 % (FLUSH) 10 ML SYRINGE 5 ML IVF (21:12)
[2024-03-31 23:00] VITALS: BP 172/97; PULSE 90; RESP 16; TEMP 36.6; O2SAT 97
[2024-03-31] MEDS: 0.9 % SODIUM CHLORIDE 250 ml IV (23:47)
[2024-04-01] MEDS: ONDANSETRON 2 MG/ML inj 4 MG IVP ×3 (00:28→09:40)
[2024-04-01] MEDS: SODIUM CHLORIDE 0.9 % (FLUSH) 10 ML SYRINGE 5 ML IVF ×3 (00:28→20:56)
[2024-04-01] MEDS: hydrOXYzine pamoate 25 MG CAPSULE PO ×6 (01:09→20:47)
[2024-04-01 03:00] VITALS: BP 161/104; PULSE 70; RESP 16; TEMP 36.6; O2SAT 95
[2024-04-01] MEDS: PIPERACILLIN/TAZOBACTAM 3.375 GM in 0.9 % SODIUM CHLORIDE Mini-bag 100 ML IVPB ×4 (03:40→20:53)
--- NOTE | 2024-04-01 06:48 | PC.NURSE ---
Pt is pleasant and cooperative. Pt is alert and oriented. Pt is a heavy 1 assist with GB and W. Pt had an emesis episode after walking to and from the restroom. PRN nausea medication was given per MD orders before going to the bathroom. Pt states that he can feel a fluid shift in his head. Sitting in his chair helps keep the facial pressure down verses the bed. Pt right toe amputated. Pt had high BP throughout the shift, SBP ranging 160-180s. Pt had a PB and J sandwich, broth, and ice chips for the shift after having an emesis episode just before 1900 shift change. Pt denied pain, headache, and SOB. ?
[2024-04-01 07:35] VITALS: BP 168/88; PULSE 75; RESP 16; TEMP 36.8; O2SAT 96
[2024-04-01] MEDS: INSULIN ASPART 100 UNIT/ML 20 UNIT SUBCUT ×3 (07:44→16:52)
[2024-04-01] MEDS: INSULIN ASPART 100 UNIT/ML SUBCUT ×3 (07:45→20:50)
--- NOTE | 2024-04-01 08:11 | PM.IMPN1 ---
Progress Note: A&P Assessment and plan (1) Mastoiditis: Problem details: CT shows Large left-sided middle ear and mastoid effusions, progressed relative to 10/19/2023, and compatible with otomastoiditis. No aggressive bony erosions identified. No suspicious fluid collections are seen in the periauricular soft tissues.Thin appearance of the bony roof overlying the bilateral superior semicircular canals. Consider correlation for potential superior semicircular canal dehiscence syndrome - outpatient follow-up with Dr. Mead Initiate treatment with Zosyn for typical respiratory pathogens and Pseudomonas. MRSA negative. Culture from left ear shows large amount coag negative staph. Ciprodex drops Empiric trial of Diflucan orally with history of fungal otitis externa and intolerance of topical treatment Status: Acute (2) Otorrhea, left ear: Problem details: Management as above Status: Acute (3) Acute left otitis media: Problem details: Management as above Including continuation of home medications, antihistamine, steroids Status: Acute (4) Nausea and vomiting: Problem details: Secondary to vertigo and left otomastoiditis Antiemetics as needed PT to assess Status: Acute (5) Anxiety: Problem details: Fairly severe episodes of what sound like panic attacks. Currently treated with hydroxyzine. Consider SSRI for chronic treatment. Continuing home medications Status: Acute (6) Type 2 diabetes mellitus, with long-term current use of insulin: Problem details: Most recent A1c 8.7 Usual home dose glargine 55 units at bedtime, NovoLog 20 units t.i.d. with meals. Stopped semaglutide several months ago During hospital course, glucose checks ACHS, Levemir 30 units b.i.d., aspart 20 units t.i.d. with meals, insulin sliding scale Status: Acute (7) Primary hypertension: Problem details: Continue candesartan Patient has not yet started ezetimibe for hyperlipidemia Status: Acute (8) Hypertensive kidney disease, stage III: Problem details: Creatinine 1.7, baseline 1.5-1.8, avoid nephrotoxic medications, continue to monitor Status: Acute Plan Continue IV antibiotics, monitoring clinical improvement, with plan to discharge on oral antibiotics, possible 1-2 days Time Spent With Patient Total time spent: Total time spent caring for the patient today was 45 minutes. This includes time spent for the visit reviewing the chart, time spent during the visit, time spent after the visit and documentation and planning in coordination of care. Subjective Date Seen: 04/01/24 Interval history: Patient reports feeling better this morning. Dizziness is still present but improved. Able to sit up in a chair and eat without feeling nauseous or vomiting. Still has to turn head slowly to prevent vertigo like symptoms. Denies headache. Reports pain over scalp behind both ears has been chronic for years. Sunglasses or eyeglasses rub and irritate. Denies chest pain or shortness of breath. Tolerating orals without nausea vomiting. Exam Narrative: Exam Narrative: PHYSICAL EXAM General: Pleasant, conversant, NAD HEENT: Normocephalic, atraumatic, sclera white, EOMI, oral mucosa moist. Mild lymphadenopathy left postauricular, submandibular Cardiovascular: RRR, S1S2. Pulmonary: CTA bilaterally without rhonchi, rales, expiratory wheezes. No dyspnea Abdominal: Soft, nondistended, NTTP Neurological: Alert, answering questions appropriately, cranial nerves intact, no focal findings Extremities: No gross joint deformity or swelling. AROMI. Neurovascularly intact Skin: Warm, dry. Const: Vital Signs, click to edit/add: Vital Signs - 24 hr 03/31/24 10:35 03/31/24 14:02 03/31/24 16:31 Temperature 97.3 F L 98.3 F Pulse Rate [Pulse Oximeter] 78 79 102 H Respiratory Rate 18 20 20 Blood Pressure [Le ft Ar,] Blood Pressure [Ri ght Arm] 205/118 H Blood Pressure [Ri ght Upper Arm] 199/94 H 200/102 H Pulse Oximetry 97 98 95 Oxygen Delivery Me thod Room Air Room Air Room Air 03/31/24 17:01 03/31/24 19:00 03/31/24 23:00 Temperature 98.6 F Pulse Rate [Pulse Oximeter] 94 Respiratory Rate 20 16 16 Blood Pressure [Le ft Ar,] Blood Pressure [Ri ght Arm] 186/95 H Blood Pressure [Ri ght Upper Arm] Pulse Oximetry 93 97 Oxygen Delivery Ma thod Room Air Room Air 03/31/24 23:00 04/01/24 03:00 04/01/24 07:35 Temperature 97.9 F 97.9 F 98.2 F Pulse Rate [Pulse Oximeter] 90 70 75 Respiratory Rate 16 16 16 Blood Pressure [Le ft Ar,] 168/88 H Blood Pressure [Ri ght Arm] 172/97 H 161/104 H Blood Pressure [Ri ght Upper Arm] Pulse Oximetry 97 95 96 Oxygen Delivery Me thod Room Air Room Air Room Air Labs Labs: Laboratory Results - last 24 hr 03/31/24 03/31/24 12:00 12:22 WBC 6.78 RBC 3.51 L Hgb 11.1 L Hct 32.7 L MCV 93 MCH 32 MCHC 34 RDW Coeff of Isac 13.0 Plt Count 155 Neut % (Auto) 88.4 H Lymph % (Auto) 7.5 L [place] % (Auto) 3.4 Eos % (Auto) 0.3 Baso % (Auto) 0.1 Neut # (Auto) 6.00 Lymph # (Auto) 0.50 L [place] # (Auto) 0.20 Eos # (Auto) 0.02 Baso # (Auto) 0.01 Abs Immat Gran (auto) 0.02 Imm/Tot Granulo (auto) 0.3 ESR 28 H VBG pH 7.326 VBG pCO2 45 VBG pO2 < 30.1 VBG HCO3 24 Sodium 140 Potassium 5.1 Chloride 105 Carbon Dioxide 21 Anion Gap 14 BUN 30 Creatinine 1.7 H Estimated Creat Clear 48.60 Estimated GFR 45 Glucose 413 H* Calcium 9.7
[2024-04-01] MEDS: CETIRIZINE HCL 10 MG TABLET PO (09:07)
[2024-04-01] MEDS: FLUCONAZOLE 100 MG TABLET 200 MG PO (09:07)
[2024-04-01] MEDS: FLUTICASONE PROPIONATE NASAL 2 SPRAY NOSTRIL-B ×3 (09:09→20:45)
[2024-04-01 11:07] VITALS: BP 196/101; PULSE 91; RESP 16; TEMP 36.4; O2SAT 97
[2024-04-01] MEDS: ACETAMINOPHEN 325 MG TABLET 650 MG PO ×2 (14:40→20:48)
[2024-04-01 15:14] VITALS: BP 201/109; PULSE 89; RESP 14; TEMP 36.6; O2SAT 96
--- NOTE | 2024-04-01 17:58 | PC.NURSE ---
End of Shift: Patient pleasant and cooperative. Patient hypertensive but stable, lungs clear, BS WNL, IV SL. Patient rates ear pain 1-/, tylenol was given once for back discomfort. Zophran given once to prevent emesis before ambulation. Patient tolerating regular diet, urinating, and had 3 BMs today, two which were loose. Blood sugars 222, 386, and 144. Patient 1 assist/walker.
[2024-04-01 19:00] VITALS: BP 194/107; PULSE 89; RESP 16; TEMP 37.2; O2SAT 97
[2024-04-01 22:30] VITALS: BP 196/91; PULSE 75; RESP 16; TEMP 36.4; O2SAT 96
[2024-04-02] MEDS: hydrOXYzine pamoate 25 MG CAPSULE PO ×3 (00:43→08:44)
[2024-04-02 03:00] VITALS: BP 167/99; PULSE 80; RESP 14; TEMP 36.4; O2SAT 94
[2024-04-02] MEDS: PIPERACILLIN/TAZOBACTAM 3.375 GM in 0.9 % SODIUM CHLORIDE Mini-bag 100 ML IVPB ×2 (03:30→09:40)
--- NOTE | 2024-04-02 05:41 | PC.NURSE ---
Addendum entered by Jessica Sanon RN 04/02/24 06:05: Pt notified RN of dexcom stating BGs low. Pts dexcom read 69, RN compared with hospital glucometer which read 86. One hour later dexcom alarmed pt and showed 69, RN compared with hospital glucometer which read 91. Pt asymptomatic. Original Note: Upon initial assessment Pt verbalized back pain and ear pain, scaled 3/10, PRN pain medication was given. Pt was pleasant and cooperative. Lungs clear. Hypertensive BPs, but stable. IV SL. Pt had blood sugars of 254, 86, 91, and 195. Pt was given PB&J, juice, and ice cream?during low blood sugars. ?Pt has had loose stools and diarrhea throughout the shift. Pt tolerating activity and regular diet well. Pt experiences dizziness during activity but improving. Pt is an assistx1, GB and W. ? ?
[2024-04-02] MEDS: INSULIN ASPART 100 UNIT/ML 20 UNIT SUBCUT (07:31)
[2024-04-02] MEDS: INSULIN ASPART 100 UNIT/ML SUBCUT (07:32)
[2024-04-02 08:03] LABS: Hematocrit 53.9 % (37.0-53.0); Hemoglobin* 18.2 gm/dL (13.5-17.5); Mean Corpuscular HGB Conc 34 gm/dL (32-36); Mean Corpuscular Hemoglobin 31 pg (26-34); Mean Corpuscular Volume 91 fL (80-100); Platelet Count* 160 K/uL (140-440); Red Blood Count 5.93 m/uL (4.30-5.90); Slide Review Reflex No; White Blood Count* 5.33 K/uL (4.50-11.00)
[2024-04-02 08:25] LABS: Anion Gap 8 mEq/L (7-15); Carbon Dioxide* 27 mmol/L (20-32); Chloride* 108 mmol/L (96-114); Sodium* 143 mmol/L (135-149)
[2024-04-02 08:26] LABS: Blood Urea Nitrogen* 26 mg/dL (7-30); Calcium* 9.2 mg/dL (8.4-10.6); Est. Creatinine Clearance* 41.31; Estimated Glomerular Filt Rate 37 ml/min; Glucose* 179 mg/dL (60-115)
[2024-04-02] MEDS: CETIRIZINE HCL 10 MG TABLET PO (08:42)
[2024-04-02] MEDS: FLUTICASONE PROPIONATE NASAL 2 SPRAY NOSTRIL-B (08:42)
[2024-04-02] MEDS: FLUCONAZOLE 100 MG TABLET 200 MG PO (08:42)
[2024-04-02] MEDS: SODIUM CHLORIDE 0.9 % (FLUSH) 10 ML SYRINGE 5 ML IVF (08:43)
[2024-04-02 08:46] VITALS: BP 204/80; PULSE 106; RESP 16; TEMP 36.9; O2SAT 97
[2024-04-02 11:00] VITALS: BP 208/120; PULSE 91; RESP 16; TEMP 36.5; O2SAT 97
--- NOTE | 2024-04-02 12:33 | PC.NURSE ---
Discharge: Patient pleasant, cooperative, but unhappy this AM, telling RN upon entering room for the first time that he will not be taking his night time short acting insulin as his blood sugar dropped last night. This proposal manager writer, given in report this morning by retail shift supervisor nurses patient's blood sugars with hospital glucometer were 254, 86, 91, and 195. RN explained that if he did not want to take that medication, which will be administer by retail shift supervisor RNs, he did not have too. Sliver Handler also explained he could discuss his insulin with the MD when MD rounds. Patient later communicated to RED LEAD BURNER that he would not be taking any of his morning meds until the MD rounded on him. Patient did express today to RN at discharge he was unhappy with his care here and that he felt worse off then when he was admitted, RN wrote this down for him on the patient's signature discharge form. A copy was given to them upon their request. Throughout patients stay patient would constantly question when he would get his medications and patient would get irritable when he could not take certain medications as often as he would at home. It was explained to patient several times that in the hospital medication administration is more strict in the hospital and that RN has to abide by MD orders. Sliver Handler would repeatedly explain medications and times they would be administered, today proposal manager writer wrote down patients medications and times on room white board to help patient's understanding. Patient has been anxious throughout his hospital stay and expressed he wouldn't be here if he didn't need IV antibiotics. Patient vitally stable, lungs clear, BS WNL, IV removed, catheter intact. Patient rates ear pain at most 4/10. Patient SBA/walker. Morning blood sugar 169. Tolerating regular diet and urinating well. Patient's signed belongings sheet and patient signed discharge form. Patient left the floor to home by wheelchair at 1228.
--- NOTE | 2024-04-02 16:05 | P.DS_ITS ---
DS: Providers Provider Date Seen: 04/02/24 Date of admission: 03/31/24 16:32 Primary care physician: Joss Manning MD Admitting Clinician: Kory Montoya MD Consults: 04/01/24 12:03 Consult to Physical Therapy [CONS] Routine Comment: Reason(s) for PT Consult:: Evaluate and Treat Any Restrictions?:: No Restrictions Attending Physician on discharge[facility] Date [facility]charge: 04/02/24 DS: Diagnosis Discharge Diagnosis (1) Mastoiditis: Status: Acute Problem details: CT shows Large left-sided middle ear and mastoid effusions, progressed relative to 10/19/2023, and compatible with otomastoiditis. No aggressive bony erosions identified. No suspicious fluid collections are seen in the periauricular soft tissues.Thin appearance of the bony roof overlying the bilateral superior semicircular canals. Consider correlation for potential superior semicircular canal dehiscence syndrome - outpatient follow-up with Dr. Mead Initiate treatment with Zosyn for typical respiratory pathogens and Pseudomonas. MRSA negative. Culture from left ear shows large amount coag negative staph. Ciprodex drops as needed though patient reports adverse side effects with these drops. Empiric trial of Diflucan orally with history of fungal otitis externa and intolerance of topical treatment - discontinued prior to discharge, defer to ENT for which he has an appointment on Wednesday 04/04. On 04/02, patient was adamant about being discharged to home, being unhappy with current cares in the hospital. Discussed recommended appropriate management with IV antibiotics for otomastoiditis. As patient was not interested in remaining in the hospital, he is discharged on oral ciprofloxacin, renally dosed, as discussed with pharmacist. He does have an ENT appointment at [place] on Wednesday 04/04 for close follow-up. (2) Otorrhea, left ear: Status: Acute Problem details: Management as above. Patient declined ear drops as he has had adverse reactions to these in the past. Outpatient follow-up with ENT. (3) Acute left otitis media: Status: Acute Problem details: Management as above Including continuation of home medications, antihistamine, steroids. Outpatient follow-up with ENT (4) Nausea and vomiting: Status: Acute Problem details: Secondary to vertigo and left otomastoiditis, improving after initiation of IV antibiotics. PT did assessed, noticing some right nystagmus without fatigue. Discussed course of cares if recurrence. Resolved prior to discharge. (5) Anxiety: Status: Acute Problem details: Fairly severe episodes of what sound like panic attacks. Currently treated with hydroxyzine. Consider SSRI for chronic treatment. Continuing home medications Suspect this is what drove his request to be discharged from the hospital rather than remaining for IV antibiotics. Recommend outpatient follow-up with PCP for ongoing management. (6) Type 2 diabetes mellitus, with long-term current use of insulin: Status: Acute Problem details: Most recent A1c 8.7 Usual home dose glargine 55 units at bedtime, NovoLog 20 units t.i.d. with meals. Stopped semaglutide several months ago During hospital course, glucose checks ACHS, Levemir 30 units b.i.d., aspart 20 units t.i.d. with meals, insulin sliding scale Despite hospital protocol, patient unhappy with management of diabetes during hospital course, demanding to be discharged. Recommend outpatient follow-up with PCP. (7) Primary hypertension: Status: Acute Problem details: Continue candesartan (though he does have an adverse reaction listed in his EMR as dizziness) Patient has not yet started ezetimibe for hyperlipidemia (8) Hypertensive kidney disease, stage III: Status: Acute Problem details: Creatinine 1.7, baseline 1.5-1.8. This did trend up to 2.0 on day of discharge, in setting of IV antibiotics. Oral antibiotics are renally dosed after discussion with pharmacy. Patient was made aware of his creatinine level and need for recheck with his PCP. DS: Summary Hospital Course Hospital Course: [age] year old male was admitted to the medical floor for IV management otomastoiditis, acute on chronic, failed outpatient therapy. Course of care and details as noted above. On day 3 of hospitalization, 04/02/2024, nursing and other staff brought to my attention that patient was upset with his current hospital stay and cares and demanding to see me and be released from the hospital despite any recommendations I may have. Upon entering his room and greeting him, patient immediately demanded to know what kind of schedule we run at this hospital and informed me he would have been taken from here in a bag last night if it was not for his own glucometer. After calling attention to his rudeness and unnecessary need to direct his anger towards me, I was able to clarify with him that his expectations were to have his medications given to him on his time schedule rather than the normal hospital scheduled time for passing medications, which is 9:00 a.m.. For example, he told me his head immediately becomes congested if he does not get his antihistamine at exactly 7:00 a.m.. As for leaving in a bag, he was unhappy that he received additional insulin according to the insulin sliding scale at bedtime last night causing his glucose to drop to 86-91 (which is not life-threatening but I did not address this with them as he was so angry). He was further unhappy that we did not have his glargine insulin available at this facility and were instead using Levemir. He then went on to attempt to tell me that the daytime nurses were inadequate but that he had no problems with the nighttime nurses. I told him I would not take complaints about our staff directly and that he could instead discuss this with a patient advocate this week. In order to deflect his anger, I reassured him that he could be discharged today to home on an oral antibiotic with close outpatient follow-up with ENT which had already been scheduled for Wednesday. This would alleviate his Angst about being unable to use his own home medications and be able to take them on his own schedule. He again attempted to complain about the day staff nurses and I again shut this down, referring him to a patient advocate. He had several complaints about side effects of medications previously prescribed to him outside of this hospitalization. I advised he follow-up with his PCP for ongoing medication management. He also had complaints about Dr. Mead which I also deflected, referring him to a patient advocate. Prior to discharge, I reviewed his current labs including the culture from his ear which was growing coag-negative staph, his creatinine which had trended up to 2.0. Recommended outpatient follow-up with ENT as well as his PCP. As for his diabetes management, he will continue with his home glucometer, home insulin. If at all possible, patient would benefit from some form of mood management though my guess is he would not be open to this. Remainder of chronic medical comorbidities were monitored and managed with home medications. Status at Discharge Overall status at discharge: patient is back to baseline Time Spent with Patient Time attestation: Total time spent providing and/or coordinating discharge services: Time spent: Greater than 30 minutes Exam Narrative: Exam Narrative: PHYSICAL EXAM General: Pleasant, conversant, NAD Cardiovascular: RRR Pulmonary: No dyspnea Neurological: Alert, answering questions appropriately Skin: Warm, dry. Const: Vital Signs, click to edit/add: Vital Signs - 24 hr 04/01/24 19:00 04/01/24 22:30 04/02/24 03:00 Temperature 99 F 97.5 F L 97.6 F Pulse Rate [Pulse Oximeter] 89 75 80 Respiratory Rate 16 16 14 Blood Pressure [Le ft Ar,] 194/107 H 196/91 H 167/99 H Pulse Oximetry 97 96 94 Oxygen Delivery Me thod Room Air Room Air Room Air 04/02/24 08:46 04/02/24 08:46 04/02/24 11:00 Temperature 98.5 F 97.7 F Pulse Rate [Pulse Oximeter] 106 H 106 H 91 Respiratory Rate 16 16 16 Blood Pressure [Le ft Ar,] 204/80 H 208/120 H Pulse Oximetry 97 97 Oxygen Delivery Me thod Room Air Room Air DS: Data Data Completed and Pending Labs on day of discharge: Labs from last 24 hours 04/02/24 06:51 WBC 5.33 RBC 5.93 H Hgb 18.2 H Hct 53.9 H MCV 91 MCH 31 MCHC 34 Plt Count 160 Sodium 143 Potassium 4.0 Chloride 108 Carbon Dioxide 27 Anion Gap 8 BUN 26 Creatinine 2.0 H Estimated Creat Clear 41.31 Estimated GFR 37 Glucose 179 H Calcium 9.2 Discharge Plan Discharge Disposition: Home, Self-Care Date of Admission: 03/31/24 16:32 Attending Provider on Discharge: Diane Allen Primary Care Provider: Joss Manning Condition: Stable Anticipated Discharge Date/Time: 04/02/24 11:23 Discharge Medications: New ciprofloxacin HCl 500 mg tablet 500 mg PO BID Qty: 20 0RF Continued ciprofloxacin-dexamethasone 0.3-0.1 % drops,suspension 6 drp otic (ear) HS PRN Patient Comments: PT STATES ONLY TAKING AT HS PRN, CAUSES HIM TO LOSE VISION hydroxyzine pamoate 25 mg capsule 25 - 50 mg PO TID Qty: 90 5RF cetirizine 10 mg tablet 10 mg PO .2-3X/DAY Rx Instructions: PT STATES TAKING 2 TO 3 TIMES PER DAY fluticasone propionate 50 mcg/actuation spray,suspension 2 spray intranasal .2-3X/DAY Rx Instructions: PT STATES USING 2 TO 3 TIMES PER DAY administer into each nostril insulin glargine [Basaglar KwikPen U-100 Insulin] 100 unit/mL (3 mL) insulin pen 55 unit subcut HS candesartan 8 mg tablet 8 mg PO HS (DME) FreeStyle Carmina 2 Sensor Kit See Rx Instructions .ROUTE .MEDSUPPLY Qty: 6 3RF Rx Instructions: As directed (DME) FreeStyle Carmina 2 [place] Misc See Rx Instructions .Route Qty: 1 0RF Rx Instructions: As directed (DME) pen needle, diabetic [BD Ultra-Fine Short Pen Needle] 31 gauge x 5/16 needle See Rx Instructions .ROUTE .COMPLEX Qty: 300 0RF Dose Instruction: USE 1 4 TIMES DAILY Rx Instructions: USE 1 4 TIMES DAILY insulin aspart U-100 [Novolog FlexPen U-100 Insulin] 100 unit/mL (3 mL) insulin pen 20 unit subcut TID Qty: 30 2RF (DME) OneTouch Ultra Test Strip See Rx Instructions .Route Qty: 200 2RF Rx Instructions: As directed, tests BID ezetimibe [Zetia] 10 mg tablet 10 mg PO QDAY Qty: 30 5RF Discontinued aspirin 81 mg tablet,delayed release (DR/EC) 81 mg PO QDAY triamcinolone acetonide 0.1 % lotion See Rx Instructions .ROUTE .COMPLEX Qty: 60 0RF Rx Instructions: 2 drops to left ear daily for 7 days; semaglutide 1 mg/dose (4 mg/3 mL) pen injector 1 mg subcut QWEEK Qty: 3 3RF Discharge Orders: Discharge Order (Routine); Ordered 04/02/24 Ordered By: Diane Allen Patient Education: Ciprofloxacin (By mouth), Vertigo (GEN), Mastoiditis (GEN) Additional Instructions: Take Cipro twice daily for your otomastoiditis. Follow up with [facility] on Wednesday as previously scheduled for further management recommendations. Follow up with your PCP. You should have your kidney functions rechecked. Activity Level: No Restrictions Discharge Diet: Diabetic Follow Up Appointments: Joss Manning MD [Primary Care Provider] - (post hospital follow up 5-7 days- Patient will make his own appointment.) Forms: [facility] [employer] Info Instructions
--- NOTE | 2024-04-03 23:21 | ED_ITS ---
HPI - General Adult General Date Seen: 03/31/24 Chief complaint: Dizziness/Vertigo Stated complaint: post surgical - vomiting, nausea Time Seen by Provider: 03/31/24 10:55 History of Present Illness HPI narrative: This note is an addendum to my ER note from the patient's ER visit on 03/31/2024. I inadvertently omitted my physical exam from the previous note. Related Data Home Medications ?Medication ?Instructions ?Recorded ?Confirmed ciprofloxacin 0.3 %-dexamethasone 6 drp otic (ear) HS PRN 01/17/24 03/31/24 0.1 % ear drops,suspension cetirizine 10 mg tablet 10 mg PO .2-3X/DAY 03/13/24 03/31/24 candesartan 8 mg tablet 8 mg PO HS 03/31/24 03/31/24 fluticasone propionate 50 2 spray intranasal .2-3X/DAY 03/31/24 03/31/24 mcg/actuation nasal spray,suspension insulin glargine 100 unit/mL (3 55 unit subcut HS 03/31/24 03/31/24 mL) subcutaneous pen (Basaglar KwikPen U-100 Insulin) Previous Rx's ?Medication ?Instructions ?Recorded flash glucose sensor (FreeStyle #6 ea 06/15/23 Carmina 2 Sensor kit) flash glucose scanning reader #1 ea 10/18/23 (FreeStyle Carmina 2 Maxatawny) pen needle, diabetic 31 gauge x #300 ea 03/03/24/16 (BD Ultra-Fine Short Pen Needle) insulin aspart U-100 100 unit/mL 20 unit (0.2 mL) subcut TID #30 mL 03/14/24 (3 mL) subcutaneous pen (Novolog FlexPen U-100 Insulin aspart) blood sugar diagnostic (BlueknowTouch #200 ea 03/15/24 Ultra Test strips) hydroxyzine pamoate 25 mg capsule 25 - 50 mg (1 - 2 x 25 mg) PO TID 03/20/24 #90 caps ezetimibe 10 mg tablet (Zetia) 10 mg PO QDAY #30 tabs 03/21/24 ciprofloxacin HCl 500 mg tablet 500 mg PO BID #20 tabs 04/02/24 Allergies Allergy/AdvReac Type Severity Reaction Status Date / Time candesartan Allergy Mild dizzy Verified 03/29/24 10:23 Cephalosporins Allergy Unknown Verified 03/29/24 10:23 chlorthalidone Allergy Unknown Unknown Verified 03/29/24 10:23 clotrimazole Allergy Unknown Verified 03/29/24 10:23 lisinopril Allergy Unknown Verified 03/29/24 10:23 methocarbamol Allergy Unknown Unknown Verified 03/29/24 10:23 Acrygka-ZNV-BsI Reductase Allergy Verified 03/29/24 10:23 Inhibitor PFSH [facility] Medical History (Updated 04/02/24 @ 16:12 by Diane Allen PA-C) Vertigo ?R42 - Dizziness and giddiness (ICD-10) Acute left otitis media ?H66.92 - Otitis media, unspecified, left ear (ICD-10) Otorrhea, left ear ?H92.12 - Otorrhea, left ear (ICD-10) Mastoiditis ?H70.90 - Unspecified mastoiditis, unspecified ear (ICD-10) Mixed hyperlipidemia ?E78.2 - Mixed hyperlipidemia (ICD-10) Type 2 diabetes mellitus, with long-term current use of insulin ?E11.9 - Type 2 diabetes mellitus without complications (ICD-10) ?Z79.4 - residential (current) use of insulin (ICD-10) Primary hypertension ?I10 - Essential (primary) hypertension (ICD-10) Lightheadedness ?R42 - Dizziness and giddiness (ICD-10) BPH (benign prostatic hyperplasia) ?N40.0 - Benign prostatic hyperplasia without lower urinary tract symptoms (ICD-10) Cardiovascular disease ?I25.10 - Atherosclerotic heart disease of ambler coronary artery without angina pectoris (ICD-10) Peripheral vascular disease ?I73.9 - Peripheral vascular disease, unspecified (ICD-10) Peripheral neuropathy ?G62.9 - Polyneuropathy, unspecified (ICD-10) Hypertensive kidney disease, stage III ?I12.9 - Hypertensive chronic kidney disease with stage 1 through stage 4 chronic kidney disease, or unspecified chronic kidney disease (ICD-10) ?N18.30 - Chronic kidney disease, stage 3 unspecified (ICD-10) Paroxysmal atrial fibrillation ?I48.0 - Paroxysmal atrial fibrillation (ICD-10) Health care directive on file ?Z78.9 - Other specified health status (ICD-10) CVA (cerebral vascular accident) ?I63.9 - Cerebral infarction, unspecified (ICD-10) Non-pressure chronic ulcer of other part of right foot with fat layer exposed ?L97.512 - Non-pressure chronic ulcer of other part of right foot with fat layer exposed (ICD-10) Diabetic nephropathy associated with type 2 diabetes mellitus (11/11/16) ?E11.21 - Type 2 diabetes mellitus with diabetic nephropathy (ICD-10) Degeneration of intervertebral disc of lumbar region (08/25/18) ?M51.36 - Other intervertebral disc degeneration, lumbar region (ICD-10) Surgical History Hx of appendectomy ?Z90.49 - Acquired absence of other specified parts of digestive tract (ICD- 10) History of amputation of toe ?Z89.429 - Acquired absence of other toe(s), unspecified side (ICD-10) Carpal tunnel syndrome of right wrist ?G56.01 - Carpal tunnel syndrome, right upper limb (ICD-10) Family History Father Stroke High blood pressure Parkinson disease Mother Type 2 diabetes mellitus History of adrenal cancer Brother Type 2 diabetes mellitus Social History (Updated 03/31/24 @ 17:53 by Kory Montoya MD) Narrative: , 2 kids, nonsmoker, no alcohol. Lives with his . is healthcare power of immigration attorney. Code status is full. Does not smoke. He rarely drinks alcohol. 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 What is your current living situation?: I presently have a place to live Problems where you live: no known problems and declined to answer Problems where you live details: none In the past 12 months, utilities in danger of being shut off: no In past 12 months, lack of transportation kept you from medical appts, meetings, work, or getting things needed for daily living: no In the past 12 mos, have been you worried that your food would run out before you had money to buy more?: never true In the past 12 mos, the food you bought just didn't last and you didn't have money to buy more?: never true Highest level of school completed/degree received: Associate degree: occupational, technical, vocational program Smoking Status: Former smoker Do you use any of these nicotine containing products: None How often do you have a drink containing alcohol: monthly or less Alcohol type: beer How many standard drinks containing alcohol do you have on a typical day: 1 or 2 How often do you have six or more drinks on one occasion: Never AUDIT-C Alcohol total score: 1 Non-prescribed substance use: denies use Caffeine: Yes (COFFEE DAILY 1 POT) How often does anyone, including family, friends and others, physically hurt you : never How often does anyone, including family, friends and others, insult or talk down to you: never How often does anyone, including family, friends and others, threaten you with harm: never How often does anyone, including family, friends and others, scream or curse at you: never Little interest or pleasure in doing things: nearly every day Feeling down, depressed, or hopeless: not at all service: No Exam Narrative: Exam Narrative: Constitutional: Appears well-developed and well-nourished. Alert. Conversant. Retching into his trash basin on his bed. HENT: Head: Atraumatic. No depressed skull fracture, Raccoon Eyes, Carrero's sign, or hemotympanum. Face normal. Right ear: Pinna, mastoid are normal. Small amount of cerumen in the canal. Visualized TM is normal Left ear: Pinna is not red or inflamed but is very sensitive to touch. Mastoid is not red but is also sensitive to touch. There is copious amounts of whitish debris in the patient's left ear canal. I am not able to see his TM because the canal is occluded by the drainage/debris. Possibly some inflammation of th skin of the external canal, but suspect this drainage may be coming from his TM. Nose: Nose normal. Complaining of facial pain and headache, but sinuses not tender to percussion. Mouth/Throat: Oral mucosa is clear and moist. no trismus. Pharynx normal. Tonsils symmetric. No tonsillar enlargement, erythema, or exudate. Eyes: Horizontal nystagmus with turning his head side to side. No definite vertebral ice diagnose. Initially has difficulty following my extraocular movement instructions to check his eyes, but with coaching he can do it well. Normal EOMs. Conjunctivae normal. EOM normal. Pupils equal, round, and reactive to light. No scleral icterus. Neck: Normal range of motion. Neck supple. No tracheal deviation present. Cardiovascular: Normal rate, regular rhythm. No gallop. No friction rub. No murmur heard. Symmetric radial artery pulses Pulmonary/Chest: Effort normal. No stridor. No respiratory distress. No wheezes. No rales. No rhonchi . No tenderness. Abdominal: Soft. Bowel sounds normal. No distension. No mass. No tenderness. No rebound. No guarding. Musculoskeletal: RUE: Normal range of motion. No tenderness. No deformity LUE: Normal range of motion. No tenderness. No deformity RLE: Normal range of motion. No edema. No tenderness. No deformity LLE: Normal range of motion. No edema. No tenderness. No deformity Neurological: Mental status normal. Attention normal. Alert and oriented x3. GCS 15. Memory normal. Speech fluent. Cognition normal. Cranial Nerves intact II-XII except I did not formally test gag or visual acu ity. EOMI. Palate elevates symmetrically and tongue protrudes in the midline. Strength: 5/5 trapezius on the right and left 5/5 deltoid on the right and left 5/5 biceps on the right and left 5/5 triceps on the right and left 5/5 scientific advisor on the right and left 5/5 thumb opposition on the right and le ft 5/5 finger abduction on the right and le ft 5/5 hip flexors (L3) on the right and le ft 5/5 quadriceps (L4) on the right and lef t 5/5 tibialis anterior on the right and l eft 5/5 EHL (L5) on the right and left 5/5 gastrocnemius (S1) on the right and left 5/5 hamstring on the right and left Sensation intact to light touch in both upper extremities (C4-T1) Sensation intact to light touch in Both lower extremities Finger to nose and coordination normal. I had the patient stand at his bedside but he became quite dizzy. He was able to take up couple of steps but then and to sit down because he was nauseous. Skin: Skin is warm and dry. No rash noted. No pallor. Normal capillary refill. Psychiatric: Normal mood. Anxious. Course Vital Signs Vital signs: Initial Vital Signs Temperature 97.3 F L 03/31/24 10:35 Temperature Source Temporal Artery Scan 03/31/24 10:35 Pulse Rate 78 03/31/24 10:35 Respiratory Rate 18 03/31/24 10:35 Blood Pressure 199/94 H 03/31/24 10:35 Blood Pressure Mean 129 H 03/31/24 10:35 Blood Pressure Position Sitting 03/31/24 10:35 Pulse Oximetry 97 03/31/24 10:35 Oxygen Delivery Method Room Air 03/31/24 10:35 Vital Signs Temperature 97.3 F L 03/31/24 10:35 Pulse Rate 78 03/31/24 10:35 Respiratory Rate 18 03/31/24 10:35 Blood Pressure 199/94 H 03/31/24 10:35 Pulse Oximetry 97 03/31/24 10:35 Oxygen Delivery Method Room Air 03/31/24 10:35 Temperature 97.7 F 04/02/24 11:00 Pulse Rate 91 04/02/24 11:00 Respiratory Rate 16 04/02/24 11:00 Blood Pressure 208/120 H 04/02/24 11:00 Pulse Oximetry 97 04/02/24 11:00 Oxygen Delivery Method Room Air 04/02/24 11:00 Medications Administered Medications: Discontinued Medications Generic Name Dose Route Start Last Admin Trade Name Freq PRN Reason Stop Dose Admin Acetaminophen 650 mg 03/31/24 16:20 04/01/24 20:48 Acetaminophen 325 Mg Tablet PO 650 mg Q4H PRN Administration Cetirizine HCl 10 mg 04/01/24 09:00 04/02/24 08:42 Cetirizine Hcl 10 Mg Tablet PO 10 mg DAILY JUSTO Administration Diazepam 10 mg 03/31/24 13:38 03/31/24 15:01 Diazepam 5 Mg/Ml Inj IV 03/31/24 13:39 Not Given ONCE ONE Fluconazole 200 mg 03/31/24 16:30 03/31/24 17:14 Fluconazole 100 Mg Tablet PO 03/31/24 16:31 200 mg ONCE ONE Administration Fluconazole 200 mg 04/01/24 09:00 04/02/24 08:42 Fluconazole 100 Mg Tablet PO 200 mg DAILY JUSTO Administration Fluticasone Propionate 2 spray 03/31/24 21:00 04/01/24 09:34 Fluticasone Propionate Nasal NOSTRIL-B Not Given BID JUSTO Fluticasone Propionate 2 spray 04/01/24 09:00 04/01/24 09:09 Fluticasone Propionate Nasal NOSTRIL-B 2 spray TID JUSTO Administration Fluticasone Propionate 2 spray 04/01/24 14:00 04/02/24 08:42 Fluticasone Propionate Nasal NOSTRIL-B 2 spray TID JUSTO Administration Hydroxyzine Pamoate 25 mg 03/31/24 16:30 03/31/24 17:26 Hydroxyzine Pamoate 25 Mg Capsule PO 25 mg Q4H PRN Administration Hydroxyzine Pamoate 25 mg 03/31/24 17:30 04/02/24 08:44 Hydroxyzine Pamoate 25 Mg Capsule PO 25 mg Q4H JUSTO Administration Sodium Chloride 1,000 mls @ 1,000 mls/hr 03/31/24 12:00 03/31/24 15:04 0.9 % Sodium Chloride 1000 Ml IV 03/31/24 12:59 Infused .Q1H JUSTO Infusion Piperacillin Sod/Tazobactam 100 mls @ 200 mls/hr 03/31/24 14:55 03/31/24 15:50 Sod 4.5 gm/ Sodium Chloride IVPB 03/31/24 14:56 Infused ONCE ONE Infusion Piperacillin Sod/Tazobactam 100 mls @ 200 mls/hr 03/31/24 21:30 04/02/24 10:4 0 Sod 3.375 gm/ Sodium Chloride IVPB Infused Q6H JUSTO Infusion Insulin Aspart 20 unit 03/31/24 18:00 04/02/24 07:31 Insulin Aspart 100 Unit/Ml SUBCUT 20 unit TIDWM JUSTO Administration Insulin Aspart 0 unit 03/31/24 17:30 04/02/24 07:32 Insulin Aspart 100 Unit/Ml SUBCUT 3 unit ACHS JUSTO Administration Protocol Insulin Detemir 30 unit 03/31/24 21:00 04/02/24 08:43 Insulin Detemir (Levemir) 100 Unit/Ml SUBCUT Not Given BID JUSTO Meclizine HCl 25 mg 03/31/24 11:50 03/31/24 12:38 Meclizine Hcl 25 Mg Tablet PO 03/31/24 11:51 25 mg ONCE ONE Administration Candesartan 8 Mg 0 mg 04/01/24 21:00 04/01/24 20:46 Tablet PO 8 mg HS [facility] Administration Ondansetron HCl 4 mg 03/31/24 11:50 03/31/24 12:12 Ondansetron 2 Mg/Ml Inj IVP 03/31/24 11:51 4 mg ONCE ONE Administration Ondansetron HCl 4 mg 03/31/24 14:50 03/31/24 15:01 Ondansetron 2 Mg/Ml Inj IVP 03/31/24 14:51 4 mg ONCE ONE Administration Ondansetron HCl 4 mg 03/31/24 16:20 04/01/24 09:40 Ondansetron 2 Mg/Ml Inj IVP 4 mg Q4H PRN Administration Nausea Sodium Chloride 5 ml 03/31/24 21:00 04/02/24 08:43 Sodium Chloride 0.9 % (Flush) 10 Ml Syringe IVF 5 ml BID JUSTO Administration Sodium Chloride 250 ml 03/31/24 23:30 04/02/24 00:24 0.9 % Sodium Chloride 250 Ml IV Not Given Q24H [facility] Medical Decision Making Lab Data Labs: Lab Results 03/31/24 03/31/24 Range/Units 12:00 12:22 WBC 6.78 (4.50-11.00) K/uL RBC 3.51 L (4.30-5.90) m/uL Hgb 11.1 L (13.5-17.5) gm/dL Hct 32.7 L (37.0-53.0) % MCV 93 (80-100) fL MCH 32 (26-34) pg MCHC 34 (32-36) gm/dL RDW Coeff of Isac 13.0 (11.5-15.5) % Plt Count 155 (140-440) K/uL Neut % (Auto) 88.4 H (42.0-72.0) % Lymph % (Auto) 7.5 L (20-44) % Bennett % (Auto) 3.4 (0.0-11.0) % Eos % (Auto) 0.3 (0.0-7.0) % Baso % (Auto) 0.1 (0.0-3.0) % Neut # (Auto) 6.00 (1.7-7.0) K/uL Lymph # (Auto) 0.50 L (0.90-2.90) K/uL Bennett # (Auto) 0.20 (0.00-0.90) K/UL Eos # (Auto) 0.02 (0.00-0.50) K/uL Baso # (Auto) 0.01 (0.00-0.30) K/uL Abs Immat Gran (auto) 0.02 (0.00-0.30) K/uL Imm/Tot Granulo (auto) 0.3 % ESR 28 H (2-15) mm/hr VBG pH 7.326 (7.32-7.43) VBG pCO2 45 (40-50) mmHG VBG pO2 < 30.1 (25-47) mmHG VBG HCO3 24 (21-28) mmol/L Sodium 140 (135-149) mmol/L Potassium 5.1 (3.6-5.1) mmol/L Chloride 105 (96-114) mmol/L Carbon Dioxide 21 (20-32) mmol/L Anion Gap 14 (7-15) mEq/L BUN 30 (7-30) mg/dL Creatinine 1.7 H (0.5-1.5) mg/dL Estimated Creat Clear 48.60 Estimated GFR 45 ml/min Glucose 413 H* (60-115) mg/dL Calcium 9.7 (8.4-10.6) mg/dL Discharge Plan Discharge Clinical Impression: Vertigo, Acute left otitis media, Acute hyperglycemia, Anxiety Condition: Stable Activity Level: No Restrictions Discharge Diet: Diabetic
== END 2024-04-02 12:28 | disposition home or self-care (01) | DRG 153 ==
LOC: ED 11:46 → MEDSURG 16:32
PROVIDERS: Physician Assistant; Admitting Provider Family Medicine; Emergency Provider Emergency Medicine; PCP Family Medicine; Visit Provider Family Medicine
DX: H70.092 Acute mastoiditis with other complications, left ear (principal); H70.12 Chronic mastoiditis, left ear; R42 Dizziness and giddiness; H92.12 Otorrhea, left ear; H65.192 Other acute nonsuppurative otitis media, left ear; R11.2 Nausea with vomiting, unspecified; F41.0 Panic disorder [episodic paroxysmal anxiety]; I12.9 Hypertensive chronic kidney disease with stage 1 through stage 4 chronic kidney disease, or unspecified chronic kidney disease; E11.22 Type 2 diabetes mellitus with diabetic chronic kidney disease; Z79.4 Long term (current) use of insulin; N18.30 Chronic kidney disease, stage 3 unspecified; E11.40 Type 2 diabetes mellitus with diabetic neuropathy, unspecified; I48.0 Paroxysmal atrial fibrillation; F40.240 Claustrophobia; E11.65 Type 2 diabetes mellitus with hyperglycemia; E11.51 Type 2 diabetes mellitus with diabetic peripheral angiopathy without gangrene; I73.9 Peripheral vascular disease, unspecified; N40.0 Benign prostatic hyperplasia without lower urinary tract symptoms; E78.2 Mixed hyperlipidemia
CPT/HCPCS: 36415; 70450; 70480; 80048; 82803; 82962; 85025; 85027; 85651; 87070; 87081; 97112; 97161; 99281; 99284; 99285; A9270; J2405; J2543; J7030; J7050

== ENCOUNTER 2024-11-13 11:52 | Outpatient (CLI) | payer MEDICARE, BC, SELFPAY | END 2024-11-13 11:53 | disposition home or self-care (01) | PROVIDERS: PCP Family Medicine; Visit Provider Family Medicine | DX: E78.2 Mixed hyperlipidemia (principal); E11.9 Type 2 diabetes mellitus without complications; I10 Essential (primary) hypertension; I48.0 Paroxysmal atrial fibrillation; Z79.4 Long term (current) use of insulin | CPT/HCPCS: 80048; 80061; 84460; 85025 ==

== ENCOUNTER 2024-11-28 09:30 | Outpatient (RCR) | payer MEDICARE, BC, SELFPAY | END 2025-03-28 23:59 | disposition home or self-care (01) | PROVIDERS: PCP Family Medicine; Visit Provider Podiatrist | DX: I89.0 Lymphedema, not elsewhere classified (principal); Z51.89 Encounter for other specified aftercare | CPT/HCPCS: 97140; 97165; 97535 ==

== ENCOUNTER 2025-01-30 08:03 | Outpatient (CLI) | payer MEDICARE, BC, SELFPAY ==
--- NOTE | 2025-01-30 08:15 | CRLHL7_ITS ---
For Patients: As a result of the Century Cures Act, medical imaging exams and procedure reports are released immediately into your electronic medical record. You may view this report before your referring provider. If you have questions, please contact your health care provider. INDICATION: Left eye issues. TECHNIQUE: 3D time-of flight and gadolinium bolus magnetic resonance angiography of the neck with 3D MIP reconstructions provided. 20 cc of Dotarem gadolinium based contrast administered. All measurements are based on NASCET criteria. COMPARISON : None. FINDINGS: There is a 3 vessel configuration of the aortic arch. The brachiocephalic artery is patent. The proximal subclavian arteries are patent. Mild stenosis and atherosclerotic irregularity of the mid to distal common carotid artery. Atherosclerotic irregularity of the left common carotid artery without significant stenosis. Mild stenosis of the internal carotid artery origins. The internal carotid arteries beyond the origins are patent. There is mild stenosis of the right proximal external carotid artery trunk. There is advanced stenosis of the left proximal external carotid artery trunk. Stenosis of the cervical vertebral artery origins. The cervical vertebral arteries beyond the origins are patent. No abnormal dilatation of the major cervical arteries. IMPRESSION: 1. Scattered atherosclerotic changes with mild stenosis of the internal carotid artery origins as well as the right mid to distal common carotid artery. 2. Advanced stenosis of the left proximal external carotid artery trunk. There is mild stenosis of the right proximal external carotid artery trunk. 3. Stenosis of both cervical vertebral artery origins. Dictated by Ramírez Smallwood MD @ 01/30/2025 11:38:37 AM (Electronically Signed)
--- NOTE | 2025-01-30 09:15 | CRLHL7_ITS ---
For Patients: As a result of the Cures Act, medical imaging exams and procedure reports are released immediately into your electronic medical record. You may view this report before your referring provider. If you have questions, please contact your health care provider. INDICATION: Left-sided eye issues. TECHNIQUE: Brain and orbits MRI with and without contrast. 20 cc Dotarem gadolinium based intravenous contrast administered. COMPARISON: Brain MRI from 10/13/2024. FINDINGS: Orbits: Ocular globes and lenses: Left-sided pseudophakia. Right globe is normal in appearance. Extra-ocular muscles: Within normal limits. Lacrimal glands and other orbital soft tissues. Within normal limits. Intracranial optic nerve segments: Within normal limits. Intraorbital optic nerve segments and optic chiasm: Within normal limits. Intracranial visual pathways: Within normal limits. Brain: No evidence of acute ischemia. No evidence of acute or chronic intracranial blood products. No mass or pathologic intracranial enhancement. A few small chronic infarcts within the cerebral white matter. Multiple chronic lacunar infarcts within the bilateral thalami. Multiple chronic infarcts within the brainstem. Multiple chronic infarcts within the cerebellar hemispheres. Patchy FLAIR hyperintensities within the supratentorial white matter and brainstem, typical for chronic microvascular ischemic change. Moderate generalized parenchymal volume loss. No hydrocephalus or extra-axial collections. The pituitary gland and parasellar structures are normal. All the major intracranial vascular structures demonstrate normal flow-related signal. No calvarial or skull base marrow signal abnormality. Mild mucosal thickening ethmoid air cells with a mucous retention cyst on the left. Moderate mucosal thickening right maxillary sinus. Left-sided mastoid effusion. A small right frontal scalp subgaleal lipoma. IMPRESSION: 1. Normal appearance of the orbits and visual pathways on dedicated imaging. 2. No acute ischemia or other acute intracranial pathology. 3. No mass or pathologic intracranial enhancement. 4. Multiple chronic infarcts within the cerebral white matter, thalami, brainstem, and cerebellar hemispheres. Stable. 5. Overall moderate burden of chronic microvascular ischemic changes and moderate generalized parenchymal volume loss. Stable. Dictated by Ramírez Smallwood MD @ 01/30/2025 11:52:08 AM (Electronically Signed)
--- NOTE | 2025-01-30 10:15 | CRLHL7_ITS ---
For Patients: As a result of the Cures Act, medical imaging exams and procedure reports are released immediately into your electronic medical record. You may view this report before your referring provider. If you have questions, please contact your health care provider. Dictation for this exam included within the brain MRI report from the same date. Dictated by Ramírez Smallwood MD @ 01/30/2025 11:52:36 AM (Electronically Signed)
== END 2025-01-30 08:04 | disposition home or self-care (01) ==
LOC: MRI 08:04
PROVIDERS: PCP Family Medicine; Visit Provider Family Medicine
DX: H53.9 Unspecified visual disturbance (principal); I63.9 Cerebral infarction, unspecified; I67.82 Cerebral ischemia; I65.23 Occlusion and stenosis of bilateral carotid arteries; E11.9 Type 2 diabetes mellitus without complications; R42 Dizziness and giddiness; H69.90 Unspecified Eustachian tube disorder, unspecified ear; Z79.4 Long term (current) use of insulin
CPT/HCPCS: 70543; 70549; 70553; A9575

== ENCOUNTER 2025-09-18 10:25 | Outpatient (CLI) | payer MEDICARE, BC, SELFPAY | END 2025-09-18 10:26 | disposition home or self-care (01) | PROVIDERS: PCP Family Medicine; Visit Provider Family Medicine | DX: E11.9 Type 2 diabetes mellitus without complications (principal); Z79.4 Long term (current) use of insulin; I10 Essential (primary) hypertension; E78.2 Mixed hyperlipidemia; Z12.5 Encounter for screening for malignant neoplasm of prostate | CPT/HCPCS: 80048; 80061; 84460; G0103 ==